=== PATIENT | female | born 1990 ===

== ENCOUNTER 2022-04-30 15:04 | Outpatient (CLI) | payer BC, SELFPAY ==
--- OUTSIDE RECORDS SUMMARY | 2022-05-05 14:48 | XMS_ITS | Clinical Summary ---
:1990 Author Organization [facility] [place] [address] Care Team Providers Name Role Phone Pcp, No Primary Care Provider Unavailable Allergies Active Allergy Reactions Severity Noted Date Comments Etonogestrel Other - Describe In Comment Field Low 019 Mood symptoms Medications Medication Sig Dispensed Refills Start Date End Date Status FLUoxetine Take 3 90 Capsule 5 04/25/2022 Active (PROZAC) 20 mg Capsules (60 capsuleIndications mg) by mouth : Anxiety and every morning. depression FLUoxetine Take 1 Capsule 30 Capsule 2 12/18/2021 04/20/20 Di scontinued (PROZAC) 20 mg (20 mg) by 22 capsuleIndications mouth every : Anxiety and morning. depression fluticasone (50 Inhale 1-2 16 g 0 03/29/2022 04/07/20 Di scontinued mcg per actuation) Sprays to both 22 (*Med nasal solution nostrils two co mplete/Regimen (FLONASE)Indicatio times daily complete/Level ns: Nasal for 14 days. of care change) congestion fluconazole Take one tab 3 Tablet 0 04/07/2022 04/25/20 Disc ontinued (DIFLUCAN) 150 mg every 2-3 days 22 (*Med tabletIndications: as needed for complete/Regimen Yeast vaginitis yeast. Do not complete/Level use in of care ch danette) metroNIDAZOLE Take 1 Tablet 14 Tablet 0 04/07/2022 04/14/20 E xpired (FLAGYL) 500 mg (500 mg) by 22 tabletIndications: mouth two Bacterial times daily vaginosis for 7 days. FLUoxetine TAKE 1 30 Capsule 0 04/20/2022 04/25/20 Discont inued (PROZAC) 20 mg CAPSULE(20 MG) 22 (Reorder capsuleIndications BY MOUTH EVERY (E-cancel not : Anxiety and MORNING sent)) depression Active Problems Problem Noted Date Severe episode of recurrent major depressive disorder, without psychotic 12/05/2021 features ASCUS with positive high risk HPV cervical 08/06/2017 Overview: 08/14/2017 ASCUS/HPV+ 09/2019 NIL 06/2021 ASCUS/HPV+, HPV 16/18 negative 09/2021: colposcopy: CIN1 at 3 and 9 o'cl ock: PAP SMEAR with HPV in 12 months. Anxiety and depression Resolved Problems Problem Noted Date Resolved Date Nexplanon in place 06/09/2018 06/18/2021 Active labor at term 08/26/2014 08/26/2014 Encounters Date Type Specialty Care Team Description 04/25/2022 Office Visit Kalpana Champion MD Medi cation Management (follow up on A nxiety and Depression and medication Fluoxetine. ) 04/25/2022 Travel 04/19/2022 Refill Kalpana Champion MD Refi ll Request (Fluoxetine) 04/07/2022 Office Visit Gino Johnson Thro at Problem; Ear Problem 04/07/2022 Office Visit Throat Problem 04/07/2022 Travel 03/29/2022 Office Visit Gina Guido, KHUSHI Throat P ain/problem (Sore throat, nasal d rainage x 5 days); Ear Pain /problem (Right ear pain - worse when laying down) 03/29/2022 Travel from Last 3 Months Immunizations Name Administration Dates Next Due DTP 12/13/1995, 10/10/1994, 04/03/1993, 1992 DTaP 01/17/1998, 12/13/1995, 10/10/1994, 04/03/1993, 1992 Hepatitis B (Peds) 06/12/2005, 01/14/1996, 12/13/1995 Hepatitis B, Unspecified 06/12/2005, 01/14/1996, 12/13/1995 Hib Conjugate, Unspecified 01/14/1996, 12/13/1995 Inactivated Polio Vaccine 01/17/1998, 12/13/1995, 10/10/1994 , 04/03/1993, 1992 MMR 08/29/2014, 01/17/1998, 03/04/1993 Meningococcal Vaccine 08/29/2014 Meningococcal, Unspecified 08/29/2014 Oral Polio Vaccine 01/17/1998 Polio Virus, Unspecified 12/13/1995, 10/10/1994, 04/03/1993, 1992 Td (Age >=7 Years) 02/18/2012, 01/08/2005 Td, Preservative Free (age >= 7 Years) 01/08/2005 Tdap 03/05/2020, 02/18/2012 Family History Medical History Relation Name Comments No Known Problems Brother No Known Problems Daughter No Known Problems Father No Known Problems Half-Brother No Known Problems Half-Sister No Known Problems Maternal Aunt No Known Problems Maternal Grandfather No Known Problems Maternal Grandmother No Known Problems Maternal Uncle Diabetes Mother No Known Problems Other No Known Problems Paternal Aunt No Known Problems Paternal Grandfather No Known Problems Paternal Grandmother No Known Problems Paternal Uncle Cancer-breast Sister Deep vein thrombosis Sister No Known Problems Son Relation Name Status Comments Brother Daughter Father Alive Half-Brother Half-Sister Maternal Aunt Maternal Grandfather Maternal Grandmother Maternal Uncle Mother Alive Other Paternal Aunt Paternal Grandfather Paternal Grandmother Paternal Uncle Sister Son Social History Tobacco Use Types Packs/Day Years Used Date Current Every Day Smoker Cigarettes 0.25 8 Smokeless Tobacco: Never Used Qu it: 04/03/2014 Tobacco Cessation: Ready to Quit: Yes; C ounsshyla Given: Yes Comments: 2-3 cigerttes a day Alcohol Use Standard Drinks/Week Comments Yes 0 (1 standard drink = 0.6 oz pure occasi onally wine, beer or liquor alcohol) Alcohol Habits Answer Date Recorded How often do you have a drink Not asked containing alcohol? How many drinks containing alcohol do Not asked you have on a typical day when you are drinking? How often do you have six or more Not asked drinks on one occasion? 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 Obstetrics History Para Term AB IAB SAB Ectopic Multiple Living Live Births 1 1 1 0 0 0 0 0 0 1 1 Date Outcome GA Total Labor/2nd/3rd Weight Sex Delivery Anes PTL Julee A 1 A5 Name Clin Labor 08/26 Term 38w 3.88 kg M Spina N Steffi 9 9 AGUILAR Coppe /2014 6d (8 lb l ng ,BB s, 8.9 oz) (CELE paula ) B Delivery Location: [facility] Last Filed Vital Signs Vital Sign Reading Time Taken Comments Blood Pressure 95/60 04/25/2022 10:57 AM BATTERY INSPECTOR Pulse 74 04/25/2022 10:57 AM BATTERY INSPECTOR Temperature 36.6 ??C (97.8 ??F) 04/07/2022 8:05 PM CDT Respiratory Rate 16 04/07/2022 8:05 PM CDT Oxygen Saturation 98% 04/25/2022 10:57 AM BATTERY INSPECTOR Inhaled Oxygen Concentration - - Weight 78 kg (172 lb 1 oz) 04/25/2022 10:57 AM BATTERY INSPECTOR Height 161.3 cm (5' 3.5) 12/18/2021 2:52 PM CDT Body Mass Index 30 12/18/2021 2:52 PM CDT Plan of Treatment Upcoming Encounters Date Type Specialty Care Team Description 05/26/2022 Office Visit Kalpana Champion MD [address] [place], [place] [address] (Wo rk) Health Maintenance Due Date Last Done Comments Pneumococcal series for age 19-64 1998 (1 - PCV) HIV for age 15-65 10/02/2007 Hepatitis C screening for age 0410/01/2010 18-79 COVID-19 vaccine series (2 - 11/13/2020 10/23/2020 Pfizer series) Influenza for age 9-49 02/06/2022 Pap test for age 21-65 09/17/2022 09/17/2021, 06/18/2021, 06/18/2021, Additional history exists BMI (ht and wt on same day) for 12/18/2022 12/18/2021, 11/07, age 18+ 09/17/2021, Additional history exists Depression screening for age 12+ 04/25/2023 04/25/2022, , 12/04/2021, Additional history exists Tetanus booster 03/05/2030 03/05/2020, 02/18/2012, 02/18/2012, Additional history exists Tdap Completed 03/05/2020, 02/18/2012 Procedures Procedure Name Priority Date/Time Associated Comments Diagnosis THROAT RAPID STREP STAT 04/07/2022 8:15 PM Sore throat Res ults for this ONLY CLINIC CDT procedure are i n the results section. URINALYSIS STAT 04/07/2022 8:07 PM Dysuria Results f or this MICROSCOPIC CDT procedure are i n the results section. UA W/ SEDIMENT EXAM STAT 04/07/2022 8:07 PM Dysuria Re sults for this REFLEXED PER CRITERIA CDT proced ure are in the results section. from Last 3 Months Results THROAT RAPID STREP ONLY CLINIC (04/07/2022 8:15 PM CDT) Analysis Performed At [facility] Time Signature THROAT RAPID Negative 04/07/2022 [place] STREP A 8:32 PM CDT [facility] Specimen Anatomical Collection Method Collection Time Receive d Time (Source) Location / / Volume Laterality Throat SPECIMEN FROM Non-Blood / 04/07/2022 8:15 PM 04/07/20 22 8:21 THROAT / Unknown Unknown CDT PM CDT Gino Johnson MD MICROBIOLOGY Performing Organization Address City/State/ZIP Code Phon e Number [facility] [address] [place] [address] (ABNORMAL) URINALYSIS MICROSCOPIC (04/07/2022 8:07 PM CDT) Patholo gist Method Time Signature RBC 0-2 0-2, None 04/07/2022 [place] Seen /HPF 8:34 PM [facility]T [facility] WBC 26-50 (A) 0-2, 3-5, 04/07/2022 [place] None Seen 8:34 PM [facility]T [facility] /HPF LABORATORY BACTERIA Few None 04/07/2022 [place] Seen, 8:34 PM CDT [facility] Rare, Few LABORATORY Bacteria/ HPF EPITHELIAL Many (A) None 04/07/2022 [place] CELLS Seen, Few 8:34 PM [facility] Epi/HPF LABORATORY Mucus Present 04/07/2022 [facility] 8:34 PM [facility] Specimen Anatomical Collection Method Collection Time Receive d Time (Source) Location / / Volume Laterality Urine URINE SPECIMEN / Non-Blood / 04/07/2022 8:07 PM 04/07 8:16 Unknown Unknown [facility] G[facility] MD URINE Performing Organization Address City/State/ZIP Code Phon e Number [facility] [address] [place] [address] (ABNORMAL) UA W/ SEDIMENT EXAM REFLEXED PER CRITERIA (04/07/2022 8:07 PM [facility] Method Time Signature COLOR Yellow Yellow Color 04/07/2022 [place] 8:34 PM [facility] CLARITY Cloudy (A) Clear 04/07/2022 [place] Clarity 8:34 PM [facility] SPECIFIC >=1.030 (A) 1.010, 04/07/2022 [facility] GRAVITY,URINE 1.015, 8:34 PM [facility] MEDICAL 1.020, 1.025 CENTER LABORATORY PH,URINE 6.0 6.0, 7.0, 04/07/2022 [place] 8.0, 5.5, 8:34 PM [facility] 6.5, 7.5, CENTER 8.5 LABORATORY UROBILINOGEN, Normal Normal EU/dl 04/07/2022 [place] QUALITATIVE 8:34 PM [facility] PROTEIN, Trace (A) Negative 04/07/2022 [facility] URINE mg/dL 8:34 PM [facility] GLUCOSE, Negative Negative 04/07/2022 [place] URINE mg/dL 8:34 PM [facility] KETONES,URINE Negative Negative 04/07/2022 [facility] mg/dL 8:34 PM [facility] BILIRUBIN,URI Abnormal (A) Negative 04/07/2022 [facility] [place] 8:34 PM [facility] Comment: A variety of metabolites and/or medications may result in a positive bilirubin result. Clinical correlation i s recommended. OCCULT BLOOD,URINE Negative Negative 04/07/2022 8:34 PM [facility] NITRITE Negative Negative 04/07/2022 8:34 PM [facility] LEUKOCYTE ESTERASE Large (A) Negative 04/07/2022 8:34 PM [facility] Specimen Anatomical Collection Method Collection Time Receive d Time (Source) Location / / Volume Laterality Urine URINE SPECIMEN / Non-Blood / 04/07/2022 8:07 PM 04/07 8:16 Unknown Unknown CDT PM CDT Gino Johnson MD URINE Performing Organization Address City/State/ZIP Code Phon e Number [facility] [address] [place] [address] from Last 3 Months Insurance Payer Benefit Plan / Subscriber ID Effective Dates Phone Addre ss Type Group BLUE [employer]OSS [place] BLUE ADVANTAGE [id number] 2019-Present [address] [address] [place] [address] [place] [address] [facility] Health/Steve Employer 06/08/2000 [place] [employer] [place] (Home) DEPT [id number] [place] [phone] [facility] Pearl TERRY (Work) JOSH ENGLE [id number] Advance Directives Latest Code Status on File Code Status Date Activated Date Inactivated Comments Full Code 08/26/2014 12:09 AM 08/29/2014 4:20 PM Full Code 08/25/2014 11:28 PM 08/26/2014 12:09 AM Full Code 05/05/2014 7:44 AM 05/05/2014 11:15 AM Care Teams [employer] Relationship Specialty Start Date End Date Pcp, No PCP - General 05/05/14 .
--- OUTSIDE RECORDS SUMMARY | 2022-05-05 14:48 | XMS_ITS | Clinical Summary ---
:1990 Author Organization [facility] Address [address] [place] [address] Care Team Providers Name Role Phone Unavailable Primary Care Provider Unavailable Source Comments Patient records contain information from all sites at [facility]. For routine questions regarding patient records, call [phone] during business hours, M-F 8:00 AM - 5:00 PM Central Time. Record requests for emergency care only can be directed to [phone] at any time.[facility] Allergies No known active allergies Medications No known medications Active Problems No known active problems Immunizations Name Administration Dates Next Due DTP 12/13/1995, 10/10/1994, 04/03/1993, 11/07 DTaP (Infanrix, [employer]) 01/17/1998 HepB, Unspecified 06/12/2005, 01/14/1996, 12/13/1995 MMR 01/17/1998, 03/04/1993 OPV 01/17/1998 Tdap 02/18/2012 Family History Medical History Relation Name Comments Diabetes Mother Relation Name Status Comments Mother Social History Tobacco Use Types Packs/Day Years Used Date Smoking Tobacco: Every Day Sex Assigned at Date Recorded Not on file Last Filed Vital Signs Vital Sign Reading Time Taken Comments Blood Pressure 95/62 08/02/2021 10:05 AM LEAVE SPECIALIST Pulse 71 08/02/2021 10:05 AM LEAVE SPECIALIST Temperature - - Respiratory Rate 20 01/03/2014 4:40 PM CDT Oxygen Saturation - - Inhaled Oxygen Concentration - - Weight 72 kg (158 lb 11.7 oz) 08/02/2021 10:05 AM LEAVE SPECIALIST Height 163 cm (5' 4.17) 08/02/2021 10:05 AM LEAVE SPECIALIST Body Mass Index 27.1 08/02/2021 10:05 AM LEAVE SPECIALIST Plan of Treatment Health Maintenance Due Date Last Done Comments Hepatitis C Screening 1990 Tobacco Cessation counseling 1992 Pneumococcal vaccine (0-64 years) 1998 (1 - PCV) COVID-19 Vaccine (2 - Pfizer 11/13/2020 10/23/2020 series) Depression Screening (Annual 06/08/2021 PHQ-2) Influenza Vaccine (#1) 2022 Cervical Cancer Screening 06/18/2024 06/18/2021 DTaP,Tdap,and Td Vaccines (8 - Td 03/05/2030 03/05/2020, , or Tdap) 01/08/2005, Additional history exists Hepatitis B Vaccines Completed 06/12/2005, 06/12/2005, 01/14/1996, Additional history exists HIV Screening Completed 03/14/2014 Insurance Payer Benefit Plan Subscriber ID Effective Phone Address Typ e / Group Dates BLUE CROSS BCBS BLUE [id number] 2019-Prese ATTN: Dilcia myers HMO BLUE SHIELD PLUS HMO nt [employer] [facility] [address] [address] [place] [address]
--- OUTSIDE RECORDS SUMMARY | 2022-05-05 14:49 | XMS_ITS | Encounter Summary ---
:1990 Author Organization [facility] Address [address] [place] [address] Care Team Providers Name Role Phone Unavailable Primary Care Provider Unavailable Encounter Details Date Type Department Care Team Description 08/25/2014 Hospital Encounter [facility]X [facility]BGY[facility]cy Wilson M.D. [address] [place], [place] [phone] (Wo rk) Social History Tobacco Use Types Packs/Day Years Used Date Smoking Tobacco: Never Assessed Sex Assigned at Date Recorded Not on file documented as of this encounter Last Filed Vital Signs Vital Sign Reading Time Taken Comments Blood Pressure 110/68 08/25/2014 2:18 PM CDT Pulse - - Temperature - - Respiratory Rate - - Oxygen Saturation - - Inhaled Oxygen Concentration - - Weight 83.9 kg (184 lb 15.5 oz) 08/25/2014 2:18 PM CDT Height 163 cm (5' 4.17) 08/25/2014 2:18 PM CDT Body Mass Index 31.58 08/25/2014 2:18 PM CDT documented in this encounter Progress Notes Tessy Gannon M.D. - 08/25/2014 2:44 PM CDT CHIEF COMPLAINT: care, third trimester. HISTORY OF PRESENT ILLNESS: This patient presents for a visit in the third trimester. She has no unusual complaints today and is not experiencing severe hyperemesis nor vaginal bleeding. She is tolerating PO well, and is taking vitamins. movement is reported as good. CURRENT MEDICATIONS and ALLERGIES have been reviewed and are current in the EMR as of today's date. Refer to the patient's accompanying ACOG form for established TAMY, documentation of prior obstetric history, laboratory information, and summary of medical record. Physical exam: Vital signs are reviewed, stable, and in the normal range as documented in the EMR as of today's date. General: well nourished, well developed female in no acute distress. Weight gain is documented on the ACOG form. Fundal height is appropriate for gestational age. Heart Tones are in the normal range by doppler interrogation. OB labs reviewed today. Glucose test results and hemoglobin are documented in the EMR. A group B strep test is documented in the EMR. Cervical exam was performed, results are 1-2 cm, membranes were swept IMPRESSION/REPORT/PLAN: Third trimester . Recommendations: Follow up visit is scheduled in one week. kick counts is an important home monitor of well being. Report to labor and delivery (which is staffed 24 hours a day) when regular, frequent, painful contractions are present. Report also if vaginal bleeding nor rupture of membranes occurs (as evidenced bya gush of clear fluid followed by continued leakage). Tessy Morocho CC: Labor and Delivery Electronically Signed By: TESSY GANNON MD On: 08/25/2014 02:44 PM Source: [facility] POWERCHART Document Id: [id number] documented in this encounter Nursing Notes Tessy Gannon M.D. - 08/25/2014 2:43 PM CDT Ambulatory Patient Education The following Patient Education Materials have been given to the patient: Patient Education Materials: Mud Worker Adapting to : Third Trimester Mud Worker Adapting to : Third Trimester Although common during , some discomforts may seem worse in the final weeks. Simple lifestyle changes can help. Take care of yourself. And ask your partner to help out with small tasks. Limiting Leg Problems ?? Wear support hose all day. ?? Avoid snug shoes and clothes that bind, such as tight pants and socks with elastic tops. ?? Sit with your feet and legs raised often. Caring for Your Breasts ?? Wash with plain water. Avoid using harsh soaps or rubbing alcohol. They may cause dryness. ?? Wear a nursing bra for extra support. It can also hide any leaks from your nipples. Controlling Hemorrhoids ?? Eat foods that are high in fiber. Also, exercise and drink enough fluids. This will reduce constipation and hemorrhoids. ?? Sleep and nap on your side. This limits pressure on the veins of the rectum. ?? Try not to stand or sit for long periods. Controlling Back Pain As your body changes during , your back must work in new ways. Back pain is due to many causes. Physical changes in your body can strain your back and its supporting muscles. Also, hormones (chemicals that carry messages throughout the body) increase during . This can affect how the muscles and joints work together. All of these changes can lead to pain. Pain may occur in the upper or lower back. Pain is also common in the pelvis. Some women have sciatica, pain caused by pressure on the sciatic nerve running down the back of the leg. Ask your healthcare provider for specific tips and exercises to help control your back pain. Tips to Help You Rest Good rest and sleep will help you feel better. Here are some ideas: ?? Ask your partner to massage your shoulders, neck, or back. ?? Limit the errands you do each day. ?? Lie down in the afternoon or after work for a few minutes. ?? Take a warm bath before you go to sleep. ?? Drink warm milk or teas without caffeine. ?? Avoid coffee, black tea, and cola. Stopping Heartburn Avoid spicy or acidic foods. Eat small amounts more often. Eat slowly. Wait 2 hours after eating before lying down. Sleep with your upper body raised 6 inches. Managing Mood Swings ?? Know that mood changes are normal. ?? Exercise often, but get plenty of rest. ?? Address any concerns and limit stress. Talking to your partner, other women, or your healthcare provider may help. Dealing with Urinary Frequency ?? Drink plenty of water all day. If you drink a lot in the evening, though, you may have to get up more in the night. ?? Limit coffee, black tea, and cola. ?? [id number] Jocy Moreno, [address] [place] [address], [place] [address]. All rights reserved. This information is not intended as a substitute for professional medical care. Always follow your healthcare professional's instructions. This document has images extracted. Please consider using [employer] for all your patient education needs. Source: [facility] POWERCHART Document Id: [id number] documented in this encounter Miscellaneous Notes Miscellaneous - Alfredo Powell - 08/28/2014 11:13 AM CDT Reminder Msg-reminder call Document Contains Addenda Addendum by ALFREDO POWELL on 20 September 2014 14:44:42 CDT Called patient to remind of 6 week post check on 10-06-14 at 10:[address] Gannon From: ALFREDO POWELL To: ALFREDO POWELL; Sent: 08/28/2014 11:13:54 CDT Show up: 09/18/2014 08:00:00 CDT Subject: Reminder Msg-reminder call Due Date/Time: 09/18/2014 08:00:00 CDT Please Remember to: Call patient to schedule a 6 week post check on 10-02-[address] Gannon PATIENT: ( ) Call Patient ( ) Ask Patient to ( ) ( ) Call Relative ( ) Schedule Patient ( ) ( ) Call for Billing Services Manager ( ) Follow up on Results ( ) Other: PROVIDER: ( ) Call Physician ( ) Call Pharmacist ( ) Call Lab ( ) Other: Special Instructions: Comments: Source: [facility] POWERCHART Document Id: [id number] Miscellaneous - Tessy Gannon M.D. - 08/25/2014 2:43 PM CDT Ambulatory Patient Summary [facility] [address] [place] [id number] Visit Information Name: CELE AGUILAR [facility] Number: [id number] Current Date: 08/25/2014 14:43:51 Physicians Attending Provider: TESSY GANNON MD Primary Care Provider: PCP, UNASSIGNED - CELE SHAY has been given the following list of follow-up instructions, medication list, and patient education materials: Follow-up Instructions Your Medications Here is a list of your medications. It is important to take your medications as directed. Use a pillbox or chart to help remind you to take your medications. Please let your doctor or nurse know if you have problems taking your medications. Medication/Strength How to Take Indications/Special Instructions/Comments/Notes for Patient Medication Changes/Routing clotrimazole topical (Clotrimazole-7 vaginal cream with applicator) 1 shelia, Vaginal, once a day (at bedtime) multivitamin, ( Multivitamins oral tablet) 1 Tablet(s), Oral, once a day Stop Taking the Following Medications: Medication list as of 08-25-14 14:43 Attention: If you have any medications at home that are not on this list, DO NOT take them until youcontact your provider for clarification. Give a copy of your medication list to your primary care provider. Update your medication list any time medications or doses are changed and carry your medication list at all times in case of emergency. Electronically Signed By: TESSY GANNON MD Signed On:25-AUG-2014 14:43:39 Your Allergies & Intolerances Substance Reaction Symptoms Category Comments No Known Allergies Drug Your Problem List Problem Status Onset Comments Active 11/27/2013 Your Upcoming Appointments Date Time Location Provider 09/01/2014 14:45 [facility] CLINICAL ASSESSMENT MANAGER Tessy Gannon MD Attention: Contact your local Clinic if further appointment detail needed. Adapting to : Third Trimester Although common during , some discomforts may seem worse in the final weeks. Simple lifestyle changes can help. Take care of yourself. And ask your partner to help out with small tasks. Limiting Leg Problems ?? Wear support hose all day. ?? Avoid snug shoes and clothes that bind, such as tight pants and socks with elastic tops. ?? Sit with your feet and legs raised often. Caring for Your Breasts ?? Wash with plain water. Avoid using harsh soaps or rubbing alcohol. They may cause dryness. ?? Wear a nursing bra for extra support. It can also hide any leaks from your nipples. Controlling Hemorrhoids ?? Eat foods that are high in fiber. Also, exercise and drink enough fluids. This will reduce constipation and hemorrhoids. ?? Sleep and nap on your side. This limits pressure on the veins of the rectum. ?? Try not to stand or sit for long periods. Controlling Back Pain As your body changes during , your back must work in new ways. Back pain is due to many causes. Physical changes in your body can strain your back and its supporting muscles. Also, hormones (chemicals that carry messages throughout the body) increase during . This can affect how the muscles and joints work together. All of these changes can lead to pain. Pain may occur in the upper or lower back. Pain is also common in the pelvis. Some women have sciatica, pain caused by pressure on the sciatic nerve running down the back of the leg. Ask your healthcare provider for specific tips and exercises to help control your back pain. Tips to Help You Rest Good rest and sleep will help you feel better. Here are some ideas: ?? Ask your partner to massage your shoulders, neck, or back. ?? Limit the errands you do each day. ?? Lie down in the afternoon or after work for a few minutes. ?? Take a warm bath before you go to sleep. ?? Drink warm milk or teas without caffeine. ?? Avoid coffee, black tea, and cola. Stopping Heartburn Avoid spicy or acidic foods. Eat small amounts more often. Eat slowly. Wait 2 hours after eating before lying down. Sleep with your upper body raised 6 inches. Managing Mood Swings ?? Know that mood changes are normal. ?? Exercise often, but get plenty of rest. ?? Address any concerns and limit stress. Talking to your partner, other women, or your healthcare provider may help. Dealing with Urinary Frequency ?? Drink plenty of water all day. If you drink a lot in the evening, though, you may have to get up more in the night. ?? Limit coffee, black tea, and cola. ?? [id number] [facility], [address] [place] [address], [place] [address]. All rights reserved. This information is not intended as a substitute for professional medical care. Always follow your healthcare professional's instructions. Your Goals/Additional instructions: This document has images extracted. Please consider using [employer] for all your patient education needs. Source: [facility] POWERCHART Document Id: [id number] Axel - Tessy Gannon M.D. - 08/25/2014 2:43 PM CDT Ambulatory Discharge Medication List [facility] [address] [place], [place] [address] [place] [id number] Visit Information Name: CELE AGUILAR [facility] Number: [id number] Visit Date: 08/25/2014 14:43:50 Attending Provider: TESSY GANNON MD Primary Care Provider: PCP, UNASSIGNED - CELE SHAY has been given the following list of medications: Your Medications It is important to take your medications as directed. Use a pill box or chart to help remind you to take your medications. Please let your doctor or nurse know if you have problems taking your medications. Medication/Strength How to Take Indications/Special Instructions/Comments/Notes for Patient Medication Changes/Routing clotrimazole topical (Clotrimazole-7 vaginal cream with applicator) 1 shelia, Vaginal, once a day (at bedtime) multivitamin, ( Multivitamins oral tablet) 1 Tablet(s), Oral, once a day Stop Taking the Following Medications: Medication list as of 08-25-14 14:43 Attention: If you have any medications at home that are not on this list, DO NOT take them until youcontact your provider for clarification. Give a copy of your medication list to your primary care provider. Update your medication list any time medications or doses are changed and carry your medication list at all times in case of emergency. Electronically Signed By: TESSY GANNON MD Signed On:25-AUG-2014 14:43:39 Additional Information: Source: [facility] POWER[facility] Document Id: [id number] Axel - Lisa Hernandez, L.P.N. - 08/25/2014 2:18 PM CDT Adult Department Director Intake/History Adult Department Director Intake/History Entered On: 08/25/2014 14:22 CDT Performed On: 08/25/2014 14:18 CDT by LISA HERNANDEZ Intake Chief Complaint : 38 5/7 wk ob check Systolic Blood Pressure : 110 mmHg Diastolic Blood Pressure : 68 mmHg NIBP Mean : 82 mmHg BP Location : Left upper extremity Blood Pressure Cuff Size : Large Height : 163 cm(Converted to: 5 ft 4 inch(es), 64 inch(es)) Actual Weight : 83.9 kg(Converted to: 184 lb 15 oz) Dosing Weight Clinic : 83.9 kg Clinic BSA : 1.95 Body Mass Index : 31.58 kg/m2 LISA HERNANDEZ - 08/25/2014 14:18 CDT General Info Languages : Tamazight, Armenian Is Patient Female and 13-50 no hysterectomy : No LISA HERNANDEZ - 08/25/2014 14:18 CDT Subjective Pain Symptoms : No LISA HERNANDEZ - 08/25/2014 14:18 CDT Dependent Habits Tobacco Use/Currently Using : Yes Exposure to Tobacco Smoke : Patient smokes Smoking Status : Current every day smoker LISA HERNANDEZ - 08/25/2014 14:18 CDT Tobacco Use Grid Type : Cigarettes Cigarette Use Packs/Day : 0.5 LISA HERNANDEZ - 08/25/2014 14:18 CDT ID Screen Travel Within Last 21 Days : No Contact with someone with Ebola : No LISA HERNANDEZ - 08/25/2014 14:18 CDT Source: k[facility]ARIA Document Id: [id number] CDT!29 documented in this encounter Plan of Treatment Not on filedocumented as of this encounter Visit Diagnoses Not on filedocumented in this encounter
--- OUTSIDE RECORDS SUMMARY | 2022-05-05 14:49 | XMS_ITS | Encounter Summary ---
:1990 Author Organization [facility] Address [address] [place] [address] Care Team Providers Name Role Phone Unavailable Primary Care Provider Unavailable Reason for Visit Reason Comments [facility]O REview [facility] Encounter Details Date Type Department Care Team Description 08/05/2021 Office Visit Department of Occupational Yousif Villa, Drug Screen Medicine in Cesar Segura M.D., M.P. H. [address] [phone] (Wo rk) Social History Tobacco Use Types Packs/Day Years Used Date Smoking Tobacco: Every Day Sex Assigned at Date Recorded Not on file documented as of this encounter Progress Notes Edna Brothers L.PLupisN. - 08/05/2021 8:45 AM CST MRO Review for [facility]. CASE ASSEMBLER documented in this encounter Plan of Treatment Not on filedocumented as of this encounter Visit Diagnoses Diagnosis Drug Screen documented in this encounter Additional Health Concerns Assessment Noted Time PHQ-9 Depression Total Score: 6 11/12/2015 4:00 PM CDT documented as of this encounter
--- OUTSIDE RECORDS SUMMARY | 2022-05-05 14:49 | XMS_ITS | Encounter Summary ---
:1990 Author Organization [facility] Address [address] [place] [address] Care Team Providers Name Role Phone Unavailable Primary Care Provider Unavailable Encounter Details Date Type Department Care Team Description 04/20/2014 Hospital Encounter HX [facility] Mercy Desai M.D. [address] [place], [place] [phone] (Wo rk) Social History Tobacco Use Types Packs/Day Years Used Date Smoking Tobacco: Never Assessed Sex Assigned at Date Recorded Not on file documented as of this encounter Last Filed Vital Signs Vital Sign Reading Time Taken Comments Blood Pressure - - Pulse - - Temperature - - Respiratory Rate - - Oxygen Saturation - - Inhaled Oxygen Concentration - - Weight - - Height 163 cm (5' 4.17) 04/20/2014 10:23 AM HORIZONTAL BORING MILL OPERATOR Body Mass Index - - documented in this encounter Plan of Treatment Not on filedocumented as of this encounter Procedures Procedure Name Priority Date/Time Associated Diagnosis Comme nts US OB GREATER THAN Routine 04/20/2014 10:36 AM Re sults for this 14 WEEKS HORIZONTAL BORING MILL OPERATOR procedure are i n the results section. documented in this encounter Results US OB Greater than 14 weeks (04/20/2014 10:36 AM HORIZONTAL BORING MILL OPERATOR) Anatomical Region Laterality Modality Ultrasound Specimen (Source) Anatomical Collection Method Collection Time Re ceived Time Location / / Volume Laterality 04/20/2014 10:36 AM HORIZONTAL BORING MILL OPERATOR Addenda Addendum by Provider, Kay Sims 04/20/2014 10:36 AM HORIZONTAL BORING MILL OPERATOR RAD^^^OW US OB Greater than 14 weeks 04/20/2014 10:36:07 Impressions 04/21/2014 2:57 PM HORIZONTAL BORING MILL OPERATOR 1. Viable with TAMY of August , consistent with prior dates. 2. anatomic survey appears normal, gender is male. In general, it is reasonable to use the sonographically derived TAMY if it differs from that calculated using the last menstrual period (LMP) by more than seven days in the fir st trimester and by more than 10 days in the second trimester. In the third trimester, a three-week discrepancy between LMP dating and ultra sound dating is allowed before changing TAMY. No anomalies were detected by estela france's survey. Results shared with the patient were done with a n understanding of the limitations of ultrasound for detection of aneuploidy, as well as congenital heart defects. [facility] in [place] MANAGER SOURCING Dept. [phone] Narrative 04/21/2014 2:57 PM HORIZONTAL BORING MILL OPERATOR EXAM: US OB Greater than 14 weeks INDICATION: Survey REFERRING PHYSICIAN: Jagdeep MAGNET VALVE ASSEMBLER: Juliana Recio RDMS. : 9 ?? PARA: 5 LMP: November 20, 2013 ? TAMY by LMP: Aug ?EGA by LMP: 21 weeks and 4 days NUMBER: One ??CHORIONICITY: N/A UTERUS: Visually normal. CERVIX: 3.9 cm PLACENTA: Posterior with no evidence of placenta previa nor abruption. ADNEXA: Visually normal, no adnexal mass es detected. AMNIOTIC FLUID INDEX: Appropriate and no rmal for gestational age at 10.7 cm. BIOMETRY GA(BPD): 4.79 cm, 20 weeks and 3 days GA(HC): 18.0 cm, 20 weeks and 2 days GA(AC): 15.1 cm, 20 weeks and 2 days GA(FL): 3.37 cm, 20 weeks and 4 days GA(HL): 3.19 cm, 20 weeks and 4 days Based on the above, the average ultrasou nd age is 20 weeks and 2 days. See 'Impression' below for ultrasound ca lculation of Estimated Date of Delivery (TAMY). The following anatomic features we re well visualized and appear normal today: SPINE (longitudinal and transverse): Nor mal CEREBELLUM: Normal CISTERNA MAGNA: Normal NUCHAL FOLD: Normal LATERAL VENTRICLES: Normal CHOROID PLEXUS: Normal FOUR CHAMBER HEART: Normal HEART RATE: 160 beats per minute CARDIAC AXIS: Normal RIGHT AND LEFT OUTFLOW TRACTS: Normal ANTERIOR ABDOMINAL WALL: Normal DIAPHRAGM: Normal CORD INSERTION: Normal THREE VESSEL CORD: Normal STOMACH: Normal BLADDER: Normal KIDNEYS: Normal EXTREMITIES (arms and legs): Normal HANDS AND FEET: Normal ORBITS: Normal PROFILE: Normal NOSE AND LIPS: Normal CORD INSERTION AT PLACENTA: Normal Procedure Note Shamar Gannon M.D. / Provider, Funmilayo blevins M.D. - 10/18/2016 EXAM: US OB Greater than 14 weeks INDICATION: Survey REFERRING PHYSICIAN: Jagdeep MAGNET VALVE ASSEMBLER: Juliana Recio RDMS. : 9 PARA: 5 LMP: November 20, 2013 TAMY by LMP: August 27, 2014 EGA by LMP: 21 weeks and 4 days NUMBER: One CHORIONICITY: N/A UTERUS: Visually normal. CERVIX: 3.9 cm PLACENTA: Posterior with no evidence of placenta previa nor abruption. ADNEXA: Visually normal, no adnexal mass es detected. AMNIOTIC FLUID INDEX: Appropriate and no rmal for gestational age at 10.7 cm. BIOMETRY GA(BPD): 4.79 cm, 20 weeks and 3 days GA(HC): 18.0 cm, 20 weeks and 2 days GA(AC): 15.1 cm, 20 weeks and 2 days GA(FL): 3.37 cm, 20 weeks and 4 days GA(HL): 3.19 cm, 20 weeks and 4 days Based on the above, the average ultrasou nd age is 20 weeks and 2 days. See 'Impression' below for ultrasound ca lculation of Estimated Date of Delivery (TAMY). The following anatomic features we re well visualized and appear normal today: SPINE (longitudinal and transverse): Nor mal CEREBELLUM: Normal CISTERNA MAGNA: Normal NUCHAL FOLD: Normal LATERAL VENTRICLES: Normal CHOROID PLEXUS: Normal FOUR CHAMBER HEART: Normal HEART RATE: 160 beats per minute CARDIAC AXIS: Normal RIGHT AND LEFT OUTFLOW TRACTS: Normal ANTERIOR ABDOMINAL WALL: Normal DIAPHRAGM: Normal CORD INSERTION: Normal THREE VESSEL CORD: Normal STOMACH: Normal BLADDER: Normal KIDNEYS: Normal EXTREMITIES (arms and legs): Normal HANDS AND FEET: Normal ORBITS: Normal PROFILE: Normal NOSE AND LIPS: Normal CORD INSERTION AT PLACENTA: Normal IMPRESSION: 1. Viable with TAMY of August , consistent with prior dates. 2. anatomic survey appears normal, gender is male. In general, it is reasonable to use the sonographically derived TAMY if it differs from that calculated using the last menstrual period (LMP) by more than seven days in the fir st trimester and by more than 10 days in the second trimester. In the third trimester, a three-week discrepancy between LMP dating and ultra sound dating is allowed before changing TAMY. No anomalies were detected by estela france's survey. Results shared with the patient were done with a n understanding of the limitations of ultrasound for detection of aneuploidy, as well as congenital heart defects. [facility] in [place] MANAGER SOURCING Dept. [phone] Juliana Recio R.V.T., RCandice.MLupisS. IMG OB US PROCEDURE S documented in this encounter Visit Diagnoses Not on filedocumented in this encounter
--- OUTSIDE RECORDS SUMMARY | 2022-05-05 14:49 | XMS_ITS | Encounter Summary ---
:1990 Author Organization [facility] Address [address] [place] [address] Care Team Providers Name Role Phone Unavailable Primary Care Provider Unavailable Encounter Details Date Type Department Care Team Description 01/24/2014 Hospital Encounter [facility] Tessy Gannon M.D. [address] [place], [place] [phone] (Wo rk) Social History [...] - - Height 163 cm (5' 4.17) 01/24/2014 3:49 PM CDT Body Mass Index - - documented in this encounter Miscellaneous Notes Miscellaneous - Tessy Gannon M.D. - 01/25/2014 7:45 AM CDT Results Notification Document Contains Addenda Addendum by KVNG PHILLIPS on 26 January 2014 10:26:35 CDT patient was given results and was transfered to schedule appointment Addendum by KVNG PHILLIPS on 25 January 2014 08:40:17 CDT Left message to call back. From: TESSY GANNON MD Sent: 01/25/2014 07:45:27 CDT ! Show up: 01/25/2014 07:45:27 CDT Subject: Results Notification Actions: Notify patient of results Reminder Comments: She should come in for confirmation of ultrasound with one of our sonographers. Results: Date Result Name Ind Value Ref Range 01/24/2014 15:57 Progesterone Lvl 14.46 ng/mL 01/24/2014 15:57 Beta hCG Qnt (H) 55,048.0 mIU/mL ( - <=25.0) Source: [facility] POWERCHART Document Id: [id number] Electronically signed by Conversion, [facility] Adult Protective Caseworker [id number] at 11/04/2016 8:11 PM CDT documented in this encounter Plan of Treatment Not on filedocumented as of this encounter Procedures Procedure Name Priority Date/Time Associated Diagnosis Comme nts BHCG (BETA-HUMAN Routine 01/24/2014 3:57 PM Resul ts for this CHORIONIC CDT procedure are i n GONADOTROPIN), the results MANUEL, S section. PROGESTERONE, S Routine 01/24/2014 3:57 PM Result s for this CDT procedure are i n the results section. documented in this encounter Results Progesterone Level (01/24/2014 3:57 PM CDT) P athologist Signature Progesterone, S 14.46 NGML POWERCHART Specimen (Source) Anatomical Collection Method Collection Time Re ceived Time Location / / Volume Laterality Blood 01/24/2014 3:57 PM CDT Tessy Gannon M.D. LAB BLOOD ADD-ON Performing Organization Address City/State/ZIP Code Phon e Number POWERCHART (ABNORMAL) bHCG (Beta-Human Chorionic Gonadotropin), Quantitative (01/24/2014 3:57 PM CDT) Analysis Performed At Patho logist Time Signature Beta-HCG, [address].0 <=25.0 POWERCHART Quantitative, (H) MIUML S Specimen (Source) Anatomical Collection Method Collection Time Re ceived Time Location / / Volume Laterality Blood 01/24/2014 3:57 PM CDT Tessy Gannon M.D. LAB BLOOD ADD-ON Performing Organization Address City/State/ZIP Code Phon e Number POWERCHART documented in this encounter Visit Diagnoses Not on filedocumented in this encounter
--- OUTSIDE RECORDS SUMMARY | 2022-05-05 14:49 | XMS_ITS | Encounter Summary ---
:1990 Author Organization [facility] Address [address] [place] [address] Care Team Providers Name Role Phone Unavailable Primary Care Provider Unavailable Encounter Details Date Type Department Care Team Description 08/03/2014 Hospital Encounter [facility]X [facility] OBGYMercy Wilson M.D. [address] [place], [place] [phone] (Wo rk) Social History Tobacco Use Types Packs/Day Years Used Date Smoking Tobacco: Never Assessed Sex Assigned at Date Recorded Not on file documented as of this encounter Last Filed Vital Signs Vital Sign Reading Time Taken Comments Blood Pressure 116/62 08/03/2014 2:04 PM ABRASIVE GRADER Pulse - - Temperature - - Respiratory Rate - - Oxygen Saturation - - Inhaled Oxygen Concentration - - Weight 84.2 kg (185 lb 10 oz) 08/03/2014 2:04 PM ABRASIVE GRADER Height 163 cm (5' 4.17) 08/03/2014 2:04 PM ABRASIVE GRADER Body Mass Index 31.69 08/03/2014 2:04 PM ABRASIVE GRADER documented in this encounter Progress Notes Tessy Gannon M.D. - 08/03/2014 2:15 PM CST CHIEF COMPLAINT: care, third trimester. HISTORY OF PRESENT ILLNESS: This patient presents for a visit in the third trimester. She has no unusual complaints today and is not experiencing severe hyperemesis nor vaginal bleeding. She is tolerating PO well, and is taking vitamins. movement is reported as good. She has been non compliant with her care; this is only the third visit of her entire . She did not report for the glucose test. CURRENT MEDICATIONS and ALLERGIES have been reviewed [...] EMR. A group B strep test is collected and submitted for review. Cervical exam was performed, results are 1cm, mid position, firm IMPRESSION/REPORT/PLAN: Third trimester . Recommendations: It is too late in the gestation to do the glucose test. Follow up visit is scheduled in one week. kick counts is an important home monitor of well being. Regular, frequent, strong and painful contractions may be a sign of labor. Either this or vaginal spotting should be evaluated immediately to allow early intervention and avoidance of delivery. These symptoms are in contrast to related body changes in weight, shape, and hormones thatare associated with musculoskeletal consequences including lordosis and joint laxity. Low back pain is a common complaint in . It is usually caused by mechanical factors. Leg cramps are common in women and can be relived by calf stretching and insuring proper diet to avoid electrolyte imbalances. Tessy Morocho CC: Labor and Delivery Electronically Signed By: TESSY GANNON MD On: 08/03/2014 02:27 PM Source: [facility] POWERCHART Document Id: [id number] SIVE GRADER documented in this encounter Miscellaneous Notes Telephone Encounter - Chica Finley, R.N. - 08/03/2014 3:47 PM ABRASIVE GRADER FW: Prescription routing temporarily unavailable Document Contains Addenda Addendum by KVNG PHILLIPS on 03 August 2014 16:00:48 ABRASIVE GRADER Resent the prescription From: CHICA FINLEY ( Nurse Line) To: LEANA Gannon Nurse; Sent: 08/03/2014 15:47:57 ABRASIVE GRADER Subject: FW: Prescription routing temporarily unavailable The system is currently not able to route this prescription to the pharmacy. Please use another means to communicate this prescription to the intended pharmacy. 1 errors validating against Cable-Sense Xml 10.6mu2.xsd Comments: 1 errors validating against SureGotaCopy Xml 10.6mu2.xsd Source: [facility] [employer] Document Id: [id number] Miscellaneous - Tesys Gannon M.D. - 08/03/2014 2:15 PM CST Ambulatory Patient Summary [facility] [address] [place], [place] [phone] Visit Information Name: CELE AGUILAR [facility] Number: [id number] Current Date: 08/03/2014 14:15:25 Physicians Attending Provider: TESSY GANNON MD Primary [...] Take Indications/Special Instructions/Comments/Notes for Patient Medication Changes/Routing multivitamin, ( Multivitamins oral tablet) 1 Tablet(s), Oral, once a day Stop Taking the Following Medications: Medication list as of 08-03-14 14:15 Attention: If you have any medications at [...] Electronically Signed By: TESSY GANNON MD Signed On:03-AUG-2014 14:15:22 Your Allergies & Intolerances Substance Reaction Symptoms Category Comments No Known Allergies Drug Your Problem List Problem Status Onset Comments Active 11/27/2013 Your Upcoming Appointments Date Time Location Provider No Appointments found Attention: Contact your local Clinic if further appointment detail needed. Your Goals/Additional instructions: Source: [facility] POWERCHART Document Id: [id number] SIVE GRADER Rebekacellbetina - Tessy Gannon M.D. - 08/03/2014 2:15 PM CST Ambulatory Discharge Medication List [facility] [address] [place], [place] [phone] Visit Information Name: CELE AGUILAR [facility] Number: [id number] Visit Date: 08/03/2014 14:15:24 Attending Provider: TESSY GANNON MD Primary Care Provider: PCP, UNASSIGNED - CELE SHAYELE has been given the following list of medications: Your Medications It is important to take your medications as directed. Use a pill box or chart to help remind you to take your medications. Please let your doctor or nurse know if you have problems taking your medications. Medication/Strength How to Take Indications/Special Instructions/Comments/Notes for Patient Medication Changes/Routing multivitamin, ( Multivitamins oral tablet) 1 Tablet(s), Oral, once a day Stop Taking the Following Medications: Medication list as of 08-03-14 14:15 Attention: If you have any medications at [...] Electronically Signed By: TESSY GANNON MD Signed On:03-AUG-2014 14:15:22 Additional Information: Source: [facility] POWERCHART Document Id: [id number] SIVE GRADER Miscellaneous - Lisa Hernandez, L.P.N. - 08/03/2014 2:04 PM CST Adult Account Manager Employee Benefits Intake/History Adult Account Manager Employee Benefits Intake/History Entered On: 08/03/2014 14:09 ABRASIVE GRADER Performed On: 08/03/2014 14:04 ABRASIVE GRADER by LISA HERNANDEZ Intake Chief Complaint : 35 4/7 wk ob check Systolic Blood Pressure : 116 mmHg Diastolic Blood Pressure : 62 mmHg NIBP Mean : 80 mmHg BP Location : Left upper extremity Blood Pressure Cuff Size : Large Height : 163 cm(Converted to: 5 ft 4 inch(es), 64 inch(es)) Actual Weight : 84.2 kg(Converted to: 185 lb 10 oz) Dosing Weight Clinic : 84.2 kg Clinic BSA : 1.95 Body Mass Index : 31.69 kg/m2 LISA HERNANDEZ - 08/03/2014 14:04 ABRASIVE GRADER General Info Languages : Icelandic, Tristanian Is Patient Female and 13-50 no hysterectomy : No LISA HERNANDEZ - 08/03/2014 14:04 ABRASIVE GRADER Subjective Pain Symptoms : LISA Willett - 08/03/2014 14:04 ABRASIVE GRADER Dependent Habits Tobacco Use/Currently Using : No Exposure to Tobacco Smoke : Patient smokes Smoking Status : Former smoker LISA HERNANDEZ - 08/03/2014 14:04 ABRASIVE GRADER Tobacco Use Grid Type : Cigarettes Cigarette Use Packs/Day : 0.5 LISA HERNANDEZ - 08/03/2014 14:04 ABRASIVE GRADER ID Screen Travel Within Last 21 Days : No Contact with someone with Ebola : No LISA HERNANDEZ - 08/03/2014 14:04 ABRASIVE GRADER Source: [facility] POWERCHART Document Id: [id number] ABRASIVE GRADER!29 SIVE GRADER documented in this encounter Plan of Treatment Not on filedocumented as of this encounter Procedures Procedure Name Priority Date/Time Associated Diagnosis Comme nts HXSTREP GROUP B BY Routine 08/03/2014 3:15 PM Res ults for this PCR ABRASIVE GRADER procedure are i n the results section. documented in this encounter Results HXSTREP GROUP B BY PCR (08/03/2014 3:15 PM ABRASIVE GRADER) [facility] Method Time Signature HXStrep Group POWERCHART B by PCR HXFinal Negative for POWERCHART Group B Strep by PCR. Specimen (Source) Anatomical Collection Method Collection Time Re ceived Time Location / / Volume Laterality Vaginal/Rectum 08/03/2014 3:15 PM ABRASIVE GRADER Tessy Gannon M.D. LAB HISTORICAL ORDERS Performing Organization Address City/State/ZIP Code Phon e Number POWERCHART documented in this encounter Visit Diagnoses Not on filedocumented in this encounter
--- OUTSIDE RECORDS SUMMARY | 2022-05-05 14:49 | XMS_ITS | Encounter Summary ---
:1990 Author Organization [facility] Address [address] [place] [address] Care Team Providers Name Role Phone Unavailable Primary Care Provider Unavailable Encounter Details Date Type Department Care Team Description 10/10/2014 Hospital Encounter [facility]X [facility] Evelyn Deshpande, Sushant AYOUB, C.N.P., M.S.N. Social History Tobacco Use Types Packs/Day Years Used Date Smoking Tobacco: Never Assessed Sex Assigned at Date Recorded Not on file documented as of this encounter Last Filed Vital Signs Vital Sign Reading Time Taken Comments Blood Pressure 98/58 10/10/2014 1:41 PM CDT Pulse - - Temperature - - Respiratory Rate - - Oxygen Saturation - - Inhaled Oxygen Concentration - - Weight - - Height 163 cm (5' 4.17) 10/10/2014 1:41 PM CDT Body Mass Index - - documented in this encounter Progress Notes Evelyn Deshpande, M.S.N. - 10/10/2014 1:35 PM CDT [id number] CHIEF COMPLAINT/REASON FOR VISIT Cele presents for Nexplanon device placement. She recently saw Dr. Shamar Gannon for her 6-week visit. She is interested in the Nexplanon device and did start menstruating October 03, 2014. She started Ortho Cyclen control pills yesterday. She is quite certain she wants to use this type of contraceptive. HISTORY OF PRESENT ILLNESS This 24-year-old female has been counseled regarding various contraceptive options and desires a long-term progesterone contraceptive device. She understands the possibility of spotting that may be persistent and her questions were answered. Informed consent has been obtained. MEDICATIONS Reviewed EMR dated 10/10/2014. ALLERGIES No known drug allergies. VITAL SIGNS Blood pressure 98/58. PHYSICAL EXAMINATION Safe site verification was performed. During this procedure the universal protocol was utilized. Thepatient's identity was confirmed by no less than 2 patient identifiers, correct procedure was verified, correct site was verified and marked as applicable, and a final pause was completed. Patient was placed in the supine position with her left arm at a 90-degree angle to her body. The appropriate area on the upper, inner aspect of the arm was marked and the skin was prepped with Betadine solution. The placement site was anesthetized with 2 mL 1% lidocaine with epinephrine. After adequate anesthesiawas obtained the Nexplanon device was sterilely placed. The insertion site was covered with a Band-Aid and a pressure dressing was applied. Both patient and myself were able to palpate the device following placement. IMPRESSION/REPORT/PLAN Nexplanon contraceptive device placed today. Printed information about the Nexplanon was provided tothe patient along with a card indicating date of placement, date for removal, and the company name and phone number. Post insertion instructions were reviewed. Post insertion signs and symptoms to watch for were discussed. Follow up for next scheduled annual exam time, sooner in Gynecology Department with Nexplanon questions or concerns. The patient was instructed to use a backup method of control for the next week. I did mention that she should be using a backup method of control while on the control pills and should not be relying on that for contraception. She can go ahead and stop her control pills and instead rely on the Nexplanon for contraception after 1 week. Patient questions whether taking both would eliminate the issue of having to use a backup method, and I have told her this would not serve as a backup method. Condoms would be her best option or abstinence. Lynne PryorNEfrain/cristi Electronically Signed By: EVELYN DESHPANDE NP On: 10/12/2014 02:34 PM Source: [facility] MHSDOLBEYNONRADSYS Document Id: [id number] documented in this encounter Miscellaneous Notes Miscellaneous - Evelyn Deshpande, M.S.N. - 10/10/2014 4:06 PM CDT Ambulatory Patient Summary [facility] [address] [facility] [place] [id number] Visit Information Name: CELE AGUILAR [facility] Number: [id number] Current Date: 10/10/2014 16:06:35 Physicians Attending Provider: EVELYN DESHPANDE FUR FARMER Primary Care Provider: PCP, UNASSIGNED - OW CELE AGUILAR has been given the following list of [...] Take Indications/Special Instructions/Comments/Notes for Patient Medication Changes/Routing etonogestrel (Nexplanon 68 mg subcutaneous implant) 1 Each, Subcutaneous, once [facility] [id number] New FLUoxetine (PROzac) 1 tablet, Oral, once a day multivitamin, ( Multivitamins oral tablet) 1 Tablet(s), Oral, once a day norgestimate-ethinyl estradiol (Ortho-Cyclen 0.25 mg-35 mcg oral tablet) 1 Tablet(s), Oral, once a day Stop Taking the Following Medications: Medication list as of 10-10-14 16:06 Attention: If you have any medications at home that are not on this list, DO NOT take them until youcontact your provider for clarification. Give a copy of your medication list to your primary care provider. Update your medication list any time medications or doses are changed and carry your medication list at all times in case of emergency. Electronically Signed By: EVELYN DESHPANDE FUR FARMER Signed On:10-OCT-2014 16:06:14 Your Allergies & Intolerances Substance Reaction Symptoms Category Comments No Known Allergies Drug Your Problem List Problem Status Onset Comments Active 11/27/2013 (C) Section Delivery Active 08/26/2014 09/11/14 Arrest of dilation Your Upcoming Appointments Date Time Location Provider No Appointments found Attention: Contact your local Clinic if further appointment detail needed. Your Goals/Additional instructions: Source: [facility] POWERCHART Document Id: [id number] Miscellaneous - Evelyn Deshpande M.S.N. - 10/10/2014 4:06 PM CDT Ambulatory Discharge Medication List [address] [phone] Visit Information Name: CELE AGUILAR [facility] Number: [id number] Visit Date: 10/10/2014 16:06:34 Attending Provider: EVELYN DESHPANDE NP Primary Care Provider: PCP, UNASSIGNED - LEANA CELE AGUILAR has been given the following list of medications: Your Medications It is important to take your medications as directed. Use a pill box or chart to help remind you to take your medications. Please let your doctor or nurse know if you have problems taking your medications. Medication/Strength How to Take Indications/Special Instructions/Comments/Notes for Patient Medication Changes/Routing etonogestrel (Nexplanon 68 mg subcutaneous implant) 1 Each, Subcutaneous, once [facility] [id number] New FLUoxetine (PROzac) 1 tablet, Oral, once a day multivitamin, ( Multivitamins oral tablet) 1 Tablet(s), Oral, once a day norgestimate-ethinyl estradiol (Ortho-Cyclen 0.25 mg-35 mcg oral tablet) 1 Tablet(s), Oral, once a day Stop Taking the Following Medications: Medication list as of 10-10-14 16:06 Attention: If you have any medications at home that are not on this list, DO NOT take them until youcontact your provider for clarification. Give a copy of your medication list to your primary care provider. Update your medication list any time medications or doses are changed and carry your medication list at all times in case of emergency. Electronically Signed By: EVELYN DESHPANDE NP Signed On:10-OCT-2014 16:06:14 Additional Information: Source: [facility] [employer] MediaCHART Document Id: [id number] Miscellaneous - Jailyn Kinsey LLupisP.N. - 10/10/2014 1:41 PM CDT Adult Curing Room Worker Intake/History Adult Curing Room Worker Intake/History Entered On: 10/10/2014 13:43 CDT Performed On: 10/10/2014 13:41 CDT by JAILYN KINSEY Intake Chief Complaint : Nexplanon LMP Date : 10/03/14 Ambulatory Intake Additional Information : Pt states bottle feeding Baby born [birth year] Systolic Blood Pressure : 98 mmHg Diastolic Blood Pressure : 58 mmHg NIBP Mean : 71 mmHg BP Location : Left upper extremity Blood Pressure Cuff Size : Regular Height : 163 cm(Converted to: 5 ft 4 inch(es), 64 inch(es)) JAILYN KINSEY - 10/10/2014 13:41 CDT General Info Languages : Mongolian, Nepalese Is Patient Female and 13-50 no hysterectomy : Yes Status : Patient denies Are you ? : No JAILYN KINSEY - 10/10/2014 13:41 CDT Subjective Pain Symptoms : No JAILYN KINSEY - 10/10/2014 13:41 CDT Dependent Habits Tobacco Use/Currently Using : Yes Exposure to Tobacco Smoke : Patient smokes Smoking Status : Current every day smoker JAILYN KINSEY - 10/10/2014 13:41 CDT Tobacco Use Grid Type : Cigarettes Cigarette Use Packs/Day : 0.5 JAILYN KINSEY - 10/10/2014 13:41 CDT ID Screen Travel Within Last 21 Days : No Contact with someone with Ebola : No JAILYN KINSEY - 10/10/2014 13:41 CDT [facility] POWER[facility] Document Id: [id number] CDT!29 documented in this encounter Plan of Treatment Not on filedocumented as of this encounter Visit Diagnoses Not on filedocumented in this encounter
--- OUTSIDE RECORDS SUMMARY | 2022-05-05 14:49 | XMS_ITS | Encounter Summary ---
:1990 Author Organization [facility] Address [address] [place] [address] Care Team Providers Name Role Phone Unavailable Primary Care Provider Unavailable Encounter Details Date Type Department Care Team Description 01/27/2014 Hospital Encounter HX [facility] Mercy Desai M.D. [address] [place], [place] [phone] (Wo rk) Social History [...] - - Height 163 cm (5' 4.17) 01/27/2014 10:22 AM CDT Body Mass Index - - documented in this encounter Plan of Treatment Not on filedocumented as of this encounter Procedures Procedure Name Priority Date/Time Associated Diagnosis Comme nts US OB TRANSVAGINAL Routine 01/27/2014 10:34 AM Re sults for this CDT procedure are i n the results section. documented in this encounter Results US OB Transvaginal (01/27/2014 10:34 AM CDT) Anatomical Region Laterality Modality Ultrasound Specimen (Source) Anatomical Collection Method Collection Time Re ceived Time Location / / Volume Laterality 01/27/2014 10:34 AM CDT Addenda Addendum by Provider, Kay Sims 01/27/2014 10:34 AM CDT RAD^^^OW US OB Transvaginal 01/27/2014 10:34:46 Impressions 01/27/2014 6:00 PM CDT 1. Single Viable Intrauterine with TAMY of ??September 03, 2014, inconsistent with menstrual dates. In general, it is reasonable to use the sonographically derived TAMY if it differs from that calculated using the last menstrual period (LMP) by more than seven days in the fir st trimester. [facility] [place] ASSOCIATE OF SCIENCE IN NURSING Dept. [phone] Narrative 01/27/2014 6:00 PM CDT EXAM: US OB Transvaginal INDICATION: Dates REFERRING PHYSICIAN: Jagdeep COMPARISON: None LMP: November 20, 2013 TAMY by LMP: August 27, 2014 : 9 PARA: 5 NUMBER: One CHORIONICITY: N/A CARDIAC ACTIVITY: Yes HEART RATE: 170 beats per minute. GESTATIONAL SAC = N/A ??cm = N/A weeks a nd N/A days. Gestational sac is measured only if marshall n rump length (CRL) is not able to be determined. Multiple measurements of the CRL reveal an average ultrasound age of 8 weeks and 5 days. ??See 'IMPRESSION' b elow for ultrasound calculation of Estimated Date of Deliver y (TAMY). RIGHT OVARY: ??Appears normal. LEFT OVARY: ??Appears normal. UTERUS: Appears within normal limits. UTERINE POSITION: Anteverted. CUL DE SAC: Normal. ADNEXA: Visually normal, no adnexal mass es detected. ADVISOR TO COMMAND IN COMBAT: Karon Kenyon RDMS. Procedure Note Shamar Gannon M.D. / Provider, Funmilayo blevins M.D. - 10/18/2016 EXAM: US OB Transvaginal INDICATION: Dates REFERRING PHYSICIAN: Jagdeep COMPARISON: None LMP: November 20, 2013 TAMY by LMP: August 27, 2014 : 9 PARA: 5 NUMBER: One CHORIONICITY: N/A CARDIAC ACTIVITY: Yes HEART RATE: 170 beats per minute. GESTATIONAL SAC = N/A cm = N/A weeks and N/A days. Gestational sac is measured only if marshall n rump length (CRL) is not able to be determined. Multiple measurements of the CRL reveal an average ultrasound age of 8 weeks and 5 days. See 'IMPRESSION' bel ow for ultrasound calculation of Estimated Date of Deliver y (TAMY). RIGHT OVARY: Appears normal. LEFT OVARY: Appears normal. UTERUS: Appears within normal limits. UTERINE POSITION: Anteverted. CUL DE SAC: Normal. ADNEXA: Visually normal, no adnexal mass es detected. ADVISOR TO COMMAND IN COMBAT: Karon Kenyon RDMS. IMPRESSION: 1. Single Viable Intrauterine with TAMY of September 03, 2014, inconsistent with menstrual dates. In general, it is reasonable to use the sonographically derived TAMY if it differs from that calculated using the last menstrual period (LMP) by more than seven days in the fir st trimester. [facility] [place] ASSOCIATE OF SCIENCE IN NURSING Dept. [phone] Historical Provider IMG OB US PROCEDURES documented in this encounter Visit Diagnoses Not on filedocumented in this encounter
--- OUTSIDE RECORDS SUMMARY | 2022-05-05 14:49 | XMS_ITS | Encounter Summary ---
:1990 Author Organization [facility] Address [address] [place] [address] Care Team Providers Name Role Phone Unavailable Primary Care Provider Unavailable Encounter Details Date Type Department Care Team Description 08/31/2014 Hospital Encounter HX NO MAPPING Dylan Jorgensen M.D. [address] [place], [place] [phone] (Wo rk) Social History [...] - - Height 163 cm (5' 4.17) 08/31/2014 6:53 PM CDT Body Mass Index - - documented in this encounter Plan of Treatment Not on filedocumented as of this encounter Visit Diagnoses Not on filedocumented in this encounter
--- OUTSIDE RECORDS SUMMARY | 2022-05-05 14:49 | XMS_ITS | Encounter Summary ---
:1990 Author Organization [facility] Address [address] [place] [address] Care Team Providers Name Role Phone Unavailable Primary Care Provider Unavailable Encounter Details Date Type Department Care Team Description 01/24/2013 Hospital Encounter HX [facility] Vicky Hopkins, P.A.-CLupis [address] [place], [place] [address] (Wo rk) Social History Tobacco Use Types Packs/Day Years Used Date Smoking Tobacco: Never Assessed Sex Assigned at Date Recorded Not on file documented as of this encounter Last Filed Vital Signs Vital Sign Reading Time Taken Comments Blood Pressure 102/76 01/24/2013 12:03 PM CDT Pulse 104 01/24/2013 12:03 PM CDT Temperature - - Respiratory Rate - - Oxygen Saturation - - Inhaled Oxygen Concentration - - Weight 67 kg (147 lb 11.3 oz) 01/24/2013 12:03 PM CDT Height - - Body Mass Index 25.22 02/12/2012 9:30 PM CDT documented in this encounter Progress Notes Quiana Hopkins PLupisA.-C. - 01/24/2013 11:25 AM CDT [id number] CHIEF COMPLAINT/REASON FOR VISIT 1. Constipation. 2. Urinary frequency. HISTORY OF PRESENT ILLNESS Patient states that she has been constipated since . She states that she does have an ongoing problem with constipation and uses fiber therapy approximately once every 2 months for this. On Thursday she did the fiber therapy. She also tried a laxative and did a suppository this morning but was unable to retain it for more than 4 minutes. She states that she has not had any results and she continues to be constipated. She drinks probably 2 to 3 bottles of water a day. She states that she has not had any vomiting but she has had nausea. Her fiance who accompanies her said that on occasion shehas felt warm like she has a fever but she has never taken her temperature. She has also had some upper respiratory symptoms. She is not short of breath. She has some chest pain that comes and goes. Has been evaluated previously and has not changed. She has also had increased frequency of urination without burning with urination. She has had a history of at least 1 urinary tract infection. CURRENT MEDICATIONS Reviewed. ALLERGIES Reviewed. VITAL SIGNS Reviewed, please see chart. Smoking use - yes. PHYSICAL EXAMINATION GENERAL: On physical exam is an alert, oriented 22-year-old in no acute distress. HEAD: Is normocephalic, atraumatic. ENT: Examined negative. NECK: Supple without lymphadenopathy. HEART: S1, S2. No S3. LUNGS: Clear to auscultation. ABDOMEN: Soft, some tenderness to palpation epigastric and left-sided abdomen. Bowel sounds are active. No guarding or rebound. No organomegaly is noted. IMPRESSION/REPORT/PLAN 1. Patient's urine was tested and is negative for urinary tract infection. 2. Constipation. I spent probably 10 to 15 minutes discussing the issue of constipation, the fact that she has had itbefore. Her diet does not contain a lot of fruits, vegetables or fluids. She was counseled extensively regarding this. For treatment she will continue to use the suppository or mag citrate. She will follow up if symptoms would not resolve and we did talk again that she is going to have to change her diet. Pedro Dyer/marely Electronically Signed By: QUIANA HOPKINS PA-C On: 02/12/2013 09:39 AM Source: [facility] MHSDOLBEYNONRADSYS Document Id: [id number] documented in this encounter Miscellaneous Notes Miscellaneous - Asmita Waller - 03/31/2014 3:00 PM CDT Health Maintenance Reminder [address] [address] CELE AGUILAR [address] [place] [address] Date of : 1990 03/31/2014 Dear CELE AGUILAR , Guerrero theodore a re a b o u t you r h e a l t h a n d that s why we want to remind you about the following preventive services that are due, according to our records: Immunization : Flu , Yearly (Vaccine to prevent Influenza ) Please contact your local clinic or via Patient Online Services to schedule an appointment. If you have already received these services, or believe this information is not correct, please let us know.Before your appointment you may want to check with y o ur insurance carrier to determine your coverage of these services. Patient Online Services and our Patient shelia enables you to: -View portions of your medical record (such as immunizations and lab reports) -Request an appointment or medication refill -R eview your appointment schedule -Message your Provider Go to [email or web address] to create a Patient Online Services account. Thank you for trusting your care to [facility]. Sincerely, Your Health[facility] are Team Source: [facility] POWERCHART Document Id: [id number] Electronically signed by Conversion, [facility] Used Car Manager [id number] at 11/05/2016 4:01 AM CDT Miscellaneous - Quiana Hopkins P.A.-C. - 01/24/2013 12:34 PM CDT Ambulatory Depart Summary [facility] - [address] [address] Visit Information Name: CELE AGUILAR [facility] Number: [id number] Visit Date: 01/24/2013 12:34:56 Attending Provider: UNKNOWN1, PROVIDER Primary Care Provider: CELE AGUILAR has been given the following list of medications: Your Medications It is important to take your medications as directed. Use a pill box or chart to help remind you to take your medications. Please let your doctor or nurse know if you have problems taking your medications. Medication/Strength Dose Route Frequency Indications/Special Instructions/Comments/Notes *ibuprofen (Motrin 600 mg oral tablet) 600 mg Oral three times a day Take with food *medroxyPROGESTERone (Depo-Provera Contraceptive) 150 mg Intramuscular once *calcium-vitamin D (calcium (as carbonate)-vitamin D 500 mg-400 intl units oral tablet, chewable) 1 tab(s) Chewed two times a day * You have let us know that you are not taking this medication as listed. Please talk with your primary care provider or the health care provider who prescribed the medication as soon as possible. Attention: If you have any medications at home that are not on this list, DO NOT take them until youcontact your provider for clarification. Additional Information: Source: [facility] POWERCHART Document Id: [id number] Miscellaneous - Quiana Hopkins P.A.-C. - 01/24/2013 12:34 PM CDT [place]ulatory [place] [address] Visit Information Name: CELE AGUILAR [facility] Number: [id number] Current Date: 01/24/2013 12:34:56 Physicians Attending Provider: UNKNOWN1, PROVIDER Primary Care Provider: Your Medications Here is a list of your medications. It is important to take your medications as directed. Use a pillbox or chart to help remind you to take your medications. Please let your doctor or nurse know if you have problems taking your medications. Medication/Strength Dose Route Frequency Indications/Special Instructions/Comments/Notes *ibuprofen (Motrin 600 mg oral tablet) 600 mg Oral three times a day Take with food *medroxyPROGESTERone (Depo-Provera Contraceptive) 150 mg Intramuscular once *calcium-vitamin D (calcium (as carbonate)-vitamin D 500 mg-400 intl units oral tablet, chewable) 1 tab(s) Chewed two times a day * You have let us know that you are not taking this medication as listed. Please talk with your primary care provider or the health care provider who prescribed the medication as soon as possible. Attention: If you have any medications at home that are not on this list, DO NOT take them until youcontact your provider for clarification. 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 kidney infection and has constipation Temperature Core : 37.1 DegC(Converted to: 98.8 DegF) Peripheral Pulse Rate : 104 /min (HI) Systolic Blood Pressure : 102 mmHg Diastolic Blood Pressure : 76 mmHg NIBP Mean : 85 mmHg BP Location : Right upper extremity Blood Pressure Cuff Size : Regular Actual Weight : 67 kg(Converted to: 147 lb 11 oz) Dosing Weight Clinic : 67 kg ANN SWEENEY - 01/24/2013 12:03 CDT General Info Information Given By : Patient Languages : Nepalese, Namibian ANN SWEENEY - 01/24/2013 12:03 CDT Subjective Pain Symptoms : No ANN SWEENEY - 01/24/2013 12:03 CDT Dependent Habits Tobacco Use/Currently Using : Yes Exposure to Tobacco Smoke : Patient smokes Smoking Status : Current every day smoker ANN SWEENEY - 01/24/2013 12:03 CDT Tobacco Use Grid Type : Cigarettes Cigarette Use Packs/Day : 0.5 ANN SWEENEY 01/24/2013 12:03 CDT [facility] Document Id: [id number] CDT!25 documented in this encounter Plan of Treatment Not on filedocumented as of this encounter Procedures Procedure Name Priority Date/Time Associated Diagnosis Comme nts URINALYSIS, ROUTINE Routine 01/24/2013 11:50 AM R esults for this CDT procedure are i n the results section. documented in this encounter Results Urinalysis, Routine (01/24/2013 11:50 AM CDT) [facility] gist Method Time Signature Source Clean Void POWERCHART Urine HXUr Color Light-Yello POWERCHART w Appearance Clear POWERCHART Specific 1.006 1.003 - POWERCHART [place]akeslee, POCT, U 1.035 pH, POCT, Urine 6.0 5.0 - 9.0 POWERCHART Protein, Ur, Dip Negative Negative POWERCHART Glucose Negative Negative POWERCHART Ketones, QL(U) Negative Negative POWERCHART HXBILIRUBIN Negative Negative POWERCHART HXBLOOD Negative Negative POWERCHART Leukocyte Negative Negative POWERCHART Esterase HXNITRITE Negative Negative POWERCHART Urobilinogen Normal 1.0 MGDL POWERCHART Specimen (Source) Anatomical Collection Method Collection Time Re ceived Time Location / / Volume Laterality Urine 01/24/2013 11:50 AM CDT Quiana Hopkins P.A.-C. LAB URINE ORDERABLES Performing Organization Address City/State/ZIP Code Phon e Number POWERCHART documented in this encounter Visit Diagnoses Not on filedocumented in this encounter
--- OUTSIDE RECORDS SUMMARY | 2022-05-05 14:49 | XMS_ITS | Encounter Summary ---
:1990 Author Organization [facility] Address [address] [place] [address] Care Team Providers Name Role Phone Unavailable Primary Care Provider Unavailable Encounter Details Date Type Department Care Team Description 08/17/2014 Hospital Encounter HX [facility] Wilson M.D. [address] [place], [place] [phone] (Wo rk) Social History Tobacco Use Types Packs/Day Years Used Date Smoking Tobacco: Never Assessed Sex Assigned at Date Recorded Not on file documented as of this encounter Last Filed Vital Signs Vital Sign Reading Time Taken Comments Blood Pressure 120/68 08/17/2014 3:19 PM CDT Pulse - - Temperature - - Respiratory Rate - - Oxygen Saturation - - Inhaled Oxygen Concentration - - Weight 86 kg (189 lb 9.5 oz) 08/17/2014 3:19 PM CDT Height 163 cm (5' 4.17) 08/17/2014 3:19 PM CDT Body Mass Index 32.37 08/17/2014 3:19 PM CDT documented in this encounter Progress Notes Tessy Gannon M.D. - 08/17/2014 3:18 PM CDT CHIEF COMPLAINT: care, third trimester. [...] Cervical exam was performed, results are 1-2 cm dilation, 50% effaced IMPRESSION/REPORT/PLAN: Third trimester . Recommendations: Follow up visit is scheduled in one week. kick counts is an important home monitor of well being. Report to labor and delivery (which is staffed 24 hours a day) when regular, frequent, painful contractions are presen. Report also if vaginal bleeding nor rupture of membranes occurs (as evidenced by a gush of clear fluid followed by continued leakage). Tessy Morocho CC: Labor and Delivery Electronically Signed By: TESSY GANNON MD On: 08/17/2014 03:27 PM Source: [facility] POWERCHART Document Id: [id number] documented in this encounter Nursing Notes Tessy Gannon M.D. - 08/17/2014 3:18 PM CDT Ambulatory Patient Education The following Patient Education Materials have been given to the patient: Patient Education Materials: Channel Man Anesthesia Options for Labor Channel Man Anesthesia Options for Labor Anesthesia is a type of medication to prevent pain. It is often used in labor. It may numb only one region of your body. This is called regional anesthesia. Or it may let you sleep during surgery. Thisis called general anesthesia. This type of medication is given by a trained specialist. When possible, regional anesthesia will be used. This is so you can be awake during your babys . The type ofanesthetic you have may depend on the hospital guidelines. Regional Anesthesia Regional anesthesia may be used to numb your lower body for a vaginal or . It does notgo into your bloodstream. This means that little or none of it will reach your baby. There are two kinds: ?? Epidural. This is most often given while you sit up or lie on your side. A needle with a flexibletube (catheter) is put in your lower back. The needle is then removed. The anesthetic is sent through the catheter. A pump may be attached. This gives you a constant level of anesthetic. An epidural often only partly affects muscle control. This means you should still be able to push for a vaginal . ?? Spinal. This is most often given in one dose right before delivery. It acts fast. You may sit up or lie down when it is injected. It may affect muscle control in your lower body. This includes the ability to push. General Anesthesia General anesthesia lets you sleep and keeps you free of pain during surgery. It may be used for a . It may be given as an injection. It may be given as an inhaled gas. Or it may be given as both. Delivery often occurs before the medication has reached the baby. ?? [id number] [place] [address]. All rights reserved. This information is not intended as a substitute for professional medical care. Always follow your healthcare professional's instructions. This document has images extracted. Please consider using [employer]IMPA[employer] for all your patient education needs. Source: [facility] POWERCHART Document Id: [id number] documented in this encounter Miscellaneous Notes Miscellaneous - Lisa Hernandez, L.P.N. 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 Intake/History Entered On: 08/17/2014 15:21 CDT Performed On: 08/17/2014 15:19 CDT by LISA HERNANDEZ Intake Chief Complaint : ob check Systolic Blood Pressure : 120 mmHg Diastolic Blood Pressure : 68 mmHg NIBP Mean : 85 mmHg BP Location : Left upper extremity Blood Pressure Cuff Size : Large Height : 163 cm(Converted to: 5 ft 4 inch(es), 64 inch(es)) Actual Weight : 86 kg(Converted to: 189 lb 10 oz) Dosing Weight Clinic : 86 kg Clinic BSA : 1.97 Body Mass Index : 32.37 kg/m2 LISA HERNANDEZ D - 08/17/2014 15:19 CDT General Info Languages : Turkish, Turkish Is Patient Female and 13-50 no hysterectomy : No LISA HERNANDEZ - 08/17/2014 15:19 CDT Subjective Pain Symptoms : No LISA HERNANDEZ - 08/17/2014 15:19 CDT Dependent Habits Tobacco Use/Currently Using : Yes Exposure to Tobacco Smoke : Patient smokes Smoking Status : Current every day smoker LISA HERNANDEZ - 08/17/2014 15:19 CDT Tobacco Use Grid Type : Cigarettes Cigarette Use Packs/Day : 0.5 LISA HERNANDEZ - 08/17/2014 15:19 CDT ID Screen Travel Within Last 21 Days : No Contact with someone with Ebola : No LISA HERNANDEZ - 08/17/2014 15:19 CDT Source: [facility] Document Id: [id number] CDT!29 Miscellaneous - Tessy Gannon M.D. - 08/17/2014 3:18 PM CDT Ambulatory Patient Summary [address] [id number] Visit Information Name: CELE AGUILAR [facility] Number: [id number] Current Date: 08/17/2014 15:18:28 Physicians Attending Provider: TESSY GANNON MD Primary Care Provider: PCP, UNASSIGNED - OW [...] tablet) 1 Tablet(s), Oral, once a day terconazole topical (Terazol 7 vaginal cream) 1 shelia, Vaginal, once a day (at bedtime) x 7 day(s) Stop Taking the Following Medications: Medication list as of 08-17-14 15:18 Attention: If you have any medications at [...] Electronically Signed By: TESSY GANNON MD Signed On:17-AUG-2014 15:18:14 Your Allergies & Intolerances Substance Reaction Symptoms Category Comments No Known Allergies Drug Your Problem List Problem Status Onset Comments Active 11/27/2013 Your Upcoming Appointments Date Time Location Provider 08/25/2014 14:15 [facility]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 Anesthesia Options for Labor Anesthesia is a type of medication to prevent pain. It is often used in labor. It may numb only one region of your body. This is called regional anesthesia. Or it may let you sleep during surgery. Thisis called general anesthesia. This type of medication is given by a trained specialist. When possible, regional anesthesia will be used. This is so you can be awake during your babys . The type ofanesthetic you have may depend on the hospital guidelines. Regional Anesthesia Regional anesthesia may be used to numb your lower body for a vaginal or . It does notgo into your bloodstream. This means that little or none of it will reach your baby. There are two kinds: ?? Epidural. This is most often given while you sit up or lie on your side. A needle with a flexibletube (catheter) is put in your lower back. The needle is then removed. The anesthetic is sent through the catheter. A pump may be attached. This gives you a constant level of anesthetic. An epidural often only partly affects muscle control. This means you should still be able to push for a vaginal . ?? Spinal. This is most often given in one dose right before delivery. It acts fast. You may sit up or lie down when it is injected. It may affect muscle control in your lower body. This includes the ability to push. General Anesthesia General anesthesia lets you sleep and keeps you free of pain during surgery. It may be used for a . It may be given as an injection. It may be given as an inhaled gas. Or it may be given as both. Delivery often occurs before the medication has reached the baby. ?? [id number] [facility], [address] [place] [address]. All rights reserved. This information is not intended as a substitute for professional medical care. Always follow your healthcare professional's instructions. Your Goals/Additional instructions: This document has images extracted. Please consider using X2IMPACT for all your patient education needs. Source: [facility] POWERCHART Document Id: [id number] Miscellaneous - Tessy Gannon M.D. - 08/17/2014 3:18 PM CDT Ambulatory Discharge Medication List [address] [id number] Visit Information Name: CELE AGUILAR [facility] Number: [id number] Visit Date: 08/17/2014 15:18:27 Attending Provider: TESSY GANNON MD Primary Care [...] tablet) 1 Tablet(s), Oral, once a day terconazole topical (Terazol 7 vaginal cream) 1 shelia, Vaginal, once a day (at bedtime) x 7 day(s) Stop Taking the Following Medications: Medication list as of 08-17-14 15:18 Attention: If you have any medications at [...] Electronically Signed By: TESSY GANNON MD Signed On:17-AUG-2014 15:18:14 Additional Information: Source: [facility] POWERCHART Document Id: [id number] documented in this encounter Plan of Treatment Not on filedocumented as of this encounter Visit Diagnoses Not on filedocumented in this encounter
--- OUTSIDE RECORDS SUMMARY | 2022-05-05 14:49 | XMS_ITS | Encounter Summary ---
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 [address] [facility] [phone] [place], [place] (Work) [phone] Social History Tobacco Use Types Packs/Day Years Used Date Smoking Tobacco: Every Day Sex Assigned at Date Recorded Not on file documented as of this encounter Plan of Treatment Scheduled Orders Name Type Priority Associated Diagnoses Order S chedule OCC Drug screening Procedures Routine Drug Screen Ordered: 08/02/2021 documented as of this encounter Visit Diagnoses Diagnosis Drug Screen - Primary documented in this encounter Additional Health Concerns Assessment Noted Time PHQ-9 Depression Total Score: 6 11/12/2015 4:00 PM CDT documented as of this encounter
--- OUTSIDE RECORDS SUMMARY | 2022-05-05 14:49 | XMS_ITS | Encounter Summary ---
:1990 [address] Organization [facility] Address [address] [place] [address] Care Team Providers Name Role Phone Unavailable Primary Care Provider Unavailable Encounter Details Date Type Department Care Team Description 09/11/2014 Hospital Encounter HX [facility] Evelyn Deshpande, Sushant AYOUB, C.N.P., M.S.N. Social History Tobacco Use Types Packs/Day Years Used Date Smoking Tobacco: Never Assessed Sex Assigned at Date Recorded Not on file documented as of this encounter Last Filed Vital Signs Vital Sign Reading Time Taken Comments Blood Pressure 108/76 09/11/2014 4:04 PM CDT Pulse 68 09/11/2014 4:04 PM CDT Temperature - - Respiratory Rate - - Oxygen Saturation - - Inhaled Oxygen Concentration - - Weight - - Height 163 cm (5' 4.17) 09/11/2014 4:04 PM CDT Body Mass Index - - documented in this encounter Progress Notes Evelyn Deshpande, M.S.N. - 09/11/2014 3:56 PM CDT [id number] CHIEF COMPLAINT/REASON FOR VISIT Cele is seen for a 2-week postoperative visit. She underwent a delivery for arrest of dilation. SURGEON Murary Law MD HISTORY OF PRESENT ILLNESS She is bottle feeding. Bowel function is normal. Bladder/voiding is normal. Vaginal flow is expectedat this time post . Pain is mild. Using ibuprofen for pain as needed. MEDICATIONS Reviewed EMR dated 09/11/2014. ALLERGIES No known drug allergies. Tdap is up to date. Family members encouraged to be vaccinated if needed. VITAL SIGNS Temp 37 celsius, heart rate 68, blood pressure 108/76 left arm, regular cuff. PHYSICAL EXAMINATION A 23-year-old female in no acute distress. Incision is healing well with no signs of infection or separation. She does have a staple that is protruding from the left side of her incision. This was easily removed. The incision is otherwise, again, healing very well. Involution of uterus is appropriate. IMPRESSION/REPORT/PLAN Reviewed lifting restrictions of 20 pounds or less and vaginal rest until seen back at 6-week visit.Gradually increase activity as tolerated. Follow up prior to 6-week appointment with Dr. Gannon for any questions or concerns, continuing vitamins until that time. Contraception: Does have someinterest in the Mirena intrauterine device. She is given printed information regarding the various types of control and a printed brochure on Mirena as well. We will have her discuss this furtherat her 6-week visit with Dr. Gannon. Stefan Pryor/cristi Electronically Signed By: EVELYN DESHPANDE NP On: 09/13/2014 11:44 AM Source: [facility] MHSDOLBEYNONRADSYS Document Id: [id number] documented in this encounter Miscellaneous Notes Miscellaneous - Evelyn Deshpande, M.S.N. - 09/11/2014 5:06 PM CDT Ambulatory Discharge Medication List [address] [id number] Visit Information Name: CELE AGUILARELE [facility] Number: [id number] Visit Date: 09/11/2014 17:06:53 Attending Provider: EVELYN DESHPANDE NP Primary Care Provider: PCP, UNASSIGNED - CELE [...] Take Indications/Special Instructions/Comments/Notes for Patient Medication Changes/Routing FLUoxetine (PROzac) 1 tablet, Oral, once a day ibuprofen (ibuprofen 600 mg oral tablet) 1 Tablet(s), Oral, every 6 hours as needed for Pain multivitamin, ( Multivitamins oral tablet) 1 Tablet(s), Oral, once a day Stop Taking the Following Medications: Medication list as of 09-11-14 17:06 Attention: If you have any medications at [...] Electronically Signed By: EVELYN DESHPANDE NP Signed On:11-SEP-2014 17:06:37 Additional Information: Source: [facility] POWERCHART Document Id: [id number] Miscellaneous - Evelyn Deshpande, M.S.N. - 09/11/2014 5:06 PM CDT Ambulatory Patient Summary [address] [id number] Visit Information Name: AGUILAR, CELE OSVALDO [facility] Number: [id number] Current Date: 09/11/2014 17:06:53 Physicians Attending Provider: EVELYN DESHPANDE NP Primary Care Provider: PCP, UNASSIGNED - [facility] CELE AGUILARELE has been given the following list of [...] Take Indications/Special Instructions/Comments/Notes for Patient Medication Changes/Routing FLUoxetine (PROzac) 1 tablet, Oral, once a day ibuprofen (ibuprofen 600 mg oral tablet) 1 Tablet(s), Oral, every 6 hours as needed for Pain multivitamin, ( Multivitamins oral tablet) 1 Tablet(s), Oral, once a day Stop Taking the Following Medications: Medication list as of 09-11-14 17:06 Attention: If you have any medications at [...] Electronically Signed By: EVELYN DESHPANDE NP Signed On:11-SEP-2014 17:06:37 Your Allergies & Intolerances Substance Reaction Symptoms Category Comments No Known Allergies Drug Your Problem List Problem Status Onset Comments Active 11/27/2013 (C) Section Delivery Active 08/26/2014 09/11/14 Arrest of dilation Your Upcoming Appointments Date Time Location Provider 09/13[facility]2014 13[facility] 10/06/2014 10:45 [facility] Jagdeep LOYA, Shamar Canchola Attention: Contact your local Clinic if further appointment detail needed. Your Goals/Additional instructions: Source: [facility] POWERCHART Document Id: [id number] Miscellaneous - Luisito Kinsey LLupisPLupisN. 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 Intake/History Entered On: 09/11/2014 16:07 CDT Performed On: 09/11/2014 16:04 CDT by LUISITO KINSEY Intake Chief Complaint : 2 week post op Ambulatory Intake Additional Information : Pt states bottle feeding; bleeding still Temperature Oral : 37.0 DegC(Converted to: 98.6 DegF) Peripheral Pulse Rate : 68 /min Heart Rhythm : Regular Systolic Blood Pressure : 108 mmHg Diastolic Blood Pressure : 76 mmHg NIBP Mean : 87 mmHg BP Location : Left upper extremity Blood Pressure Cuff Size : Regular Height : 163 cm(Converted to: 5 ft 4 inch(es), 64 inch(es)) LUISITO KINSEY - 09/11/2014 16:04 CDT General Info Languages : Azeri, Irish Is Patient Female and 13-50 no hysterectomy : Yes Status : Patient denies Are you ? : No TIOLUISITO MYLES - 09/11/2014 16:04 CDT Subjective Pain Symptoms : Yes TIOLUISITO MYLES - 09/11/2014 16:04 CDT Pain Scale Pain Scale Verbal 0-10 : Open LUISITO KINSEY - 09/11/2014 16:04 CDT Pain Pain Assessment Grid Pain 1 Location : Abdomen (Comment: Sensitive [LUISITO KINSEY - 09/11/2014 16:04 CDT] ) Intensity : 1 LUISITO KINSEY - 09/11/2014 16:04 CDT Dependent Habits Tobacco Use/Currently Using : Yes Exposure to Tobacco Smoke : Patient smokes Smoking Status : Current every day smoker LUISITO KINSEY - 09/11/2014 16:04 CDT Tobacco Use Grid Type : Cigarettes Cigarette Use Packs/Day : 0.5 LUISITO KINSEY - 09/11/2014 16:04 CDT ID Screen Travel Within Last 21 Days : No Contact with someone with Ebola : No LUISITO KINSEY - 09/11/2014 16:04 CDT Source: [place] Document Id: [id number]!38 documented in this encounter Plan of Treatment Not on filedocumented as of this encounter Visit Diagnoses Not on filedocumented in this encounter
--- OUTSIDE RECORDS SUMMARY | 2022-05-05 14:49 | XMS_ITS | Encounter Summary ---
:1990 Author Organization [facility] Address [address] [place] [address] Care Team Providers Name Role Phone Unavailable Primary Care Provider Unavailable Encounter Details Date Type Department Care Team Description 08/31/2014 Hospital Encounter HX NO MAPPING Dylan Jorgensen M.D. [address] [place], [place] [phone] (Wo rk) Social History Tobacco Use Types Packs/Day Years Used Date Smoking Tobacco: Never Assessed Sex Assigned at Date Recorded Not on file documented as of this encounter Plan of Treatment Not on filedocumented as of this encounter Visit Diagnoses Not on filedocumented in this encounter
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
--- OUTSIDE RECORDS SUMMARY | 2022-05-05 14:49 | XMS_ITS | Encounter Summary ---
:1990 Author Organization [facility] Address [address] [place] [address] Care Team Providers Name Role Phone Unavailable Primary Care Provider Unavailable Encounter Details Date Type Department Care Team Description 03/14/2014 Hospital Encounter HX [facility] Shamar Gannon M.D. [address] [place] [phone] (Wo rk) Social History Tobacco Use Types Packs/Day Years Used Date Smoking Tobacco: Never Assessed Sex Assigned at Date Recorded Not on file documented as of this encounter Plan of Treatment Not on filedocumented as of this encounter Visit Diagnoses Not on filedocumented in this encounter
--- OUTSIDE RECORDS SUMMARY | 2022-05-05 14:49 | XMS_ITS | Encounter Summary ---
:1990 Author Organization [facility] Address [address] [place] [address] Care Team Providers Name Role Phone Unavailable Primary Care Provider Unavailable Encounter Details Date Type Department Care Team Description 02/19/2012 Hospital Encounter HX [facility] Branden Whitney, C.N.P., R.N. Social History Tobacco Use Types Packs/Day Years Used Date Smoking Tobacco: Never Assessed Sex Assigned at Date Recorded Not on file documented as of this encounter Miscellaneous Notes Miscellaneous - Angle Whitney, C.N.P. - 02/24/2012 12:00 AM CDT [id number] CELE AGUILAR [birth year] [facility] [address] [id number] Dear Cele: I have been informed that your ultrasound of the breast mass returned with benign findings. It was thought, in all probability, that it was a fibroadenoma. This is a benign finding as we had previouslydiscussed. However, I would like you to continue to do monthly self-breast exams. Being aware of thesize of the area now and should it increase, we could certainly reevaluate. You also will be reevaluated at the time of your annual exam which could be scheduled at any time. Cele, if you have any questions regarding your visit, the ultrasound, or the plan please feel free to call me. Sincerely, Angle Whitney, Eda, C.N.P. Department of Obstetrics & Gynecology at Electronically Signed By: ANGLE WHITNEY RN, CNP On: 02/25/2012 04:12 PM Modified by and Electronically Signed by: ANGLE WHITNEY RN, CNP On: 02/25/2012 04:12 PM Source: [facility] [email or web address] Document Id: [id number] Miscellaneous - Angle Whitney C.NTeto. - 02/19/2012 2:54 PM CDT Results Notification From: ANGLE WHITNEY RN BOOM MAN To: STEVIE Whitney Nurse Sent: 02/19/2012 14:54:33 CDT ! Show up: 02/19/2012 19:54:33 [facility] Subject: Results Notification Actions: Note to Nurse Source: [facility] POWERCHART Document Id: [id number] Electronically signed by Conversion, [facility] Clinical Laboratory Medical Director [id number] at 11/08/2016 5:27 PM CDT documented in this encounter Plan of Treatment Not on filedocumented as of this encounter Procedures Procedure Name Priority Date/Time Associated Comments Diagnosis BI ULTRASOUND BREAST Routine 02/19/2012 7:17 AM R esults for this FOCUSED LEFT CDT procedure are i n the results section. documented in this encounter Results BI Ultrasound Breast Focused Left (02/19/2012 7:17 AM CDT) Anatomical Region Laterality Modality Breast Left Ultrasound Specimen (Source) Anatomical Collection Method Collection Time Re ceived Time Location / / Volume Laterality 02/19/2012 7:17 AM CDT Addenda Addendum by Provider, Kay Sims 02/19/2012 7:17 AM CDT RAD^^^AL US Breast Left 02/19/2012 07:17:00 Impressions 02/19/2012 7:44 AM CDT 1. ??Category 2 Narrative 02/19/2012 7:44 AM CDT EXAM: US Breast Left INDICATION: breast lump COMPARISON: None. FINDINGS: At about 2:00 there is an is 5 x 8 mm hy poechoic mass. There is neither through transmission enhancement nor shadowing. There is some vasculature ages of this. This is most l ikely a fibroadenoma. This was discussed with patient and further s urgical consultation was offered. She declined this. Procedure Note Leilani Muse M.D. / Provider, Funmilayo blevins M.D. - 10/29/2016 EXAM: US Breast Left INDICATION: breast lump COMPARISON: None. FINDINGS: At about 2:00 there is an is 5 x 8 mm hy poechoic mass. There is neither through transmission enhancement nor shadowing. There is some vasculature ages of this. This is most l ikely a fibroadenoma. This was discussed with patient and further s urgical consultation was offered. She declined this. IMPRESSION: 1. Category 2 Dipti Givens R.V.T., RChanaMLupisS. IMG BI PROCEDURES documented in this encounter Visit Diagnoses Not on filedocumented in this encounter
--- OUTSIDE RECORDS SUMMARY | 2022-05-05 14:49 | XMS_ITS | Encounter Summary ---
:1990 Author Organization [facility] Address [address] [place] [address] Care Team Providers Name Role Phone Unavailable Primary Care Provider Unavailable Encounter Details Date Type Department Care Team Description 09/04/2015 [facility] Social History Tobacco Use Types Packs/Day Years [...] - - Height 163 cm (5' 4.17) 09/04/2015 11:32 AM CDT Body Mass Index - - documented in this encounter Plan of Treatment Not on filedocumented as of this encounter Visit Diagnoses Not on filedocumented in this encounter
--- OUTSIDE RECORDS SUMMARY | 2022-05-05 14:49 | XMS_ITS | Encounter Summary ---
:1990 Author Organization [facility] Address [address] [place] [address] Care Team Providers Name Role Phone Unavailable Primary Care Provider Unavailable Encounter Details Date Type Department Care Team Description 03/30/2014 Hospital Encounter HX [facility] Mercy Gannon M.D. [address] [place], [place] [phone] (Wo rk) Social History Tobacco Use Types Packs/Day Years Used Date Smoking Tobacco: Never Assessed Sex Assigned at Date Recorded Not on file documented as of this encounter Last Filed Vital Signs Vital Sign Reading Time Taken Comments Blood Pressure 100/60 03/30/2014 2:44 PM CDT Pulse - - Temperature - - Respiratory Rate - - Oxygen Saturation - - Inhaled Oxygen Concentration - - Weight 69.9 kg (154 lb 1.6 oz) 03/30/2014 2:44 PM CDT Height 163 cm (5' 4.17) 03/30/2014 2:44 PM CDT Body Mass Index 26.31 03/30/2014 2:44 PM CDT documented in this encounter Progress Notes Tessy Gannon M.D. - 03/30/2014 3:25 PM CDT Chief complaint is initiate OB care. HISTORY OF PRESENT ILLNESS The patient presents with a positive test to establish OB care. She is experiencing some of the usual signs of like breast tenderness, nausea, and fatigue. No signs of bleeding nor cramping. No prior obstetrical history. CURRENT MEDICATIONS and ALLERGIES have been reviewed and are current as of this date. SYSTEMS REVIEW She is experiencing normal bowel and bladder habits. She is not currently experiencing symptoms of pelvic pain nor unusual vaginal bleeding. No fevers nor chills. PAST MEDICAL/SURGICAL HISTORY: non contributory SOCIAL HISTORY: Smoking no Alcohol no Drugs no Family History Non contributory Vital signs, were reviewed and are current in the EMR as of today's date. Weight is documented on the ACOG form. PHYSICAL EXAMINATION GENERAL: She is alert and oriented x3. Appears in no acute distress. ABDOMEN: non tender, no masses palpated. Fundal height, size=dates. PELVIC: Lymph nodes are negative bilaterally. Normal external genitalia. Bartholin, urethral, and Skenes glands are normal. Cervix is long, thick, and closed. No cervical pathology is noted. A GC/Chlamydia swab was sent to the lab for review. HEART RATE: normal range Separately dictated is a transvaginal ultrasound which documents a single viable intrautierine with an EDC of 09-03-2014. Initial OB labs are pending at time of this dictation. Impression/Report/Plan: New OB Visit, with confirmed EDC of good accuracy. Recommendation is to take a multivitamin supplement containing 0.4mg of folate daily. Screening for genetic disorders may be undertaken if concern exists based on familial or age-related risk factors. Some of the dietary and environmental exposure guidelines reviewed include: Fish/sushi: good to eat in moderation but not shark, swordfish, alabcore tuna, tilefish, filipe macleral, or whale. Supplements: Nothing besides a vitamin unless the patient has special needs. There is no good evidence that taking extra Vitamin D or omega-3 fatty acids is beneficial. Cheese/meats: Although Listeriosis is rare, the common recommendation is to avoid unpasturized cheese or milk, refrigerated pates, meat spreads, or smoked seafood. Caffeine: okay in moderation. Alcohol: there is no acceptable safe level in . Smoking: avoid smoking and/or stop if you are . Hot tubs: avoid in the first trimester. Exercise: 30 minutes per day is beneficial. Hair dye: is okay in . We plan monthly follow up visits until 28 weeks gestation, and then twice monthly until 36 weeks. A anatomy survery will be scheduled at 20 weeks gestation. A one-hour glucose test will be performed between 24 and 28 weeks. CC: Labor and Delivery Electronically Signed By: TESSY GANNON MD On: 03/30/2014 03:25 PM Source: [facility] POWERCHART Document Id: [id number] documented in this encounter Nursing Notes Tessy Gannon M.D. - 03/30/2014 3:24 PM CDT Ambulatory Patient Education The following Patient Education Materials have been given to the patient: Patient Education Materials: Certified Performance Technologist Adapting to : Second Trimester Certified Performance Technologist Adapting to : Second Trimester Keep up the healthy habits you started in your first trimester. You might be a little more tired than normal. So plan your day wisely. Look at the tips below and choose the ones that suit your lifestyle. If you have any questions, check with your health care provider. If You Work If you can, adjust your work with your employer to fit your needs. Try these tips: ?? If you stand for long periods, find ways to do some tasks while sitting. Also, try to stand with one foot resting on a low stool or ledge. Shift your weight from foot to foot often. Wear low-heeled shoes. ?? If you sit, keep your knees level with your hips. Rest your feet on a firm surface. Sit tall withsupport for your low back. ?? If you work long hours, ask about adjusting your schedule. Try taking shorter breaks more often. When You Travel The second trimester may be the best time for any travel. Talk to your health care provider about any special plans you may need to make. Always: ?? Wear a seat belt. Fasten the lap part under your belly. Wear the shoulder part also. ?? Take frequent breaks during long trips by car or plane. Move around to stretch your legs. ?? Drink plenty of fluids on flights. The air in plane cabins is very dry. ?? Avoid hot climates or high altitudes if you are not used to them. ?? Avoid places where the food and water might make you sick. Taking Time to Relax Find time to rest and relax at work or at home: ?? Take short time-outs daily. Do relaxation exercises. ?? Breathe deeply during stressful times. ?? Try not to take on too much. Plan tasks for times when you have the most energy. ?? Take naps when you can. Or just sit and relax. ?? After week 16, avoid lying on your back for more than a few minutes. Instead, lie on your side. Switch sides often. Continuing as Lovers Unless your health care provider tells you otherwise, there is no reason to stop having sex now. Blood supply increases to the pelvic area in the second trimester. Because of this, sex might be more enjoyable. Try different positions and see whats best. Also, talk to your partner about any changes in desire. Spotting may occur after sex. Be sure to let your health care provider know if there is heavybleeding. Keeping Your Environment Safe You can still clean house and use scented products. Just take some simple precautions: ?? Wear gloves when using cleaning fluids. ?? Open windows to let in fresh air. Use a fan if you paint. ?? Avoid secondhand smoke. ?? Dont breathe fumes from nail cymro, hair spray, cleansers, or other chemicals. ?? [id number] [place] [address]. All rights reserved. This information is not intended as a substitute for professional medical care. Always follow your healthcare professional's instructions. This document has images extracted. Please consider using [employer] for all your patient education needs. Source: [facility] POWERCHART Document Id: [id number] documented in this encounter Miscellaneous Notes Miscellaneous - Tessy Gannon M.D. - 03/30/2014 3:24 PM CDT Ambulatory Patient Summary [facility] [address] [place] [id number] Visit Information Name: CELE AGUILAR [facility] Number: [id number] Current Date: 03/30/2014 15:24:27 Physicians Attending Provider: TESSY GANNON MD Primary [...] the Following Medications: Medication list as of 03-30-14 15:24 Attention: If you have any medications at [...] Electronically Signed By: TESSY GANNON MD Signed On:30-MAR-2014 15:24:13 Your Allergies & Intolerances Substance Reaction Symptoms Category Comments No Known Allergies Drug Your Problem List Problem Status Onset Comments Active 11/27/2013 Your Upcoming Appointments Date Time Location Provider 04/20/2014 10:30 [facility] Certified Performance Technologist Ultrasound Room 3 04/20/2014 11:30 [facility] Tessy Gannon MD Attention: Contact your local Clinic if further appointment detail needed. Adapting to : Second Trimester Keep up the healthy habits you started in your first trimester. You might be a little more tired than normal. So plan your day wisely. Look at the tips below and choose the ones that suit your lifestyle. If you have any questions, check with your health care provider. If You Work If you can, adjust your work with your employer to fit your needs. Try these tips: ?? If you stand for long periods, find ways to do some tasks while sitting. Also, try to stand with one foot resting on a low stool or ledge. Shift your weight from foot to foot often. Wear low-heeled shoes. ?? If you sit, keep your knees level with your hips. Rest your feet on a firm surface. Sit tall withsupport for your low back. ?? If you work long hours, ask about adjusting your schedule. Try taking shorter breaks more often. When You Travel The second trimester may be the best time for any travel. Talk to your health care provider about any special plans you may need to make. Always: ?? Wear a seat belt. Fasten the lap part under your belly. Wear the shoulder part also. ?? Take frequent breaks during long trips by car or plane. Move around to stretch your legs. ?? Drink plenty of fluids on flights. The air in plane cabins is very dry. ?? Avoid hot climates or high altitudes if you are not used to them. ?? Avoid places where the food and water might make you sick. Taking Time to Relax Find time to rest and relax at work or at home: ?? Take short time-outs daily. Do relaxation exercises. ?? Breathe deeply during stressful times. ?? Try not to take on too much. Plan tasks for times when you have the most energy. ?? Take naps when you can. Or just sit and relax. ?? After week 16, avoid lying on your back for more than a few minutes. Instead, lie on your side. Switch sides often. Continuing as Lovers Unless your health care provider tells you otherwise, there is no reason to stop having sex now. Blood supply increases to the pelvic area in the second trimester. Because of this, sex might be more enjoyable. Try different positions and see whats best. Also, talk to your partner about any changes in desire. Spotting may occur after sex. Be sure to let your health care provider know if there is heavybleeding. Keeping Your Environment Safe You can still clean house and use scented products. Just take some simple precautions: ?? Wear gloves when using cleaning fluids. ?? Open windows to let in fresh air. Use a fan if you paint. ?? Avoid secondhand smoke. ?? Dont breathe fumes from nail cymro, hair spray, cleansers, or other chemicals. ?? [id number] [facility], [address] [place] [address], [place] [address]. All rights reserved. This information is not intended as a substitute for professional medical care. Always follow your healthcare professional's instructions. Your Goals/Additional instructions: This document has images extracted. Please consider using [employer] for all your patient education needs. Source: [facility] POWERCHART Document Id: [id number] Miscellaneous - Tessy Gannon M.D. - 03/30/2014 3:24 PM CDT Ambulatory Discharge Medication List [facility] [address] [place] [id number] Visit Information Name: CELE AGUILAR [facility] Number: [id number] Visit Date: 03/30/2014 15:24:26 Attending Provider: TESSY GANNON MD Primary Care [...] the Following Medications: Medication list as of 03-30-14 15:24 Attention: If you have any medications at [...] Electronically Signed By: TESSY GANNON MD Signed On:30-MAR-2014 15:24:13 Additional Information: Source: [facility] POWERCHART Document Id: [id number] Miscellaneous - Mannie Hernandez, L.P.N. - 03/30/2014 2:44 PM CDT Adult Crosstie Inspector Intake/History Adult Crosstie Inspector Intake/History Entered On: 03/30/2014 14:49 CDT Performed On: 03/30/2014 14:44 CDT by MANNIE HERNANDEZ Intake Chief Complaint : NOB LMP 11-27-13 LMP Date : 11-27-13 Systolic Blood Pressure : 100 mmHg Diastolic Blood Pressure : 60 mmHg NIBP Mean : 73 mmHg BP Location : Left upper extremity Blood Pressure Cuff Size : Large Height : 163 cm(Converted to: 5 ft 4 inch(es), 64 inch(es)) Actual Weight : 69.9 kg(Converted to: 154 lb 2 oz) Dosing Weight Clinic : 69.9 kg Clinic BSA : 1.78 Body Mass Index : 26.31 kg/m2 MANNIE HERNANDEZ - 03/30/2014 14:44 CDT General Info Languages : Welsh, Belarusian Is Patient Female and 13-50 no hysterectomy : No MANNIE HERNANDEZ - 03/30/2014 14:44 CDT Subjective Pain Symptoms : No MANNIE HERNANDEZ - 03/30/2014 14:44 CDT Dependent Habits Tobacco Use/Currently Using : No Exposure to Tobacco Smoke : Patient smokes Smoking Status : Former smoker MANNIE HERNANDEZ - 03/30/2014 14:44 CDT Tobacco Use Grid Type : Cigarettes Cigarette Use Packs/Day : 0.5 MANNIE HERNANDEZ - 03/30/2014 14:44 CDT Source: [employer] Document Id: [id number] CDT!27 documented in this encounter Plan of Treatment Not on filedocumented as of this encounter Procedures Procedure Name Priority Date/Time Associated Diagnosis Comme nts N GONOR AMP SRC Routine 03/30/2014 3:42 PM Result s for this CDT procedure are i n the results section. N GONOR AMP DNA Routine 03/30/2014 3:42 PM Result s for this CDT procedure are i n the results section. C TRACH AMP SRC Routine 03/30/2014 3:42 PM Result s for this CDT procedure are i n the results section. C TRACH AMP RNA Routine 03/30/2014 3:42 PM Result s for this CDT procedure are i n the results section. documented in this encounter Results HX-N gonor Amp DNA (03/30/2014 3:42 PM CDT) P athologist Signature HXN gonor Amp Negative POWERCHART DNA-[place] Specimen (Source) Anatomical Collection Method Collection Time Re ceived Time Location / / Volume Laterality 03/30/2014 3:42 PM CDT Narrative POWERCHART - 03/31/2014 1:49 PM CDT Test Performed by: [facility] - [address] [address] Issuing Operator: Dilcia Davison Tessy Gannon M.D. LAB HISTORICAL ORDERS Performing Organization Address City/State/ZIP Code Phon e Number POWERCHART HX-N gonor Amp Src (03/30/2014 3:42 PM CDT) P athologist Signature HXN gonor Amp [place] [facility] Anatomical Collection Method Collection Time Re ceived Time Location / / Volume Laterality 03/30/2014 3:42 PM CDT Tessy Gannon M.D. LAB HISTORICAL ORDERS Performing Organization Address City/State/ZIP Code Phon e Number POWERCHART HX-C trach Amp RNA (03/30/2014 3:42 PM CDT) [facility] Method Time Signature Chlamydia Negative POWERCHART trachomatis amplified RNA Specimen (Source) Anatomical Collection Method Collection Time Re ceived Time Location / / Volume Laterality 03/30/2014 3:42 PM CDT Tessy Gannon M.D. LAB HISTORICAL ORDERS Performing Organization Address City/State/ZIP Code Phon e Number POWERCHART HX-C trach Amp Src (03/30/2014 3:42 PM CDT) P athologist Signature HXC trach Amp [place] POWERCHART [facility] Specimen (Source) Anatomical Collection Method Collection Time Re ceived Time Location / / Volume Laterality 03/30/2014 3:42 PM CDT Tessy Gannon M.D. LAB HISTORICAL ORDERS Performing Organization Address City/State/ZIP Code Phon e Number POWERCHART documented in this encounter Visit Diagnoses Not on filedocumented in this encounter
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
--- OUTSIDE RECORDS SUMMARY | 2022-05-05 14:49 | XMS_ITS | Encounter Summary ---
:1990 Author Organization [facility] Address [address] [place] [address] Care Team Providers Name Role Phone Unavailable Primary Care Provider Unavailable Encounter Details Date Type Department Care Team Description 08/26/2014 Hospital Encounter HX NO MAPPING Murray Law M.D. Social History Tobacco Use Types Packs/Day Years Used Date Smoking Tobacco: Never Assessed Sex Assigned at Date Recorded Not on file documented as of this encounter Plan of Treatment Not on filedocumented as of this encounter Visit Diagnoses Not on filedocumented in this encounter
--- OUTSIDE RECORDS SUMMARY | 2022-05-05 14:49 | XMS_ITS | Encounter Summary ---
:1990 Author Organization [facility] Address [address] [place] [address] Care Team Providers Name Role Phone Unavailable Primary Care Provider Unavailable Encounter Details Date Type Department Care Team Description 04/20/2014 Hospital Encounter HX [facility] OBGYMercy Wilson M.D. [address] [place], [place] [phone] (Wo rk) Social History Tobacco Use Types Packs/Day Years Used Date Smoking Tobacco: Never Assessed Sex Assigned at Date Recorded Not on file documented as of this encounter Last Filed Vital Signs Vital Sign Reading Time Taken Comments Blood Pressure 110/62 04/20/2014 11:08 AM INSULATION BLOWER Pulse - - Temperature - - Respiratory Rate - - Oxygen Saturation - - Inhaled Oxygen Concentration - - Weight 71.6 kg (157 lb 13.6 oz) 04/20/2014 11:08 AM INSULATION BLOWER Height 163 cm (5' 4.17) 04/20/2014 11:08 AM INSULATION BLOWER Body Mass Index 26.95 04/20/2014 11:08 AM INSULATION BLOWER documented in this encounter Progress Notes Tessy Gannon M.D. - 04/20/2014 11:49 AM CST CHIEF COMPLAINT: care HISTORY OF PRESENT ILLNESS: This patient presents for a routine visit in the second trimester. She has no specific complaints today and is feeling movement. She is not experiencing contractions, pelvic pain, nor vaginal bleeding. CURRENT MEDICATIONS and ALLERGIES have been reviewed [...] by doppler interrogation. OB labs reviewed today. survey was normal, gender is male. IMPRESSION/REPORT/PLAN: Second trimester . Recommendations: Follow up visits are scheduled once monthly until 28 weeks, then bi-weekly after that. A one-hour glucose test will be scheduled between 24 and 28 weeks. Warning signs of contractions and/or labor (such as bleeding and cramping) or infection (abnormal vaginal discharge) have been discussed. Tessy Morocho CC: Labor and Delivery Electronically Signed By: TESSY GANNON MD On: 04/20/2014 11:50 AM Source: [facility] POWERCHART Document Id: [id number] LATION BLOWER documented in this encounter Nursing Notes Tessy Gannon M.D. - 04/20/2014 11:48 AM CST Ambulatory Patient Education The following Patient Education Materials have been given to the patient: Patient Education Materials: Card Cutter Helper Adapting to : Second Trimester Card Cutter Helper Adapting to : Second Trimester Keep up [...] smoke. ?? Dont breathe fumes from nail uruguayan, hair spray, cleansers, or other chemicals. ?? [id number] [facility], [address] [place] [address], [place] [address]. All rights reserved. This information is not intended as a substitute for professional medical care. Always follow your healthcare professional's instructions. This document has images extracted. Please consider using [employer] for all your patient education needs. Source: [facility] POWERCHART Document Id: [id number] LATION BLOWER documented in this encounter Miscellaneous Notes Miscellaneous - Tessy Gannon M.D. - 04/20/2014 11:48 AM CST Ambulatory Patient Summary [facility] [address] [facility] [place] [id number] Visit Information Name: CELE AGUILAR [facility] Number: [id number] Current Date: 04/20/2014 11:48:29 Physicians Attending Provider: TESSY GANNON MD Primary Care Provider: PCP, UNASSIGNED - OW BOYDCELE OSVALDO has been given the following list of [...] the Following Medications: Medication list as of 04-20-14 11:48 Attention: If you have any medications at [...] Electronically Signed By: TESSY GANNON MD Signed On:20-APR-2014 11:48:17 Your Allergies & Intolerances Substance Reaction Symptoms [...] smoke. ?? Dont breathe fumes from nail uruguayan, hair spray, cleansers, or other chemicals. ?? [id number] [facility], [address] [place] [address], [place] [address]. All rights reserved. This information is not intended as a substitute for professional medical care. Always follow your healthcare professional's instructions. Your Goals/Additional instructions: This document has images extracted. Please consider using [employer] for all your patient education needs. Source: [facility] Awesome.me Document Id: [id number] LATION BLOWER Miscellaneous - Tessy Gannon M.D. - 04/20/2014 11:48 AM CST Ambulatory Discharge Medication List [facility] [address] [place] [id number] Visit Information Name: CELE AGUILAR [facility] Number: [id number] Visit Date: 04/20/2014 11:48:29 Attending Provider: TESSY GANNON MD Primary Care Provider: PCP, UNASSIGNED - CELE AGUILAR has been given the following [...] the Following Medications: Medication list as of 04-20-14 11:48 Attention: If you have any medications at [...] Electronically Signed By: TESSY GANNON MD Signed On:20-APR-2014 11:48:17 Additional Information: Source: [facility] Awesome.me Document Id: [id number] LATION BLOWER Miscellaneous - Kvng Chua L.PLupisN. 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 Intake/History Entered On: 04/20/2014 11:11 INSULATION BLOWER Performed On: 04/20/2014 11:08 INSULATION BLOWER by KVNG CHUA Intake Chief Complaint : ob check see acog LMP Date : 11-27-2013 Systolic Blood Pressure : 110 mmHg Diastolic Blood Pressure : 62 mmHg NIBP Mean : 78 mmHg Height : 163 cm(Converted to: 5 ft 4 inch(es), 64 inch(es)) Actual Weight : 71.6 kg(Converted to: 157 lb 14 oz) Dosing Weight Clinic : 71.6 kg Clinic BSA : 1.8 Body Mass Index : 26.95 kg/m2 KVNG CHUA - 04/20/2014 11:08 INSULATION BLOWER General Info Information Given By : Patient Languages : Polish, Malay Is Patient Female and 13-50 no hysterectomy : Yes Status : Confirmed positive Are you ? : No KVNG CHUA - 04/20/2014 11:08 INSULATION BLOWER Subjective Pain Symptoms : Yes KVNG CHUA - 04/20/2014 11:08 INSULATION BLOWER Pain Pain Assessment Grid Pain 1 Location : Other: sharp pain on left side. KVNG CHUA - 04/20/2014 11:08 INSULATION BLOWER Dependent Habits Tobacco Use/Currently Using : No Exposure to Tobacco Smoke : Patient smokes Smoking Status : Former smoker KVNG CHUA - 04/20/2014 11:08 INSULATION BLOWER Tobacco Use Grid Type : Cigarettes Cigarette Use Packs/Day : 0.5 KVNG CHUA - 04/20/2014 11:08 INSULATION BLOWER ID Screen Travel Within Last 21 Days : No KVNG CHUA - 04/20/2014 11:08 INSULATION BLOWER Source: [facility] POWERCHART Document Id: [id number] INSULATION BLOWER!34 LATION BLOWER documented in this encounter Plan of Treatment Not on filedocumented as of this encounter Visit Diagnoses Not on filedocumented in this encounter
--- OUTSIDE RECORDS SUMMARY | 2022-05-05 14:49 | XMS_ITS | Encounter Summary ---
:1990 [address] Organization [facility] Address [address] [place] [address] Care Team Providers Name Role Phone Unavailable Primary Care Provider Unavailable Reason for Visit Reason Onset Date Comments Outpatient COVID-19 Testing 02/25/2020 Encounter Details Date Type Department Care Team Description 02/25/2020 External Outreach Department of Lakhwinder Higuera Infect ion Upper Internal Medicine in J, D.O. Respiratory (Primary [place], [place] [address] Dx) [address] [place] [phone] Social History Tobacco Use Types Packs/Day Years Used Date Smoking Tobacco: Every Day Sex Assigned at Date Recorded Not on file documented as of this encounter Progress Notes Anny Sumner, R.N. - 02/25/2020 1:10 PM CDT Encounter created for the drive-through COVID-19 testing. documented in this encounter Plan of Treatment Not on filedocumented as of this encounter Procedures Procedure Name Priority Date/Time Associated Diagnosis Comme nts SARS CORONAVIRUS-2 Routine 02/25/2020 2:24 PM Infection Upper Results for this RNA, V CDT Respiratory procedure are i n the results section. documented in this encounter Results SARS Coronavirus-2 RNA, V Symptomatic (02/25/2020 2:24 PM CDT) [facility] Method Time Signature SARS-CoV-2 Swab, 02/26/2020 MKTO Specimen Nasopharynx 12:53 PM Source CDT SARS CoV-2 Undetected Undetected 02/26/2020 LILIA RNA, TMA 12:53 PM CDT Comment: SARS-CoV-2 RNA absent. This result does not rule out COVID-19 in the patient, as the sensitivity of the test depends o n the timing of the specimen collection and the quality of the specim en. Result should be correlated with patient's history and clinical presentat ion. ----ADDITIONAL INFORMATION---- This test is performed using the Aptima SARS-CoV-2 assay ([employer] which has received Emergency Use Authori zation (EUA) by the U.S. Food and Drug Administration. Fact sheets for this Emergency Use Autho rization (EUA) assay can be found at the following links: For Healthcare Providers: https://www.Zoop[employer] a.gov/media/591794/download For Patients: https://www.fda.gov/media/ 666969/download Specimen Anatomical Collection Method Collection Time Receive d Time (Source) Location / / Volume Laterality Varies 02/25/2020 2:24 PM 0 5:02 (Nasopharynx) CDT PM CDT Lakhwinder Higuera D.O. LAB MICROBIOLOGY - GENERAL O RDERABLES Performing Organization Address City/State/ZIP Code Phon e Number [facility]- [address] [place] [phone] [place] [address] [place] [address] System [address] documented in this encounter Visit Diagnoses Diagnosis Infection Upper Respiratory - Primary documented in this encounter Additional Health Concerns Infection Onset Date Last Indicated Resolved Time COVID19 Pending 02/25/2020 02/25/2020 02/26/2020 12:54 PM CDT Assessment Noted Time PHQ-9 Depression Total Score: 6 11/12/2015 4:00 PM CDT documented as of this encounter
--- OUTSIDE RECORDS SUMMARY | 2022-05-05 14:49 | XMS_ITS | Encounter Summary ---
:1990 Author Organization [facility] Address [address] [place] [id number] Care Team Providers Name Role Phone Unavailable Primary Care Provider Unavailable Encounter Details Date Type Department Care Team Description 10/03/2020 Orders Only [facility] Sa nicolás Spicer M.D. [address] [place] [phone] (Wo rk) Social History Tobacco Use Types [...]
--- OUTSIDE RECORDS SUMMARY | 2022-05-05 14:49 | XMS_ITS | Encounter Summary ---
:1990 Author Organization [facility] Address [address] [place] [address] Care Team Providers Name Role Phone Unavailable Primary Care Provider Unavailable Encounter Details Date Type Department Care Team Description 01/03/2014 Hospital Encounter [facility] Muna Linton M.D. Social History Tobacco Use Types Packs/Day Years Used Date Smoking Tobacco: Never Assessed Sex Assigned at Date Recorded Not on file documented as of this encounter Last Filed Vital Signs Vital Sign Reading Time Taken Comments Blood Pressure 112/60 01/03/2014 4:40 PM CDT Pulse 88 01/03/2014 4:40 PM CDT Temperature - - Respiratory Rate 20 01/03/2014 4:40 PM CDT Oxygen Saturation - - Inhaled Oxygen Concentration - - Weight 60.8 kg (134 lb 0.6 oz) 01/03/2014 4:40 PM CDT Height 163 cm (5' 4.17) 01/03/2014 4:28 PM CDT Body Mass Index 22.88 01/03/2014 4:28 PM CDT documented in this encounter Progress Notes Lauri Linton M.D. - 01/03/2014 4:27 PM CDT [id number] CHIEF COMPLAINT/REASON FOR VISIT Confirmed . HISTORY OF PRESENT ILLNESS This 23-year-old female, identifying a LMP of 11/20/2013 plus/minus 1 day, presents interested in confirmation having had 2 home test return positive. This would represent an unplanned 1st she states would be the result of a broken condom. Symptoms of pregnancyinclude an element of tiredness, breast tenderness and a bit of nausea. She has every intention of continuing the and keeping the baby. The patient is accompanied by a friend who is supportive. SYSTEMS REVIEW No other current acute cardiorespiratory, gastrointestinal, or genitourinary positive. MEDICATIONS None. VITAL SIGNS As charted. PHYSICAL EXAMINATION GENERAL: Healthy-appearing female. CARDIOVASCULAR: Regular. LUNGS: Clear. ABDOMEN: Soft, nontender. IMPRESSION/REPORT/PLAN confirmed, currently at 6-2/7 weeks by dates yielding an expected date of confinement of 08/27/2014. DIAGNOSTIC: test is positive. THERAPEUTIC: Reviewed the above results. Have advised instituting the vitamin daily and scheduling new OB review with the Health Education Department, followed by provider visit and the patient is leaning toward the [facility] OF MATHEMATICS department for same. PATIENT EDUCATION: Reviewed the above. Best wishes are offered. Lauri Linton M.D./cristi Electronically Signed By: LAURI LINTON MD On: 01/05/2014 07:21 AM Source: [facility] MHSDOLBEYNONRADSYS Document Id: [id number] documented in this encounter Miscellaneous Notes Miscellaneous - Lauri Linton M.D. - 01/03/2014 5:41 PM CDT Ambulatory Discharge Medication List [address] [id number] Visit Information Name: CELE AGUILAR [facility] Number: [id number] Visit Date: 01/03/2014 17:41:09 Attending Provider: LAURI LINTON MD Primary Care Provider: PCP, UNASSIGNED - [...] Take Indications/Special Instructions/Comments/Notes for Patient Medication Changes/Routing Stop Taking the Following Medications: calcium-vitamin D (calcium (as carbonate)-vitamin D 500 mg-400 intl units oral tablet, chewable) medroxyPROGESTERone (Depo-Provera Contraceptive) Medication list as of 01-03-14 17:41 Attention: If you have any medications at home that are not on this list, DO NOT take them until youcontact your provider for clarification. Give a copy of your medication list to your primary care provider. Update your medication list any time medications or doses are changed and carry your medication list at all times in case of emergency. Electronically Signed By: LAURI LINTON MD Signed On:03-JAN-2014 17:41:08 Additional Information: Source: [facility] POWERCHART Document Id: [id number] Miscellaneous - Lauri Linton M.D. - 01/03/2014 5:41 PM CDT Ambulatory Patient Summary [address] [id number] Visit Information Name: CELE AGUILAR [facility] Number: [id number] Current Date: 01/03/2014 17:41:10 Physicians Attending Provider: LAURI LINTON MD Primary Care Provider: PCP, UNASSIGNED - [...] Take Indications/Special Instructions/Comments/Notes for Patient Medication Changes/Routing Stop Taking the Following Medications: calcium-vitamin D (calcium (as carbonate)-vitamin D 500 mg-400 intl units oral tablet, chewable) medroxyPROGESTERone (Depo-Provera Contraceptive) Medication list as of 01-03-14 17:41 Attention: If you have any medications at home that are not on this list, DO NOT take them until youcontact your provider for clarification. Give a copy of your medication list to your primary care provider. Update your medication list any time medications or doses are changed and carry your medication list at all times in case of emergency. Electronically Signed By: LAURI LINTON MD Signed On:03-JAN-2014 17:41:08 Your Allergies & Intolerances Substance Reaction Symptoms Category Comments No Known Allergies Drug Your Problem List Problem Status Onset Comments No Problems found Your Upcoming Appointments Date Time Location Reason Provider No Appointments found Attention: Contact your local Clinic if further appointment detail needed. Your Goals/Additional instructions: Source: [facility] Document Id: [id number] Miscellaneous - Yancy Miner L.P.N. 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 Entered On: 01/03/2014 16:42 CDT Performed On: 01/03/2014 16:40 CDT by YANCY MINER Intake Chief Complaint : LMP 11/20/2013 two positive test Temperature Oral : 37.4 DegC(Converted to: 99.3 DegF) (HI) Peripheral Pulse Rate : 88 /min Respiratory Rate : 20 /min Systolic Blood Pressure : 112 mmHg Diastolic Blood Pressure : 60 mmHg NIBP Mean : 77 mmHg BP Location : Right upper extremity Blood Pressure Cuff Size : Regular Oxygen Therapy : Room air Actual Weight : 60.8 kg(Converted to: 134 lb 1 oz) Weight Source : Standing scale Dosing Weight Clinic : 60.8 kg YANCY MINER - 01/03/2014 16:40 CDT General Info Information Given By : Patient Languages : Azeri, Indian YANCY MINER - 01/03/2014 16:40 CDT Subjective Pain Symptoms : No YANCY MINER 01/03/2014 16:40 CDT Dependent Habits Tobacco Use/Currently Using : Yes Exposure to Tobacco Smoke : Patient smokes Smoking Status : Current every day smoker YANCY MINER - 01/03/2014 16:40 CDT Tobacco Use Grid Type : Cigarettes Cigarette Use Packs/Day : 0.5 YANCY MINER 01/03/2014 16:40 CDT Source: [facility] Document Id: [id number] CDT!28 documented in this encounter Plan of Treatment Not on filedocumented as of this encounter Procedures Procedure Name Priority Date/Time Associated Diagnosis Comme nts TEST, U Routine 01/03/2014 5:20 PM Resu lts for this CDT procedure are i n the results section. documented in this encounter Results Test, Qualitative, Urine (01/03/2014 5:20 PM CDT) [facility] gist Method Time Signature HXBeta-hCG Positive POWERCHART Qualitative Urine Specimen (Source) Anatomical Collection Method Collection Time Re ceived Time Location / / Volume Laterality Urine 01/03/2014 5:20 PM CDT Lauri Linton M.D. LAB URINE ORDERABLES Performing Organization Address City/State/ZIP Code Phon e Number POWERCHART documented in this encounter Visit Diagnoses Not on filedocumented in this encounter
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
--- OUTSIDE RECORDS SUMMARY | 2022-05-05 14:49 | XMS_ITS | Encounter Summary ---
:1990 Author Organization [facility] Address [address] [place] [address] Care Team Providers Name Role Phone Unavailable Primary Care Provider Unavailable Reason for Visit Reason Comments COVID Nurse Line Encounter Details Date Type Department Care Team Description 02/25/2020 Clinical Communication Division of Janee Burciaga Nurse Rosalina [facility] Dilcia, R.NLupis [facility], [facility] [place], [place] [address] [place] [address] Social History Tobacco Use Types Packs/Day Years Used Date Smoking Tobacco: Every Day Sex Assigned at Date Recorded Not on file documented as of this encounter Miscellaneous Notes Telephone Encounter - Janee Burciaga RLupisNLupis - 02/25/2020 1:03 PM CDT COVID-19 Nurse Line Screening ASSESSMENT COVID 19 Screening Have you had close contact with a person who has a LABORATORY CONFIRMED case of COVID-19?: No - Continue screening. In the last 48 hours have you had any of the following symptoms?: New sore throat Do you have any urgent symptoms?: None (Continue Screening) Has the patient had COVID19 diagnosed with a PCR test in the last 90 days? : No (End Screening- Patient Meets Criteria for Testing PLAN Endpoint recommendation: Screening positive, testing indicated, advised to be swabbed for COVID-19, sent to [place] located [address] to back of the clinic; cannot access from main parking lot. Testing hours are M-F 10 am to 5 pm and Sat-Sun 9 am to 2 pm. When you arrive stay in your car and someone will direct you. , If it is currently after hours, please report to the testing site when it is next open. and Please avoid using public transportation per CDC recommendation.If you do not have personal transportation please self-quarantine until a personal transportation option is available. Care Points provided: STANDARD PRECAUTIONS FOR ALL PATIENTS: Wash hands often with soap and water for at least 20 seconds, especially after blowing your nose, coughing, sneezing, or having been in a public place. If soap and water aren't available, use a hand executive relations specialist that contains at least 60% alcohol. Avoid close contact with anyone who may be exhibiting respiratory symptoms such as coughing and sneezing. Avoid touching your eyes, nose and mouth. Clean and disinfect frequently touched surfaces daily. Cover your mouth and nose with a cloth face cover when around others or in public. The cloth face cover is not a substitute for social distancing. Continue to keep about 6 feet between yourself andothers. Monitor for symptoms. Do not take your temperature within 30 minutes of exercise. If your test or screen is negative and new symptoms develop please contact your provider if it has been greaterthan 72 hours since you were tested. Educational Resource: https://www.cdc.gov/coronavirus/2019-ncov/ dtquyjd-tthmjiw-zlbx/index.html RECOMMENDATIONS TESTING CRITERIA IS MET: Stay home except to get medical care. Quarantine for 14 days if exposed to someone with a laboratory confirmed case of COVID-19 exposure regardless of your test results. Avoid public areas and public transportation. Separate yourself from other people and stay in a specific sick room if possible. Wear a cloth face covering, over your nose and mouth if youmust be around other people even at home). Cover your nose and mouth when coughing or sneezing. Contact employer/occupational health department to notify them that they are being tested. Seek emergent care if any of the following occur: 1) Trouble breathing, 2) Bluish lips or face, 3) Persistent pain or pressure in the chest, 4) Newly confused or unable to stay alert and awake. Notify appropriate care provider if any new or worsening symptoms. You may need re-testing if it has been greater than 72 hours after a negative COVID- 19 test result. Education Resources: https://www.cdc.gov/coronavirus/2019- ncov/yt-pqz-dip-sick/astnu-xlfs-giar.html SELF CARE FOR ALL PATIENTS: Take breaks from watching, reading, or listening to news stories. Make time to unwind. Try to do some other activities you enjoy. Connect with others. Be creative in keepingconnected with loved ones, especially those at high risk. Try healthy coping strategies such as meditation, relaxation, exercise, healthy eating habits, and avoid alcohol and drugs. Education: patient/caregiver Patient/caregiver able to teach back Patient agreeable to plan of care: Yes The following references were used: [facility] IPA novel coronavirus (COVID- 19) resources documented in this encounter Plan of Treatment Not on filedocumented as of this encounter Visit Diagnoses Not on filedocumented in this encounter Additional Health Concerns Assessment Noted Time PHQ-9 Depression Total Score: 6 11/12/2015 4:00 PM CDT documented as of this encounter
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
--- OUTSIDE RECORDS SUMMARY | 2022-05-05 14:49 | XMS_ITS | Encounter Summary ---
:1990 Author Organization [facility] Address [address] [place] [address] Care Team Providers Name Role Phone Unavailable Primary Care Provider Unavailable Encounter Details Date Type Department Care Team Description 02/18/2012 Hospital Encounter HX [facility] Angle Whitney, Peña.N.P., R.N. Social History Tobacco Use Types Packs/Day Years Used Date Smoking Tobacco: Never Assessed Sex Assigned at Date Recorded Not on file documented as of this encounter Last Filed Vital Signs Vital Sign Reading Time Taken Comments Blood Pressure 100/70 02/18/2012 9:29 AM CDT Pulse - - Temperature - - Respiratory Rate - - Oxygen Saturation - - Inhaled Oxygen Concentration - - Weight 62.6 kg (138 lb 0.1 oz) 02/18/2012 9:29 AM CDT Height - - Body Mass Index 23.56 02/12/2012 9:30 PM CDT documented in this encounter Progress Notes Angle Whitney C.N.P. - 02/24/2012 12:00 AM CDT [id number] Patient was advised following her ultrasound evaluation of breast mass as to category 2 findings with the likelihood of fibroadenoma. She appeared reassured in this regard and she was offered surgical consultation and this was declined. Angle Whitney R.N., C.N.P./bridgett Electronically Signed By: ANGLE WHITNEY RN, CNP On: 02/26/2012 03:22 PM Source: [facility] MHSDOLBEYNONRADSYS Document Id: [id number] Angle Whitney, C.N.P. - 02/18/2012 9:15 AM CDT [id number] CHIEF COMPLAINT/REASON FOR VISIT Breast lump. HISTORY OF PRESENT ILLNESS Patient is a 21-year-old female who comes in today with complaints of having noticed left chest discomfort in the area of the left breast. She states it began approximately one week ago, and the discomfort could occur approximately three times a day and last 5 to 10 minutes. Sometimes it feels as though it might radiate outside of the breast itself and is achy. FAMILY HISTORY Her mother has had cystic breasts with benign findings. PAST MEDICAL/SURGICAL HISTORY She is 2. She has been on Depo-Provera for control through [facility] in [place]. She considers herself basically healthy without any other complaints. She was seen in the emergency room for evaluation of her discomfort and was diagnosed with costochondritis and breast mass.She has responded fairly well to Motrin. PHYSICAL EXAM BREASTS: Examination of breasts in a seated and supine position reveals symmetrical-appearing breasts. The right breast shows no mass, no nipple discharge. Axilla clear. The left breast: Area of discomfort is at approximately 2 o'clock and is fibrocystic in nature. The entire area appears to be approxi mately 2 to 3 cm. There is no nipple discharge. Axilla clear. IMPRESSION/REPORT/PLAN In consultation with Dr. Cantrell, the patient is advised we will do a screening breast ultrasound today and follow as determined per findings. She is aware that she could have discomfort related to somehormonal changes and increased caffeine will also give her this. She will be advised as to the results of the ultrasound. It is noted the patient is not current with her tetanus booster, and we will today give her Tdap. Angle Whitney R.N., C.N.P./brennen Electronically Signed By: ANGLE WHITNEY RN, CNP On: 02/25/2012 04:18 PM Source: [facility] MHSDOLBEYNONKOFI Document Id: [id number] documented in this encounter Miscellaneous Notes Miscellaneous - Alan Reynolds L.PLupisN. 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 Systolic Blood Pressure : 100mmHg Diastolic Blood Pressure : 70mmHg NIBP Mean : 80mmHg BP Location : Right upper extremity Blood Pressure Cuff Size : Regular Actual Weight : 62.6kg(Converted to: 138lb 0oz) Weight Source : Standing scale Dosing Weight Clinic : 62.60kg Estimated Height/Length : 163cm(Converted to: 5ft 4inch(es), 64.2inch(es)) ALAN REYNOLDS - 02/18/2012 9:29 CDT Subjective Pain Symptoms : Yes ALAN REYNOLDS - 02/18/2012 9:29 CDT Pain Pain Assessment Grid Pain 1 Location : Breast Laterality : Left Intensity : 6 ALAN REYNOLDS - 02/18/2012 9:29 CDT Dependent Habits Tobacco Use/Currently Using : Yes Tobacco Use/Advised to Quit : Yes Exposure to Tobacco Smoke : Patient smokes Smoking Status : Current every day smoker ALAN REYNOLDS - 02/18/2012 9:29 CDT Tobacco Use Grid Type : Cigarettes Cigarette Use Packs/Day : 0.5 ALAN REYNOLDS - 02/18/2012 9:29 CDT Alcohol Use : No ALAN REYNOLDS - 02/18/2012 9:29 CDT Allergy Latex Reaction : No Latex Hives/Itch : No Latex Congestion/Eye Irr/Breathing : No Latex Symptom Progression : No Latex Previous Test : No ALAN REYNOLDS - 02/18/2012 9:29 CDT Allergies (Active) NKA Estimated Onset Date: Unspecified ; Created By: Contributor_system, AL_HX_SYS; Reaction Status: Active ; Category: Drug ; Substance: NKA ; Type: Unknown ; Updated By: SYSTEM, SYSTEM; Reviewed Date:02/18/2012 9:28 CDT [facility] Document Id: [id number] documented in this encounter Plan of Treatment Not on filedocumented as of this encounter Visit Diagnoses Not on filedocumented in this encounter
--- OUTSIDE RECORDS SUMMARY | 2022-05-05 14:49 | XMS_ITS | Encounter Summary ---
:1990 Author Organization [facility] Address [address] [place] [address] Care Team Providers Name Role Phone Unavailable Primary Care Provider Unavailable Encounter Details Date Type Department Care Team Description 06/17/2015 Hospital Encounter HX NO MAPPING Elsy Metcalf M.D. [address] [place], [place] [phone] (Wo rk) Social History [...] - - Height 163 cm (5' 4.17) 06/17/2015 4:10 PM DIRECTOR GENERAL Body Mass Index - - documented in this encounter Plan of Treatment Not on filedocumented as of this encounter Visit Diagnoses Not on filedocumented in this encounter
--- OUTSIDE RECORDS SUMMARY | 2022-05-05 14:49 | XMS_ITS | Encounter Summary ---
:[address] [facility] Address [address] [place] [address] Care Team Providers Name Role Phone Unavailable Primary Care Provider Unavailable Encounter Details Date Type Department Care Team Description 08/10/2014 Hospital Encounter [facility]X [facility] OBGYMercy Wilson M.D. [address] [place], [place] [phone] (Wo rk) Social History Tobacco Use Types Packs/Day Years Used Date Smoking Tobacco: Never Assessed Sex Assigned at Date Recorded Not on file documented as of this encounter Last Filed Vital Signs Vital Sign Reading Time Taken Comments Blood Pressure 120/60 08/10/2014 9:46 AM WEIGHT TRAINER Pulse - - Temperature - - Respiratory Rate - - Oxygen Saturation - - Inhaled Oxygen Concentration - - Weight 85.4 kg (188 lb 4.4 oz) 08/10/2014 9:46 AM WEIGHT TRAINER Height 163 cm (5' 4.17) 08/10/2014 9:46 AM WEIGHT TRAINER Body Mass Index 32.14 08/10/2014 9:46 AM WEIGHT TRAINER documented in this encounter Progress Notes Tessy Gannon M.D. - 08/10/2014 9:57 AM CST CHIEF COMPLAINT: care, third trimester. HISTORY [...] B strep test is documented in the EMR as negative. Cervical exam was performed, results are 1cm IMPRESSION/REPORT/PLAN: Third trimester . Recommendations: Follow up [...] Electronically Signed By: TESSY GANNON MD On: 08/10/2014 09:57 AM Source: [facility] POWERCHART Document Id: [id number] HT TRAINER documented in this encounter Miscellaneous Notes Miscellaneous - Tessy Gannon M.D. - 08/10/2014 9:56 AM CST Ambulatory Patient Summary [address] [id number] Visit Information Name: CELE AUGILAR [facility] Number: [id number] Current Date: 08/10/2014 09:56:46 Physicians Attending Provider: TESSY GANNON MD Primary [...] the Following Medications: Medication list as of 08-10-14 09:56 Attention: If you have any medications at [...] Electronically Signed By: TESSY GANNON MD Signed On:10-AUG-2014 09:56:41 Your Allergies & Intolerances Substance Reaction Symptoms Category Comments No Known Allergies Drug Your Problem List Problem Status Onset Comments Active 11/27/2013 Your Upcoming Appointments Date Time Location Provider 08/17/2014 15:15 [facility] IV TECHNICIAN Tessy Gannon MD 08/25/2014 14:15 [facility] IV TECHNICIAN Tessy Gannon MD 09/01/2014 14:45 [facility] IV TECHNICIAN Tessy Gannon MD Attention: Contact your local Clinic if further appointment detail needed. Your Goals/Additional instructions: Source: [facility] POWERCHART Document Id: [id number] HT TRAINER Miscellaneous - Tessy Gannon M.D. - 08/10/2014 9:56 AM CST Ambulatory Discharge Medication List [facility] [address] [place] [id number] Visit Information Name: CELE AGUILAR [facility] Number: [id number] Visit Date: 08/10/2014 09:56:45 Attending Provider: TESSY GANNON MD Primary Care [...] the Following Medications: Medication list as of 08-10-14 09:56 Attention: If you have any medications at [...] Electronically Signed By: TESSY GANNON MD Signed On:10-AUG-2014 09:56:41 Additional Information: Source: [facility] POWERCHART Document Id: [id number] HT TRAINER Miscellaneous - Lisa Hernandez, L.P.N. 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 Paralegal Intake/History Adult Contracts Paralegal Intake/History Entered On: 08/10/2014 9:48 WEIGHT TRAINER Performed On: 08/10/2014 9:46 WEIGHT TRAINER by LISA HERNANDEZ Intake Chief Complaint : ob check Systolic Blood Pressure : 120 mmHg Diastolic Blood Pressure : 60 mmHg NIBP Mean : 80 mmHg BP Location : Left upper extremity Blood Pressure Cuff Size : Large Height : 163 cm(Converted to: 5 ft 4 inch(es), 64 inch(es)) Actual Weight : 85.4 kg(Converted to: 188 lb 4 oz) Dosing Weight Clinic : 85.4 kg Clinic BSA : 1.97 Body Mass Index : 32.14 kg/m2 LISA HERNANDEZ - 08/10/2014 9:46 WEIGHT TRAINER General Info Languages : Swedish, Korean Is Patient Female and 13-50 no hysterectomy : No LISA HERNANDEZ - 08/10/2014 9:46 WEIGHT TRAINER Subjective Pain Symptoms : No LISA HERNANDEZ - 08/10/2014 9:46 WEIGHT TRAINER Dependent Habits Tobacco Use/Currently Using : No Exposure to Tobacco Smoke : Patient smokes Smoking Status : Former smoker LISA HERNANDEZ - 08/10/2014 9:46 WEIGHT TRAINER Tobacco Use Grid Type : Cigarettes Cigarette Use Packs/Day : 0.5 LISA HERNANDEZ - 08/10/2014 9:46 WEIGHT TRAINER ID Screen Travel Within Last 21 Days : No Contact with someone with Ebola : No LISA HERNANDEZ - 08/10/2014 9:46 WEIGHT TRAINER [facility] Document Id: [id number] WEIGHT TRAINER!29 HT TRAINER documented in this encounter Plan of Treatment Not on filedocumented as of this encounter Visit Diagnoses Not on filedocumented in this encounter
--- OUTSIDE RECORDS SUMMARY | 2022-05-05 14:49 | XMS_ITS | Encounter Summary ---
:1990 Author Organization [facility] Address [address] [place] [address] Care Team Providers Name Role Phone Unavailable Primary Care Provider Unavailable Encounter Details Date Type Department Care Team Description 03/16/2015 Hospital Encounter [facility] Rik Mahajan M.D. [address] [place] [phone] (Wo rk) Social History Tobacco Use Types Packs/Day Years Used Date Smoking Tobacco: Never Assessed Sex Assigned at Date Recorded Not on file documented as of this encounter Plan of Treatment Not on filedocumented as of this encounter Visit Diagnoses Not on filedocumented in this encounter
--- OUTSIDE RECORDS SUMMARY | 2022-05-05 14:49 | XMS_ITS | Encounter Summary ---
:1990 Author Organization [facility] Address [address] [place] [address] Care Team Providers Name Role Phone Unavailable Primary Care Provider Unavailable Encounter Details Date Type Department Care Team Description 08/03/2014 Hospital Encounter HX NO MAPPING Shamar Gannon M.D. [address] [place], [place] [phone] (Wo rk) Social History Tobacco Use Types Packs/Day Years Used Date Smoking Tobacco: Never Assessed Sex Assigned at Date Recorded Not on file documented as of this encounter Miscellaneous Notes Miscellaneous - Levi Mcarthur Provider Ser - 08/03/2014 11:59 PM MANAGER MACHINE Coding Summary-Paper Based CODING DATE: 08/10/2014 FINAL [facility] STATUS: * Discharged to Home or Self Care PAYOR: Medicaid ADMIT DX: REASON FOR VISIT DX: FINAL DX: PRINCIPAL: V22.0 care, normal, first SECONDARY: PROCEDURES DOCTOR NAME DATE NOTE: The code number assigned matches the documented diagnosis and / or procedure in the patient's chart. However, the narrative phrase printed from the coding software may appear abbreviated, or result in slightly different terminology. Coded By: NICK PARKS Date Saved: 08/10/2014 10:30 pm Source: [facility] POWERCHART Document Id: [id number] documented in this encounter Plan of Treatment Not on filedocumented as of this encounter Visit Diagnoses Not on filedocumented in this encounter
--- OUTSIDE RECORDS SUMMARY | 2022-05-05 14:50 | XMS_ITS | Encounter Summary ---
:1990 Author Organization [facility] Address [address] [place] [address] Care Team Providers Name Role Phone Needs Pcp, Assignment Primary Care Provider Reason for Visit Reason Comments Depression Registry Call 1 Encounter Details Date Type Department Care Team Description 08/03/2017 Telephone [facility] Pcp, Depress ion Registry Medicine Assignment Call [address] [place] [address] [phone] Social History Tobacco Use Types Packs/Day Years Used Date Smoking Tobacco: Every Day Cigarettes 0.3 Sex Assigned at Date Recorded Not on file documented as of this encounter Nursing Notes Nilsa Ayala CMA - 08/03/2017 1:35 PM CST Talked with patient and she states that she is not coming to [facility] anymore as she has moved away. L TUNER documented in this encounter Plan of Treatment Not on filedocumented as of this encounter Visit Diagnoses Not on filedocumented in this encounter Care Teams Maintenance And Utilities Supervisor Relationship Specialty Start Date End Date Needs Pcp, Assignment PCP - General 11/12/16 [place] [address] documented as of this encounter
--- OUTSIDE RECORDS SUMMARY | 2022-05-05 14:50 | XMS_ITS | Encounter Summary ---
:1990 Author Organization [facility] Address [address] [place] [address] Care Team Providers Name Role Phone Unavailable Primary Care Provider Unavailable Encounter Details Date Type Department Care Team Description 11/22/2010 PN Conversion Only [employer] [address] [place] [address] Social History Tobacco Use Types Packs/Day Years Used Date Smoking Tobacco: Never Assessed Sex Assigned at Date Recorded Not on file documented as of this encounter Plan of Treatment Not on filedocumented as of this encounter Visit Diagnoses Not on filedocumented in this encounter
--- OUTSIDE RECORDS SUMMARY | 2022-05-05 14:50 | XMS_ITS | Encounter Summary ---
:1990 Author Organization [facility] Address [address] [place] [address] Care Team Providers Name Role Phone Unavailable Primary Care Provider Unavailable Encounter Details Date Type Department Care Team Description 07/16/2010 Procedure Visit [facility] Hardeep Granados [address] [facility] [place] [address] [address] [facility] [phone] [place] [address] (Wo rk) Social History Tobacco Use Types Packs/Day Years Used Date Smoking Tobacco: Never Assessed Sex Assigned at Date Recorded Not on file documented as of this encounter Plan of Treatment Not on filedocumented as of this encounter Visit Diagnoses Not on filedocumented in this encounter
--- OUTSIDE RECORDS SUMMARY | 2022-05-05 14:50 | XMS_ITS | Encounter Summary ---
:1990 Author Organization [facility] Address [address] [place] [address] Care Team Providers Name Role Phone Unavailable Primary Care Provider Unavailable Encounter Details Date Type Department Care Team Description 09/07/2008 Hospital Encounter HX [facility] Ginny Han M.D. [address] [place], [place] [address] Social History Tobacco Use Types Packs/Day Years Used Date Smoking Tobacco: Never Assessed Sex Assigned at Date Recorded Not on file documented as of this encounter Plan of Treatment Not on filedocumented as of this encounter Visit Diagnoses Not on filedocumented in this encounter
--- OUTSIDE RECORDS SUMMARY | 2022-05-05 14:50 | XMS_ITS | Encounter Summary ---
:1990 Author Organization [facility] Address [address] [place] [address] Care Team Providers Name Role Phone Unavailable Primary Care Provider Unavailable Encounter Details Date Type Department Care Team Description 06/25/2010 Office Visit [facility] Elvin Christian [address] [place] [address] Social History Tobacco Use Types Packs/Day Years Used Date Smoking Tobacco: Never Assessed Sex Assigned at Date Recorded Not on file documented as of this encounter Plan of Treatment Not on filedocumented as of this encounter Visit Diagnoses Not on filedocumented in this encounter
--- OUTSIDE RECORDS SUMMARY | 2022-05-05 14:50 | XMS_ITS | Encounter Summary ---
:1990 Author Organization [facility] Address [address] [place] [address] Care Team Providers Name Role Phone Unavailable Primary Care Provider Unavailable Encounter Details Date Type Department Care Team Description 01/12/2012 Hospital Encounter HX [facility] Magy Figueroa M.D. [address] [place], [place] [address] (Wo rk) Social History Tobacco Use Types Packs/Day Years Used Date Smoking Tobacco: Never Assessed Sex Assigned at Date Recorded Not on file documented as of this encounter Last Filed Vital Signs Vital Sign Reading Time Taken Comments Blood Pressure 116/66 01/12/2012 11:53 AM CDT Pulse 76 01/12/2012 11:53 AM CDT Temperature - - Respiratory Rate 16 01/12/2012 11:53 AM CDT Oxygen Saturation - - Inhaled Oxygen Concentration - - Weight 59.9 kg (132 lb 0.9 oz) 01/12/2012 11:53 AM CDT Height - - Body Mass Index - - documented in this encounter Progress Notes Amparo Figueroa M.D. - 01/12/2012 12:00 AM CDT [id number] CHIEF COMPLAINT/REASON FOR VISIT Acute urinary frequency HISTORY OF PRESENT ILLNESS Ms. Aguilar is a 21-year-old white female who, for the past 2 to 3 days has been having frequency, some dysuria, mostly low pelvic cramping after she urinates. She has had such intense frequency that she will be double-voiding. Often in small amounts. She is not having any fever, she is not having upper back pain, she is having some lower back pain. She had noticed a little bit of vaginal redness. Please see urinalysis. We discussed that if treating her UTI does not also take care of this issue that she would be seeing her doctor. As well warned her if her urine culture is negative despite her symptoms and the UA results that she needs to see her doctor to be examined and consider STD testing. CURRENT MEDICATIONS Please see today's EMR ALLERGIES Please see today's EMR VITAL SIGNS Please see today's EMR PHYSICAL EXAM BACK: No CVA tenderness. LABORATORY: Urinalysis is very positive, greater than 50 WBCs, a few RBCs and large amount of bacteria. This urinalysis matches her symptoms. She denies having a period currently; she is on Depo-Provera with no possibility of being . IMPRESSION/REPORT/PLAN Acute cystitis. PLAN: Macrobid 100 mg twice daily for 7 days. Pyridium for pain. Teaching given. Push fluids. Full counseling given that if patient's urine culture does return negative, she is to see her doctor. All questions answered. Amparo Figueroa M.D. klj Electronically Signed By: AMPARO FIGUEROA MD On: 01/15/2012 08:26 PM Source: [facility] [id number] Document Id: [id number] documented in this encounter Miscellaneous Notes Miscellaneous - Amparo Figueroa M.D. - 01/14/2012 10:23 AM CDT Results Notification From: AMPARO FIGUEROA MD To: [facility] Providers Sent: 01/14/2012 10:23:15 CDT ! Show up: 01/14/2012 15:23:15 [facility] Subject: Results Notification Actions: Notify patient of results Source: [facility] POWERCHART Document Id: [id number] Electronically signed by [facility] Dictaphone Technician [id number] at 11/08/2016 4:34 PM CDT Amparo Castle M.D. - 01/12/2012 12:52 PM CDT Ambulatory Patient Summary [address] [address] Visit Information Name: PAYAL AGUILARJUAN RILEY Current Date: 01/12/2012 12:52:28 Physicians Attending Provider: AMPARO FIGUEROA MD Primary Care Provider: PCP, UNASSIGNED Your Medications Here is a list of your medications. It is important to take your medications as directed. Use a pillbox or chart to help remind you to take your medications. Please let your doctor or nurse know if you have problems taking your medications. Medication/Strength Dose Route Frequency Indications/Special Instructions/Comments phenazopyridine (Pyridium 200 mg oral tablet) 200 mg Oral three times a day for 3 Days nitrofurantoin (Macrobid 100 mg oral capsule) 100 mg Oral two times a day for 7 Days medroxyPROGESTERone (Depo-Provera Contraceptive) 150 mg Intramuscular once calcium-vitamin D (calcium (as carbonate)-vitamin D 500 mg-400 intl units oral tablet, chewable) 1 tab(s) Chewed two times a day Attention: If you have any medications at home that are not on this list, DO NOT take them until youcontact your provider for clarification. Your Allergies & Intolerances Substance Reaction Symptoms Category Comments No Known Allergies Drug Your Problem List Problem Status Onset Comments No Problems found Your Upcoming Appointments Date Time Location Reason Provider No Appointments found Your Goals/Additional instructions: Source: [facility] POWERCHART Document Id: [id number] Axel - Amparo Figueroa M.D. - 01/12/2012 12:52 PM CDT Ambulatory Depart Summary [address] [address] Visit Information Name: CELE AGUILAR Visit Date: 01/12/2012 12:52:27 Attending Provider: AMPARO FIGUEROA MD Primary Care Provider: PCP, UNASSIGNED CELE AGUILAR has been given the following list of medications: Your Medications It is important to take your medications as directed. Use a pill box or chart to help remind you to take your medications. Please let your doctor or nurse know if you have problems taking your medications. Medication/Strength Dose Route Frequency Indications/Special Instructions/Comments phenazopyridine (Pyridium 200 mg oral tablet) 200 mg Oral three times a day for 3 Days nitrofurantoin (Macrobid 100 mg oral capsule) 100 mg Oral two times a day for 7 Days medroxyPROGESTERone (Depo-Provera Contraceptive) 150 mg Intramuscular once calcium-vitamin D (calcium (as carbonate)-vitamin D 500 mg-400 intl units oral tablet, chewable) 1 tab(s) Chewed two times a day Attention: If you have any medications at home that are not on this list, DO NOT take them until youcontact your provider for clarification. Additional Information: Source: [facility] POWERCHART Document Id: [id number] Miscellaneous - Rashawn Sanches L.P.N. - 01/12/2012 11:53 AM CDT Adult Director Of Digital Marketing Intake/History Adult Director Of Digital Marketing Intake/History Entered On: 01/12/2012 11:57 CDT Performed On: 01/12/2012 11:53 CDT by RASHAWN SANCHES Intake Chief Complaint : Pt is having frequency and pain with urination. Pt also states that she has some irritation in Vaginal area. Onset of Symptoms : x 2-3 days Temperature Oral : 36.8C(Converted to: 98.2DegF) Peripheral Pulse Rate : 76/min Respiratory Rate : 16/min Systolic Blood Pressure : 116mmHg Diastolic Blood Pressure : 66mmHg NIBP Mean : 83mmHg BP Location : Right upper extremity Blood Pressure Cuff Size : Regular Actual Weight : 59.9kg(Converted to: 132lb 1oz) Dosing Weight Clinic : 59.90kg RASHAWN SANCHES - 01/12/2012 11:53 CDT General Info Information Given By : Patient Preferred Communication Mode : Verbal Languages : Maltese, Portuguese RASHAWN SANCHES - 01/12/2012 11:53 CDT Subjective Pain Symptoms : Yes RASHAWN SANCHES - 01/12/2012 11:53 CDT Pain Pain Assessment Grid Pain 1 Location : Bladder VERÓNICAMICHELLERASHAWN - 01/12/2012 11:53 CDT Dependent Habits Tobacco Use/Currently Using : Yes Exposure to Tobacco Smoke : Patient smokes Smoking Status : Current every day smoker VERÓNICA RASHAWN - 01/12/2012 11:53 CDT Allergy Allergies (Active) NKA Estimated Onset Date: Unspecified ; Created By: RASHAWN SANCHES; Reaction Status: Active ; Category: Drug ; Substance: NKA ; Type: Allergy ; Updated By: RASHAWN SANCHES; Reviewed Date: 01/12/2012 11:51 CDT Source: [facility] Smart AdventureCHART Document Id: [id number] documented in this encounter Plan of Treatment Not on filedocumented as of this encounter Procedures Procedure Name Priority Date/Time Associated Comments Diagnosis URINALYSIS WITH Routine 01/12/2012 12:16 Results for this MICROSCOPIC PM CDT procedure are i n the results section. BACTERIAL CULTURE, Routine 01/12/2012 12:16 Resul ts for this AEROBIC, URINE PM CDT procedure are in the results section. documented in this encounter Results (ABNORMAL) Urinalysis, Complete, Includes Microscopic (01/12/2012 12:16 PM CDT) [facility] Method Time Signature Source Clean Void POWERCHART Urine HXUr Color STRAW POWERCHART Glucose Negative Negative POWERCHART HXBILIRUBIN Negative Negative POWERCHART Ketones, QL(U) Negative Negative POWERCHART Specific 1.020 >=1.030 POWERCHART [place], POCT, U pH, POCT, Urine 6.0 8.5 POWERCHART Protein, Ur, Dip Negative Negative POWERCHART Urobilinogen 0.2 1.0 POWERCHART HXNITRITE Positive (A) Negative POWERCHART HXBLOOD Trace (A) Negative POWERCHART Leukocyte Large (A) Negative POWERCHART Esterase HXUr WBC >50 (A) 0 - 5 POWERCHART Red Blood Cell 11-20 0 - 3 POWERCHART Clump, Urine HXUr Bacteria Many (A) Negative POWERCHART HXUr Epithelial Moderate Negative POWERCHART HX MUCOUS Negative Negative POWERCHART THREADS HX Ur Casts None Seen None Seen POWERCHART Crystals None Seen None Seen POWERCHART Specimen (Source) Anatomical Collection Method Collection Time Re ceived Time Location / / Volume Laterality Urine 01/12/2012 12:16 PM CDT Amparo Figueroa M.D. LAB URINE ORDERABLES Performing Organization Address City/State/ZIP Code Phon e Number POWERCHART (ABNORMAL) Bacterial Culture, Aerobic, Urine (01/12/2012 12:16 PM CDT) Analysis Performed At Patho logist Time Signature Bacterial EC 4 POWERCHART Culture, (POSITIVE) Aerobic, Urine Comment: Streptococcus agalactiae (Group B Strep) isolates that are Sensitive to Erythromycin should be treated as Resist ant, and Erythromycin should NOT be used as a drug of choice for treatment per [employer] Technical Bulletin. HXPre GNR POWERCHART Comment: >100,000 cfu/mL Gram Negative Rods Identification and susceptibility to fol low. HXFinal EC POWERCHART Comment: >100,000 cfu/mL Escherichia col i Specimen Anatomical Collection Method Collection Time Receive d Time (Source) Location / / Volume Laterality Urine 01/12/2012 12:16 01/12/2012 PM CDT 12:16 PM CDT Organism Antibiotic Method Susceptibility Escherichia coli Amoxicillin + Clavulanate SUSCEPTIBILITY, NIKITA 4 : Susceptible (MCG/ML) Escherichia coli Ampicillin SUSCEPTIBILITY, NIKITA 8: Resistan t (MCG/ML) Escherichia coli Aztreonam SUSCEPTIBILITY, NIKITA <=1: Suscep tible (MCG/ML) Escherichia coli Cefazolin SUSCEPTIBILITY, NIKITA <=4: Suscep tible (MCG/ML) Escherichia coli Cefepime SUSCEPTIBILITY, NIKITA <=1: Suscep tible (MCG/ML) Escherichia coli Cefoxitin SUSCEPTIBILITY, NIKITA <=4: Suscep tible (MCG/ML) Escherichia coli Ceftazidime SUSCEPTIBILITY, NIKITA <=1: Suscep tible (MCG/ML) Escherichia coli Ceftriaxone SUSCEPTIBILITY, NIKITA <=1: Suscep tible (MCG/ML) Escherichia coli Cefuroxime/Axetil SUSCEPTIBILITY, NIKITA 4: Suscep tible (MCG/ML) Escherichia coli Cefuroxime SUSCEPTIBILITY, NIKITA 4: Suscepti ble (MCG/ML) Escherichia coli Cephalothin SUSCEPTIBILITY, NIKITA >=64: Resis tant (MCG/ML) Escherichia coli Ciprofloxacin SUSCEPTIBILITY, NIKITA <=0.25: Linda ceptible (MCG/ML) Escherichia coli Gentamicin SUSCEPTIBILITY, NIKITA <=1: Suscep tible (MCG/ML) Escherichia coli Levofloxacin SUSCEPTIBILITY, NIKITA <=0.12: Linda ceptible (MCG/ML) Escherichia coli Nitrofurantoin SUSCEPTIBILITY, NIKITA 32: Suscept ible (MCG/ML) Escherichia coli Norfloxacin SUSCEPTIBILITY, NIKITA <=0.5: Susc eptible (MCG/ML) Escherichia coli Trimethoprim + SUSCEPTIBILITY, NIKITA <=20: Susce ptible Sulfamethoxazole (MCG/ML) Escherichia coli Tetracycline SUSCEPTIBILITY, NIKITA <=1: Suscep tible (MCG/ML) Escherichia coli Tobramycin SUSCEPTIBILITY, NIKITA <=1: Suscep tible (MCG/ML) Amparo Figueroa M.D. LAB MICROBIOLOGY - GENERAL O RDERABLES Performing Organization Address City/State/ZIP Code Phon e Number POWERCHART documented in this encounter Visit Diagnoses Not on filedocumented in this encounter
--- OUTSIDE RECORDS SUMMARY | 2022-05-05 14:50 | XMS_ITS | Encounter Summary ---
:1990 Author Organization [facility] Address [address] [place] [address] Care Team Providers Name Role Phone Unavailable Primary Care Provider Unavailable Encounter Details Date Type Department Care Team Description 07/15/2007 Hospital Encounter [facility]X [facility] Alice Hairston, P.ALupis [address] [place] [address] (Wo rk) Social History Tobacco Use Types Packs/Day Years Used Date Smoking Tobacco: Never Assessed Sex Assigned at Date Recorded Not on file documented as of this encounter Plan of Treatment Not on filedocumented as of this encounter Visit Diagnoses Not on filedocumented in this encounter
--- OUTSIDE RECORDS SUMMARY | 2022-05-05 14:50 | XMS_ITS | Encounter Summary ---
:1990 Author Organization [facility] Address [address] [place] [address] Care Team Providers Name Role Phone Unavailable Primary Care Provider Unavailable Encounter Details Date Type Department Care Team Description 11/25/2010 Office Visit [facility] [address] Kirk Gonzalez MD Ophthalmology [address] [place] [address] [place] [address] [phone] Social History Tobacco Use Types Packs/Day Years Used Date Smoking Tobacco: Never Assessed Sex Assigned at Date Recorded Not on file documented as of this encounter Plan of Treatment Not on filedocumented as of this encounter Visit Diagnoses Not on filedocumented in this encounter
--- OUTSIDE RECORDS SUMMARY | 2022-05-05 14:50 | XMS_ITS | Encounter Summary ---
:1990 Author Organization [facility] Address [address] [place] [address] Care Team Providers Name Role Phone Unavailable Primary Care Provider Unavailable Encounter Details Date Type Department Care Team Description 09/04/2009 Hospital Encounter HX [facility] [place] [id number] Social History Tobacco Use Types Packs/Day Years Used Date Smoking Tobacco: Never Assessed Sex Assigned at Date Recorded Not on file documented as of this encounter H&P Notes Hesham Duenas M.D. - 09/04/2009 8:28 PM CDT Report Patient: CELE AGUILAR Clinical Report - Physicians/Mid Levels [facility] VisitID: [id number] [address] [place] [id number] 18y, F Registration Date/Time: 09/04/2009 20:36 Time Seen: 830 PM. Arrived- By private vehicle. Historian- patient. HISTORY OF PRESENT ILLNESS Chief Complaint: frequency of urination. This started 2 weeks ago and still present. The symptoms are described as mild. The patient has had mild burning pain with urination (for 2 weeks - still present). It has occurred during urination and has been associated with urgency and frequency. No abdominal pain, pelvic pain, vaginal pain, low back pain or flank pain. No missed period (s), irregular periods, abnormal bleeding, vaginal discharge or vaginal itching. No genital lesions. Last normal menstrual period- Jul 252009. 0. Para 0. Abortions 0. Sexual history - sexually active. Sexually active. Does not use control measures. Denies current . Not receiving care. The patient has had similar symptoms previously. Not recently seen/assessed (denies). REVIEW OF SYSTEMS No nausea, vomiting, diarrhea, black stools or headache. No fever, chills, anorexia, eye discomfort or sore throat. No cough, difficulty breathing, chest pain, skin rash or enlarged lymph nodes. No joint pain. All systems otherwise negative, except as recorded above. PAST HISTORY Negative. Medications: The patient's medications have been reviewed (patient on amoxicillin for eye infection). Allergies: No known drug allergies. SOCIAL HISTORY Smoker (2cigarettes par day). ADDITIONAL NOTES The nursing notes have been reviewed. PHYSICAL EXAM Appearance: Alert. No acute distress. HEENT: Normal external inspection. ENT: Pharynx normal. CVS: Heart sounds normal. Respiratory: No respiratory distress. No respiratory distress. Breath sounds normal. Chest nontender. Abdomen: Soft and nontender. Bowel sounds normal. No organomegaly. No mass. No abdominal tenderness, rebound tenderness, distention, mass present or organomegaly. The bowel sounds are not abnormal. Back: Normal external inspection. No CVA tenderness. Neuro: Oriented X 3. No alteration in mental status. Mood/affect normal. No motor deficit. No sensory deficit. LABS, X-RAYS, AND EKG Laboratory Tests: Laboratory tests have been ordered, with results reviewed and considered in the medical decision making process (reviewed the ua and pregnancytests both normal). WARNING Laboratory results appearing in this window have not been validated. Do not use in your clinical evaluation. Results appearing here have not yet passed review and should not be incorporated into the clinical record. WARNING Laboratory results appearing in this window have not been validated. Do not use in your clinical evaluation. Results appearing here have not yet passed review and should not be incorporated into the clinical record. WARNING Laboratory results appearing in this window have not been validated. Do not use in your clinical evaluation. Results appearing here have not yet passed review and should not be incorporated into the clinical record. WARNING Laboratory results appearing in this window have not been validated. Do not use in your clinical evaluation. Results appearing here have not yet passed review and should not be incorporated into the clinical record. WARNING Laboratory results appearing in this window have not been validated. Do not use in your clinical evaluation. Results appearing here have not yet passed review and should not be incorporated into the clinical record. . PROGRESS AND PROCEDURES Patient/family counseled. Disposition: Condition: good and stable. Discharged in stable condition (20:50). CLINICAL IMPRESSION Cystitis. Dysuria. INSTRUCTIONS Drink plenty of fluids. (stop smoking.ask your doctor to check your urine culture results or call back in 72 hours to see if further treatment is needed.). Warnings: GENERAL WARNINGS: Return or contact your physician immediately if your condition worsens or changes unexpectedly, if not improving as expected, or if other problems arise. Specifically return if pain, vomiting or fever persists or fails to resolve. OTC Medications: Take ibuprofen (Advil, Nuprin, etc.) according to label instructions. Available over the counter. Follow-up: Go to your doctor in 2 days for results of cultures. Follow-up after tests with your doctor. If unable to obtain follow-up, call the emergency department. Return to the emergency department if not better. Follow up with your doctor in two days. Understanding of the discharge instructions verbalized by patient. (Electronically signed by Hesham Diaz MD 09/04/2009 20:55) Source: [facility] BOWLESCHXTRANSXSYS Document Id: [id number] documented in this encounter Plan of Treatment Not on filedocumented as of this encounter Visit Diagnoses Not on filedocumented in this encounter
--- OUTSIDE RECORDS SUMMARY | 2022-05-05 14:50 | XMS_ITS | Encounter Summary ---
:1990 Author Organization [facility] Address [address] [place] [address] Care Team Providers Name Role Phone Unavailable Primary Care Provider Unavailable Reason for Visit Reason Comments Other Encounter Details Date Type Department Care Team Description 07/26/2010 Telephone [facility] [address] p[address]mology [place], Message Other [address] [place] [address] [place], [place] [id number] Social History Tobacco Use Types Packs/Day Years Used Date Smoking Tobacco: Never Assessed Sex Assigned at Date Recorded Not on file documented as of this encounter [facility], Message - 07/26/2010 4:34 PM CST pts right eyelid cyst has gotten harder and heavier - is draining - pt very irritated [phone] Created on 26Jul2010 4:34pm by FREDDY VAIL On 26Jul2010 4:41pm SUZY SWENSON wrote: wants chalazion excision before aug 05. has gotten harder and heavier. please call mom. Dot Ware. [phone] On 29Jul2010 9:26am OSVALDO ROMANO wrote: [facility] Acknowledged by OSVALDO ROMANO on 9:26am ATTENDANT documented in this encounter Plan of Treatment Not on filedocumented as of this encounter Visit Diagnoses Not on filedocumented in this encounter
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
--- OUTSIDE RECORDS SUMMARY | 2022-05-05 14:50 | XMS_ITS | Encounter Summary ---
:1990 [facility] Address [address] [place] [address] Care Team Providers Name Role Phone Unavailable Primary Care Provider Unavailable Reason for Visit Reason Comments DEPRESSION Encounter Details Date Type Department Care Team Description 07/10/2016 Office Visit James Dominguez Family Kaye Eaton Anxi ety (Primary Dx); Medicine Depression, major, single episode, moder ate ([facility]) [address] [facility] [address], [place] [address] [phone] Social History Tobacco Use Types Packs/Day Years Used Date Smoking Tobacco: Every Day Cigarettes 0.3 Sex Assigned at Date Recorded Not on file documented as of this encounter Last Filed Vital Signs Vital Sign Reading Time Taken Comments Blood Pressure 124/64 07/10/2016 2:32 PM NAIL MAKER Pulse 68 07/10/2016 2:32 PM NAIL MAKER Temperature - - Respiratory Rate - - Oxygen Saturation - - Inhaled Oxygen Concentration - - Weight 65.8 kg (145 lb) 07/10/2016 2:32 PM NAIL MAKER Height - - Body Mass Index - - documented in this encounter Patient Instructions Patient InstructionsKaye Eaton MD - 07/10/2016 2:55 PM CST Take 1 tab of the 37.5 mg tabs daily for 8 days. Take with food. Then take 2 tabs of the 37.5 mg tabs (75 mg) until you run out. Then start taking 1 tab of the 75 mg tabs. Follow up in 1 month. Sooner if needed. MAKER documented in this encounter Progress Notes Will, Kaye Toro MD - 07/10/2016 2:36 PM CST CHIEF COMPLAINT: Chief Complaint Patient presents with ??? DEPRESSION SUBJECTIVE : Cele Aguilar is a 25 y.o. female patient who presents for evaluation of a mood disorder. Mood disorder: She is concerned about her mood, as is her mother who encouraged her to make this visit. She notes that she will feel happy, and then all of a sudden she will be pissed off. She notes that she is easily agitated, and will snap at her son or react in a way towards something that he or other do that is not the way that she wants to react. She feels bad about it afterwards. She is concerned about possible bipolar disorder. There is no family history of bipolar disorder. She does report that she sometimes feels like she doesn't need a lot of sleep, but denies other symptoms of walker. Of note, she has been seen for her mood in the past, and took Zoloft 100 mg for about 8 months, stopping 1 month ago. She felt like it was helpful for her depression symptoms, and she was sleeping muchbetter, not having difficulties falling asleep, and getting closer to 8 hours per night. She denies manic symptoms while on it. However, she doesn't feel like it was particularly helpful for her anxiety. As we were talking about options for medication treatments, she did also mention that she had been on Prozac, but had too many side effects from it. Patient denies current suicidal and homicidal ideation. PHQ9 Scores: PHQ-9 07/10/2016 PHQ-9 Score Total 17 Q1: Loss of Int/Pleas ++ Q2: Depressed mood ++ Q3: Sleep problems +++ Q4: Tired/Low Energy +++ Q5: Appetite change +++ Q6: Feelings of failure + Q7: Concentration Prob + Q8: Slow or Restless ++ Q9: Thought Self Harm - TRACY 7 Scores: TRACY-7 07/10/2016 Feeling nervous 3 Can't stop worrying 3 Worrying too much 2 Trouble relaxing 3 Restlessness 3 Easily annoyed 3 Feeling afraid 1 Total score 18 Medications: Reviewed in Epic. No current medications. Adverse Drug Allergies: No Known Allergies Social History: Social History Substance Use Topics ??? Smoking status: Current Every Day Smoker -- 0.25 packs/day Types: Cigarettes ??? Smokeless tobacco: None ??? Alcohol Use: None Social History Social History Narrative OBJECTIVE: BP 124/64 mmHg Pulse 68 Wt 145 lb (65.772 kg) General Appearance: Alert, cooperative, no distress, appropriate for age. Dressed appropriately. Well groomed. Neurologic: Gait normal Psychiatric: Alert and oriented, appropriate affect., Behavior: normal, Speech: appropriate quality,quantity and organization of sentences, Thought content: normal and Affect: flat ASSESSMENT/PLAN: Depression/anxiety: It is possible that her symptoms are due to bipolar disorder, but she does not endorse many symptoms of walker. What caused her to worry about bipolar is that she easily snaps and gets easily agitated, which I think is more likely related to her depression. -- Offered a referral to psychiatry for more formal evaluation for bipolar disorder, but she declined at this time. -- Offered referral to psychology for behavioral treatment, but she declined at this time. -- Will start Effexor 37.5 mg daily x 8 days, then increase to 75 mg daily. Advised to watch for symptoms of walker, and f/u if this occurs, as if she does have bipolar disorder, an antidepressant couldworsen those symptoms. -- Follow up in 1 month for recheck. Sooner if needed. Kaye Eaton MD MAKER documented in this encounter Plan of Treatment Not on filedocumented as of this encounter Visit Diagnoses Diagnosis Anxiety ([facility]) - Primary Anxiety state, unspecified Depression, major, single episode, moder ate ([facility]) Major depressive disorder, single episod e, moderate documented in this encounter
--- OUTSIDE RECORDS SUMMARY | 2022-05-05 14:50 | XMS_ITS | Encounter Summary ---
:1990 Author Organization [facility] Address [address] [place] [address] Care Team Providers Name Role Phone Unavailable Primary Care Provider Unavailable Encounter Details Date Type Department Care Team Description 10/10/2010 PN Conversion Only CONVERSION CONVERSION Social History Tobacco Use Types Packs/Day Years Used Date Smoking Tobacco: Never Assessed Sex Assigned at Date Recorded Not on file documented as of this encounter Plan of Treatment Not on filedocumented as of this encounter Visit Diagnoses Not on filedocumented in this encounter
--- OUTSIDE RECORDS SUMMARY | 2022-05-05 14:50 | XMS_ITS | Encounter Summary ---
:1990 Author Organization [facility] Address [address] [place] [address] Care Team Providers Name Role Phone Needs Pcp, Assignment Primary Care Provider Reason for Visit Reason Comments Clinician Finder Team Encounter Details Date Type Department Care Team Description 11/18/2017 Telephone CODING DEPT ONLY 5050 Needs Pcp, Clinic hailee Finder Team FAMILY [facility]ICINE Assignment [place], [place] [id number] Social History Tobacco Use Types Packs/Day Years Used Date Smoking Tobacco: Every Day Cigarettes 0.3 Sex Assigned at Date Recorded Not on file documented as of this encounter Plan of Treatment Not on filedocumented as of this encounter Visit Diagnoses Not on filedocumented in this encounter Care Teams Commercial Center Manager Relationship Specialty Start Date End Date Needs Pcp, Assignment PCP - General 11/12/16 [place] [address] documented as of this encounter
--- OUTSIDE RECORDS SUMMARY | 2022-05-05 14:50 | XMS_ITS | Encounter Summary ---
:1990 Author Organization [facility] Address [address] [place] [address] Care Team Providers Name Role Phone Unavailable Primary Care Provider Unavailable Encounter Details Date Type Department Care Team Description 07/27/2002 Hospital Encounter HX [facility] Jasbir Chambers M.D. [address] [place] [phone] (Wo rk) Social History Tobacco Use Types Packs/Day Years Used Date Smoking Tobacco: Never Assessed Sex Assigned at Date Recorded Not on file documented as of this encounter Plan of Treatment Not on filedocumented as of this encounter Visit Diagnoses Not on filedocumented in this encounter
--- OUTSIDE RECORDS SUMMARY | 2022-05-05 14:50 | XMS_ITS | Clinical Summary ---
:1990 Author Organization [facility] Address [address] [place] [address] Care Team Providers Name Role Phone Needs Pcp, Assignment Primary Care Provider Source Comments You are receiving this document as you are listed as the primary care provider,follow-up provider, or the patient has been referred to you for consultation.This is in compliance with the Medicare and Medicaid EHR Incentive Program,which states Providers who transition their patient to another setting of careor provider of care or refers their patient to another provider of care shouldprovide summarycare record for each transition of care or referral. [employer] Allergies No known active allergies Medications Medication Sig Dispensed Refills Start Date End Date Status Multiple Vitamins-Iron 0 Active (MULTIVITAMIN/IRON OR) venlafaxine (EFFEXORXR) Take 1 Cap by 30 Cap 0 07/10/2016 Active 75 MG 24 hour release mouth daily. capsule Active Problems No known active problems Immunizations Name Administration Dates Next Due DTaP 01/17/1998, 12/13/1995, 10/10/1994, 04/03/1993, 1992 HepB Ped/Adol (0-18 yrs) 06/12/2005, 01/14/1996, 12/13/1995 Hib, Unspecified Formulation 01/14/1996, 12/13/1995 IPV (Polio) 01/17/1998, 12/13/1995, 10/10/1994, 04/03/1993, 1992 MMR 01/17/1998, 03/04/1993 Meningococcal MCV4, Unspecified 08/29/2014 Formulation Td 01/08/2005 Td (7+ yrs) 02/18/2012 Social History Tobacco Use Types Packs/Day Years Used Date Smoking Tobacco: Every Day Cigarettes 0.3 Sex Assigned at Date Recorded Not on file Last Filed Vital Signs Vital Sign Reading Time Taken Comments Blood Pressure 124/64 07/10/2016 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 Pulse 68 07/10/2016 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 Temperature 36.8 ??C (98.2 ??F) 06/13/2010 3:04 PM 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 C: 36 .8 C Respiratory Rate 16 06/13/2010 3:04 PM 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 Oxygen Saturation - - Inhaled Oxygen Concentration - - Weight 65.8 kg (145 lb) 07/10/2016 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 Height - - Body Mass Index - - Plan of Treatment Health Maintenance Due Date Last Done Comments Cervical Cancer Screening 1990 Due Hep C Screening (Preventive 1992 Services) COVID-19 Vaccine (#1) 04/02/1993 HIV Screening (Preventive 2008 Services) Adult Preventive Visit 2010 DTaP/Tdap/Td (6 - Tdap) 02/19/2012 02/18/2012, 01/08/2005, 01/17/1998, Additional history exists Influenza (#1) 2022 Zoster/Shingles (1 of 2) 2042 Hib Completed 01/14/1996, 12/13/1995 IPV (Polio) Completed 01/17/1998, 12/13/1995, 10/10/1994, Additional history exists HepB Completed 06/12/2005, 01/14/1996, 12/13/1995 MCV4 Aged Out 08/29/2014 No longer eligib le based on patient 's age to complete this topic HPV Vaccine Aged Out No longer eligib le based on patient 's age to complete this topic HepA Aged Out No longer eligib le based on patient 's age to complete this topic Pneumococcal Aged Out No longer eligib le based on patient 's age to complete this topic 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
--- OUTSIDE RECORDS SUMMARY | 2022-05-05 14:50 | XMS_ITS | Encounter Summary ---
:1990 Author Organization [facility] Address [address] [place] [address] Care Team Providers Name Role Phone Unavailable Primary Care Provider Unavailable Encounter Details Date Type Department Care Team Description 08/02/2010 Procedure Visit [facility] Jose Elias Robles MD [address] [facility] [address] [place] [address] [address] [phone] [place], [place] [phone] (Wo rk) Social History Tobacco Use Types Packs/Day Years Used Date Smoking Tobacco: Never Assessed Sex Assigned at Date Recorded Not on file documented as of this encounter Plan of Treatment Not on filedocumented as of this encounter Visit Diagnoses Not on filedocumented in this encounter
--- OUTSIDE RECORDS SUMMARY | 2022-05-05 14:50 | XMS_ITS | Encounter Summary ---
:1990 Author Organization [facility] Address [address] [place] [address] Care Team Providers Name Role Phone Unavailable Primary Care Provider Unavailable Encounter Details Date Type Department Care Team Description 02/12/2012 Hospital Encounter HX [facility] Ni Barrientos, Sushant AYOUB, C.N.P., SENIOR DATASTAGE DEVELOPER-C [address] [place] [address] [place], [place] [phone] (Wo rk) Social History Tobacco Use Types Packs/Day Years Used Date Smoking Tobacco: Never Assessed Sex Assigned at Date Recorded Not on file documented as of this encounter Last Filed Vital Signs Vital Sign Reading Time Taken Comments Blood Pressure 119/86 02/12/2012 9:30 PM CDT Pulse - - Temperature - - Respiratory Rate 20 02/12/2012 9:30 PM CDT Oxygen Saturation - - Inhaled Oxygen Concentration - - Weight - - Height 163 cm (5' 4.17) 02/12/2012 9:30 PM CDT Body Mass Index - - documented in this encounter Discharge Summaries Navin Chapman, RLupisNLupis - 02/12/2012 11:54 PM CDT ED Discharge Instructions [address] [address] or [phone] Name: CELE AGUILAR Date of : 1990 12:00 AM Visit Date: 02/12/2012 9:23 PM [facility] [address] [facility] [address] Primary Care Provider: PCP, UNASSIGNED IMPORTANT: [facility] in [place] would like to thank you for allowing us to assistyou with your healthcare needs. The following includes patient education materials and information regarding your injury/illness. Chief Complaint: Chest pain; CHEST PAIN ON & OFF Follow-Up Instructions: With: Address: When: UNASSIGNED PCP Within As Needed Comments: Patient Education Materials: [id number] CHEST WALL PAIN:COSTOCHONDRITIS The chest pain that you have had today is caused by Costochondritis. This condition is due to an inflammation of the cartilage joining the ribs to the breastbone. It is not caused by heart or lung problems. Although the exact cause for costochondritis is not known, it often occurs during times of emotional stress. It can be painful, but it is not dangerous. It usually disappears within one to two weeks, but may recur. Rarely, a more serious condition may cause symptoms similar to costochondritis; therefore, watch for the warning signs listed below. HOME CARE: 1. If you feel that emotional stress is a cause of your condition, try to identify sources of that stress. It may not be obvious! Learn ways to deal with the stress in your life such as regular exercise, muscle relaxation, meditation, or simply taking time out for yourself. For more information about this, consult your doctor or go to a local bookstore and review books and tapes available on the subject of stress reduction. 2. You may use acetaminophen (Tylenol) or ibuprofen (Motrin, Advil) to control pain, unless another pain medicine was prescribed. [ NOTE: If you have liver disease or ever had a stomach ulcer, talk with your doctor before using these medicines.] 3. The use of heat (hot wet compress or heating pad) with or without local analgesic creams (Deep Heat Rub, Clinton Riggins) will be helpful to reduce pain. FOLLOW UP with your doctor as directed or sooner if you do not start to improve within the next two days. [NOTE: If an X-ray or EKG (cardiogram) was made, another specialist will review it. You will be notified of any new findings that may affect your care.] GET PROMPT MEDICAL ATTENTION if any of the following occur: ?? A change in the type of pain: if it feels different, becomes more severe, lasts longer, or spreads into your shoulder, arm, neck, jaw or back ?? Shortness of breath or increased pain with breathing ?? Weakness, dizziness, or fainting ?? Cough with dark colored sputum (phlegm) or blood ?? Abdominal pain ?? Dark red or black stools Fever over 100.0?? F (37.8?? C) ?? [id number] [employer], [address] [place] [address]. All rights reserved. This information is not intended as a substitute for professional medical care. Always follow your healthcare professional's instructions. [id number] BREAST LUMP A lump was found in your breast today. Most breast lumps are not cancer. They represent normal changes in the breast tissue due to hormone variations. Some women may form lumps that are painful and tender; other lumps are painless. A common cause for a benign breast lump is Fibrocystic Breast Disease.In this condition, small cysts form and increase then decrease in size with your menstrual cycle. It is not possible to be certain of the cause of your lump without further evaluation. This could include another exam by your doctor or a federal judicial law clerk, a mammogram, an ultrasound or possibly a biopsy. HOME CARE: 1. If you are having breast pain, wear a well-fitted bra or sports bra for extra support. If you have breast pain at night, try wearing the bra during sleep. 2. Applying a warm compress (towel soaked in warm water) may give temporary pain relief. 3. Keep a log of whether the lump seems to be changing in size or tenderness with your period. This can help your doctor make the correct diagnosis. 4. If your doctor suspects you have fibrocystic breast disease, try the following for the next threemonths: o Reduce caffeine intake. Many women find that this helps. Caffeine is found in coffee, sodas, teas and chocolates. o Take Vitamin E capsules (not more than 600mg per day). FOLLOW UP with your doctor or as advised by our staff. Try to schedule the appointment for another breast exam 7-10 days after the start of your next period. GET PROMPT MEDICAL ATTENTION if any of the following occur: ?? Discharge from your nipple ?? Redness or swelling of the breast Visible changes in the skin of the nipple or breast ?? [id number] The [employer], [address] [place] [address]. All rights reserved. This information is not intended as a substitute for professional medical care. Always follow your healthcare professional's instructions. ED Tests and Procedures: Order Status Automated Diff-5 Part Completed Comprehensive Metabolic Panel Completed CBC (includes Auto Differential) Completed Magnesium Level Completed PT/INR Completed PTT Completed Troponin T Completed Lipase Level Completed XR Chest 2 Views Ordered EKG-Lab. InProcess Discharge Prescriptions & Home Medications: Medication/Strength Dose Route Frequency Indications/Special Instructions/Comments ibuprofen (Motrin 600 mg oral tablet) 600 mg Oral three times a day Take with food medroxyPROGESTERone (Depo-Provera Contraceptive) 150 mg Intramuscular once calcium-vitamin D (calcium (as carbonate)-vitamin D 500 mg-400 intl units oral tablet, chewable) 1 tab(s) Chewed two times a day ibuprofen (IBUPROFEN) Comment: FOLLOW LABEL DIRECTIONS Comment: Attention: If you have any medications at home that are not on this list, DO NOT take them until youcontact your provider for clarification. Medication Reconciliation: Reconciliation is a process of identifying the most accurate list of all medications a patient is taking - including name, dosage, frequency, and route - and using this list to provide to the patient information about how to take those medications. CELE AGUILAR or rakan has reviewed the home medications you have listed with us. Review the following instructions: You have NOT received any prescriptions and you have told us you are not currently taking any home medications You have NOT received any prescriptions. You have been provided a discharge medications list and you may CONTINUE taking your medications as previously prescribed by your regular providers. You have received the listed prescriptions and BEGIN all listed prescriptions as directed. Since you have listed no home medications, please check with your family doctor if you are taking any other medications. You have received the listed prescriptions and BEGIN all listed prescriptions as directed. Youhave been provided a discharge medications list and you may CONTINUE all home medications as previously prescribed by your regular providers. You have received the listed prescriptions and BEGIN all listed prescriptions as directed. Youhave been provided a discharge medications list. The following CHANGES have been made to your medication list; Otherwise, CONTINUE all home medications as previously prescribed by your regular provider IMPORTANT: We examined and treated you today on an emergency basis only. This was not a substitute for, or an effort to provide, complete medical care. In most cases, you must let your doctor check youagain. Tell your doctor about any new or lasting problems. We cannot recognize and treat all injuries or illnesses in one Emergency Department visit. If you had special tests, such as EKG's or X- rays, we will review them again within 24 hours. We will call you if there are any new suggestions. Please follow the instructions above carefully. If you are being transferred to another facility your followup plan of care will be determined by the receiving facility. If you are a patient that is being discharged from the Emergency Department after receiving narcotics or other medications that may impair your judgment you may be a risk to yourself or others if you operate a motor vehicle. We recommend that you arrange a ride home with a responsible republican. IBOYD BRIA MICHELE , or responsible republican have received this information and my questions have been answered. I have discussed any challenges I see with this plan with the nurse or physician. Patient Signature or Responsible Democrat/Relationship Date/Time Provider Signature Date/Time Medication Reconciliation: Reconciliation is a process of identifying the most accurate list of all medications a patient is taking - including name, dosage, frequency, and route - and using this list to provide to the patient information about how to take those medications. CELE AGUILAR or designee has reviewed the home medications you have listed with us. Review the following instructions: You have NOT received any prescriptions and you have told us you are not currently taking any home medications You have NOT received any prescriptions. You have been provided a discharge medications list and you may CONTINUE taking your medications as previously prescribed by your regular providers. You have received the listed prescriptions and BEGIN all listed prescriptions as directed. Since you have listed no home medications, please check with your family doctor if you are taking any other medications. You have received the listed prescriptions and BEGIN all listed prescriptions as directed. Youhave been provided a discharge medications list and you may CONTINUE all home medications as previously prescribed by your regular providers. You have received the listed prescriptions and BEGIN all listed prescriptions as directed. Youhave been provided a discharge medications list. The following CHANGES have been made to your medication list; Otherwise, CONTINUE all home medications as previously prescribed by your regular provider. IMPORTANT: We examined and treated you today on an emergency basis only. This was not a substitute for, or an effort to provide, complete medical care. In most cases, you must let your doctor check youagain. Tell your doctor about any new or lasting problems. We cannot recognize and treat all injuries or illnesses in one Emergency Department visit. If you had special tests, such as EKG's or X- rays, we will review them again within 24 hours. We will call you if there are any new suggestions. Please follow the instructions above carefully. If you are being transferred to another facility your followup plan of care will be determined by the receiving facility. If you are a patient that is being discharged from the Emergency Department after receiving narcotics or other medications that may impair your judgment you may be a risk to yourself or others if you operate a motor vehicle. We recommend that you arrange a ride home with a responsible republican. BOYD Pruett BRIA MICHELE , or responsible republican have received this information and my questions have been answered. I have discussed any challenges I see with this plan with the nurse or physician. Patient Signature or Responsible Democrat/Relationship Date/Time Provider Signature Date/Time This document has images extracted. Please consider using [employer] for all your patient education needs. Source: [employer] Document Id: [id number] Navin Chapman R.N. - 02/12/2012 11:54 PM CDT ED Depart Summary [facility] Emergency Department Clinical Discharge Summary PERSON INFORMATION Name CELE AGUILAR Age 21 Years 1990 12:00 AM Sex Female Language Citizen Of [place] PCP PCP, UNASSIGNED Marital Status Single Visit Id Visit Reason Chest pain; CHEST PAIN ON & OFF Specialty Enc Type Emergency Med Service Emergency Medicine Referred by Track Group [facility] ED/UC Discharge 02/12/2012 11:45 PM Tracking Id [id number] Checkout 02/12/2012 11:45 PM Checkin 02/12/2012 9:23 PM Acuity 3 -Urgent Dispo Type * Discharged to Home or Self Care Arrival 02/12/2012 9:23 PM Reg Status LOS 000 02:22 Address: [address] [place] [address] Comment: PROVIDER INFORMATION Provider Role Provider Contact Time NAVIN CHAPMAN HIM TECH Nurse 02/12/12 21:34 NI BARRIENTOS SENIOR DATASTAGE DEVELOPER ED Provider 02/12/12 22:08 DIAGNOSIS Costochondritis 733.6; Breast mass Comment: PATIENT EDUCATION INFORMATION Instructions: CHEST WALL PAIN, Costochondritis; BREAST MASS, Uncertain Cause Follow up: With: Address: When: UNASSIGNED PCP Within As Needed Comments: Source: [employer] Document Id: [id number] documented in this encounter Nursing Notes Navin Chapman R.N. - 02/12/2012 11:45 PM CDT ED Pain Assessment ED Pain Assessment Entered On: 02/12/2012 23:51 CDT Performed On: 02/12/2012 23:45 CDT by NAVIN CHAPMAN RN Pain Assessment Pain Symptoms : Yes NAVIN CHAPMAN RN - 02/12/2012 23:50 CDT Pain Pain Assessment Grid Pain 1 Location : Chest Intensity : 3 NAVIN CHAPMAN RN - 02/12/2012 23:50 CDT Source: [facility] [employer] Document Id: [id number] Navin Chapman R.N. - 02/12/2012 9:30 PM CDT ED Primary Assessment ED Primary Assessment Entered On: 02/12/2012 21:52 CDT Performed On: 02/12/2012 21:30 CDT by NAVIN CHAPMAN RN Reason For Visit Diagnoses(Active) Chest pain Date: 02/12/2012 ; Diagnosis Type: Reason For Visit ; Confirmation: Complaint of ; Clinical Dx: Chest pain ; Classification: Medical ; Clinical Service: Emergency medicine ; Code: PNED ; Probability: 0 ; Diagnosis Code: [id number] Triage Chief Complaint Description : Presents to ER with c/o chest pain starting on left side and across toright. Statesthat started a week ago and comes and goes. also stated that she found a ball on her breast. Information Given By : Patient Accompanied By : Alone Mode of Arrival ED : Private vehicle Track : Medical Languages : Citizen [place], Niuean Vital Signs Assessed : Yes NAVIN CHAPMAN RN - 02/12/2012 21:46 CDT Vital Signs Apical Heart Rate : 92/min Respiratory Rate : 20/min Systolic Blood Pressure : 119mmHg Diastolic Blood Pressure : 86mmHg NIBP Mean : 97mmHg BP Location : Right upper extremity SpO2 : 98% Oxygen Therapy : Room air Height : 163cm(Converted to: 5ft 4inch(es)) Weight Source : Bed scale Dosing Weight : 61kg Dosing Weight Conversion to Pounds : 134.200lb Estimated Weight : 61kg Estimated Weight Conversion to Pounds : 134.20lb NAVIN CHAPMAN RN - 02/12/2012 21:46 CDT Pain Assessment Pain Symptoms : Yes NAVIN CHAPMANBalbina PAT - 02/12/2012 21:46 CDT Pain Pain Assessment Grid Pain 1 Location : Chest Laterality : Bilateral Intensity : 5 NAVIN CHAPMANBalbina PAT - 02/12/2012 21:46 CDT REE REE Level 1 : No REE Level 2 : No REE Level 3 : Many Vital Signs REE : No NAVIN CHAPMANN RN - 02/12/2012 21:46 CDT DCP GENERIC CODE Tracking Acuity : 3 -Urgent Tracking Group : [facility] ED/UC NAVIN CHAPMANBalbina PAT - 02/12/2012 21:46 CDT Allergy Allergies (Active) NKA Estimated Onset Date: Unspecified ; Created By: Contributor_system, AL_HX_SYS; Reaction Status: Active ; Category: Drug ; Substance: NKA ; Type: Unknown ; Updated By: SYSTEM, SYSTEM; Reviewed Date:01/13/2012 19:06 CDT Respiratory Airway : Patent Respirations : Unlabored Respiratory Pattern : Regular ADELARICHARD BARAJASFlynn LUCAS RN - 02/12/2012 21:46 CDT Cardiovascular Heart Rhythm : Regular Skin Color : Normal for ethnicity Skin Description : Dry Skin Temperature : Warm NAVIN CHAPMAN LANCE PAT - 02/12/2012 21:46 CDT Neurological Last Well Time Known : Not applicable Level of Consciousness : Alert Orientation : Oriented x 3 Characteristics of Speech : Appropriate for age Neuro Patient Stated Symptoms : None Swallowing Difficulty/Aspiration Risk : None ADELARICHARD BARAJASFlynn LUCAS RN - 02/12/2012 21:46 CDT ED Psychosocial Affect/Behavior : Calm, Cooperative, Appropriate Domestic Abuse Concerns : None Emotional Support Available : Yes NAVIN CHAPMAN RN - 02/12/2012 21:46 CDT Gastrointestinal Nutrition ED : Adequate NAVIN CHAPMAN RN - 02/12/2012 21:46 CDT Musculoskeletal Fall Prevention Education Provided : Yes NAVIN CHAPMAN RN - 02/12/2012 21:46 CDT Social Habits Tobacco Use/Currently Using : Yes Tobacco Use/Advised to Quit : Yes Exposure to Tobacco Smoke : Patient smokes Smoking Status : Current every day smoker NAVIN CHAPMAN RN - 02/12/2012 21:46 CDT Tobacco Use Grid Type : Cigarettes Cigarette Use Packs/Day : 0.5 NAVIN CHAPMAN RN - 02/12/2012 21:46 CDT Source: [employer] Document Id: [id number] documented in this encounter ED Notes Navin Chapman R.N. - 02/12/2012 11:45 PM CDT ED Disposition Summary ED Disposition Summary Entered On: 02/12/2012 23:53 CDT Performed On: 02/12/2012 23:45 CDT by NAVIN CHAPMAN RN ED Disposition Summary Accompanied By : Significant other Mode of Discharge : Ambulatory Transportation : Private vehicle Discharge From ED With : Home Med List Printed Discharge Instructions Given to Patient : Yes Patient Status at Discharge from ED : Improved NAVIN CHAPMAN RN - 02/12/2012 23:51 CDT Source: [employer] Document Id: [id number] Ni Barrientos, GurwinderNEfrain - 02/12/2012 10:23 PM CDT Chest pain Patient: CELE AGUILAR Age: 21 years Sex: Female : 1990 Author: NI BARRIENTOS SENIOR DATASTAGE DEVELOPER Attachments: None Associated Diagnosis: Costochondritis 733.6; Breast mass Basic Information Additional information: Chief Complaint from Nursing Triage Note : Chief Complaint Description. 02/12/2012 21:30 CDT Chief Complaint Description Presents to ER with c/o chest pain starting on leftside and across to right. Statesthat started a week ago and comes and goes. also stated that she found a ball on her breast. History of Present Illness The patient presents with chest pain. The onset was 1 weeks ago. The course/duration of symptoms is episodic:about 3 times a day at random times. last 5-10 minutes.. Location: Left lateral. Radiating pain: radiated to R chest. The character of symptoms is achy. The degree at onset was 5 /10. The degree at maximum was 5 /10. . The degree at present is none. The exacerbating factor is hurts if she layson her chest.. The relieving factor is tylenol. Risk factors consist of none. Prior episodes: none. Therapy today None. Associated symptoms: none. Pt said while she was feeling her chest this morning she noticed a lump on L breast.. Review of Systems Constitutional symptoms: Negative except as documented in HPI. ENMT symptoms: Negative except as documented in HPI. Respiratory symptoms: Negative except as documented in HPI. Cardiovascular symptoms: Negative except as documented in HPI. Gastrointestinal symptoms: Negative except as documented in HPI. Genitourinary symptoms: Negative except as documented in HPI. Musculoskeletal symptoms: Negative except as documented in HPI. Health Status Allergies: . Nonallergic Reactions (Selected) NKA Past Medical/ Family/ Social History Medical history: . No active or resolved past medical history items have been selected or recorded. Surgical history: . No active procedure history items have been selected or recorded. Family history: . No family history items have been selected or recorded. Physical Examination Vital Signs Vital Signs. 02/12/2012 21:30 CDT Apical Heart Rate 92 /min Respiratory Rate 20 /min SpO2 98 % Systolic Blood Pressure 119 mmHg Diastolic Blood Pressure 86 mmHg Mean Arterial Pressure 97 mmHg BP Location Right upper Measurements. 02/12/2012 21:30 CDT Height 163 cm Dosing Weight 61 kg Estimated Weight 61 kg Weight Source Bed scale SpO2. 02/12/2012 21:30 CDT SpO2 98 % General: Alert and no acute distress. Skin: Warm, dry and pink. Neck: Supple. Cardiovascular: Regular rate and rhythm, No murmur, Normal peripheral perfusion and No edema. Respiratory: Lungs are clear to auscultation, respirations are non-labored and breath sounds are equal. Chest wall: On exam: Left, middle, superior, tenderness and Breast: Left breast, 2 o'clock, mass mobile, very small . Gastrointestinal: Soft, Nontender, Non distended and Normal bowel sounds. Neurological: Alert and oriented to person, place, time, and situation. Medical Decision Making Differential Diagnosis:Myocardial infarction, atypical chest pain, gastroesophageal reflux disease, costochondritis, chest wall pain. Electrocardiogram:Normal sinus rhythm, No ST-T changes, no ectopy, normal NM & QRS intervals, Interpretation by Emergency Physician Within normal limits, Dr Tello also viewed.. Results review:Lab results : Lab View. 02/12/2012 22:34 CDT Hgb 13.3 g/dL Hct 39.7 % WBC 6.3 x10(9)/L RBC 4.35 x10(12)/L MCV 91.3 fL RDW 12.4 % Platelet 247 x10(9)/L Neutro % 46.3 % Lymph % 37.9 % Sharkey % 14.2 % HI Eos % 1.0 % Baso % 0.6 % Neutro Absolute 2.89 10(9)/L Lymph Absolute 2.37 x10(9)/L Sharkey Absolute 0.89 x10(9)/L Eos Absolute 0.06 x10(9)/L Baso Absolute 0.04 x10(9)/L PT 12.5 second(s) INR 0.9 NA PTT 29.5 second(s) Sodium Lvl 142 mM/L Potassium Lvl 4.0 mM/L Chloride 106 mmol/L CO2 25 mmol/L AGAP 15 mmol/L Alkaline Phosphatase 87 IntU/L Glucose Lvl 80 mg/dL Creatinine 0.7 mg/dL EGFR (MDRD) >60 mL/min NA EGFR (MDRD) >60 mL/min NA BUN 15.5 mg/dL BUN/Creat Ratio 22 NA Calcium Lvl 9.4 mg/dL Magnesium 2.2 mg/dL Protein Total 7.4 gm/dL Albumin Lvl 4.2 G/DL AST 29 IntU/L ALT 21 IntU/L Bili Total <0.40 mg/dL Lipase Lvl 119 IntU/L Troponin-T <0.010 ng/mL Chest X-Ray:No acute disease process, interpretation by Emergency Physician. Impression and Plan Diagnosis Costochondritis 733.6 (Discharge, Emergency medicine, Medical) Diagnosis Breast mass (Discharge, Emergency medicine, Medical) [id number] Plan Condition: Unchanged. Disposition: Discharged: to home. Prescriptions: Prescription Biology Research Assistant. Pharmacy: Motrin 600 mg oral tablet (Ordered): 600 mg, 1 tab(s), PO, 3xDay, Take with food, 30 tab(s) Patient was given the following educational materials: CHEST WALL PAIN, Costochondritis, BREAST MASS, Uncertain Cause. Follow up with: UNASSIGNED PCP Within As Needed. Counseled: Patient. Notes: Referal sent to [facility]. Electronically Signed By: NI BARRIENTOS SENIOR DATASTAGE DEVELOPER On: 02/12/2012 11:16 PM Modified by and Electronically Signed by: NI BARRIENTOS SENIOR DATASTAGE DEVELOPER On: 02/12/2012 11:16 PM Source: [facility] [employer] Document Id: [id number]} documented in this encounter Miscellaneous Notes Miscellaneous - Navin Chapman R.N. - 02/12/2012 11:45 PM CDT Valuables/Belongings Valuables/Belongings Entered On: 02/12/2012 23:53 CDT Performed On: 02/12/2012 23:45 CDT by NAVIN CHAPMAN RN Valuables/Belongings Belongings Sent Home With : all personal bleonings sent home with patient Home Medication Disposition : None brought in with patient NAVIN CHAPMAN RN - 02/12/2012 23:53 CDT Source: [facility] [employer] Document Id: [id number] Miscellaneous - Conversion, Historical Provider Ser - 02/12/2012 9:23 PM CDT Facility Charge Ticket Facility Charge Ticket Entered On: 02/18/2012 15:56 CDT Performed On: 02/12/2012 21:23 CDT by VALERIO CORCORAN Facility Charge TVL Level for Facility Charge Ticket : Level 5 Mode of Arrival ED : Private vehicle [facility] Mode of Arrival Interpreted : Standard [facility] Process Management : None [facility] Order Management : Xray - plain films, Lab tests 30 Minutes Critical Care : No [facility] Nursing Assessment : Triage only [facility] Disposition : Discharge [facility] Total Points with Diagnosis Control : 12 [facility] Visit Level : 97193 Level 4 VALERIO CORCORAN - 02/18/2012 15:56 CDT Source: [facility] [employer] Document Id: [id number] documented in this encounter Plan of Treatment Not on filedocumented as of this encounter Procedures Procedure Name Priority Date/Time Associated Comments Diagnosis DX CHEST AP OR PA AND Routine 02/12/2012 11:07 Re sults for this LATERAL 2 VIEWS PM CDT procedure ar e in the results section. AUTOMATED DIFFERENTIAL, Routine 02/12/2012 10:34 Results for this B PM CDT procedure are i n the results section. ACTIVATED PARTIAL Routine 02/12/2012 10:34 Result s for this THROMBOPLASTIN TIME PM CDT procedur e are in (APTT), P the results section. PROTHROMBIN TIME (PT), Routine 02/12/2012 10:34 R esults for this P PM CDT procedure are i n the results section. CBC WITH DIFFERENTIAL, Routine 02/12/2012 10:34 R esults for this B PM CDT procedure are i n the results section. TROPONIN T, 5TH GEN, P Routine 02/12/2012 10:34 R esults for this PM CDT procedure are i n the results section. MAGNESIUM, S Routine 02/12/2012 10:34 Results for this PM CDT procedure are i n the results section. LIPASE, S/P Routine 02/12/2012 10:34 Results for this PM CDT procedure are i n the results section. COMPREHENSIVE METABOLIC Routine 02/12/2012 10:34 Results for this PANEL, S/P PM CDT procedure are i n the results section. documented in this encounter Results DX Chest AP or PA and Lateral 2 Views (02/12/2012 11:07 PM CDT) Anatomical Region Laterality Modality Chest N/A Radiographic Imaging Specimen (Source) Anatomical Collection Method Collection Time Re ceived Time Location / / Volume Laterality 02/12/2012 11:07 PM CDT Addenda Addendum by ProviderLevi M.D. o n 02/12/2012 11:07 PM CDT RAD^^^AL XR Chest 2v 02/12/2012 23:07:00 Narrative 02/13/2012 8:16 AM CDT EXAM: XR Chest 2 Views INDICATION: Chest pain Comparison: None Findings: The heart size is normal. The lungs are clear. Impression: No acute findings. Procedure Note ProviderLevi M.D. - 10/29/2016F ormatting of this note might be different from the original. EXAM: XR Chest 2 Views INDICATION: Chest pain Comparison: None Findings: The heart size is normal. The lungs are clear. Impression: No acute findings. Ramiro Samuel R.T.(R)(CT), R.T.(R) IMG DIAGNOSTIC I MAGING PROCEDURES (ABNORMAL) Automated Differential (02/12/2012 10:34 PM CDT) Patholo gist Method Time Signature Neutro % 46.3 41.0 - POWERCHART 77.0 Lymphocytes % 37.9 20.0 - POWERCHART 45.0 HX Sharkey % 14.2 (H) 0.0 - 12.0 POWERCHART HX Eos % 1.0 0.0 - 6.0 POWERCHART HX Baso % 0.6 0.0 - 2.0 POWERCHART Absolute 2.89 1.70 - POWERCHART Neutrophils 7.00 109L Lymphocytes 2.37 0.90 - POWERCHART 2.90 X109L Monocytes 0.89 0.30 - POWERCHART 0.90 X109L Eosinophils 0.06 0.05 - POWERCHART 0.50 X109L Absolute 0.04 0.00 - POWERCHART Basophil 0.30 X109L Specimen Anatomical Collection Method Collection Time Receive d Time (Source) Location / / Volume Laterality Blood 02/12/2012 10:34 02/12/2012 PM CDT 10:34 PM CDT Ni Barrientos APRN, C.N.P., SENIOR DATASTAGE DEVELOPER-C LAB BLOOD ADD-ON Performing Organization Address City/State/ZIP Code Phon e Number POWERCHART CBC with Differential (02/12/2012 10:34 PM CDT) P athologist Signature Leukocytes 6.3 3.4 - 10.5 POWERCHART X109L Erythrocytes 4.35 3.90 - 5.03 POWERCHART [id number] Hemoglobin 13.3 12.0 - 15.5 POWERCHART GDL Hematocrit 39.7 34.9 - 44.5 POWERCHART MCV 91.3 82.0 - 98.0 POWERCHART FL HX RDW 12.4 11.9 - 15.5 POWERCHART Platelet Count 247 150 - 450 POWERCHART X109L Specimen (Source) Anatomical Collection Method Collection Time Re ceived Time Location / / Volume Laterality Blood 02/12/2012 10:34 PM CDT Ni Barrientos APRN, C.N.P., SENIOR DATASTAGE DEVELOPER-C LAB BLOOD ADD-ON Performing Organization Address City/[facility]/ZIP Code Phon e Number POWERCHART APTT (Activated Partial Thromboplastin Time) (02/12/2012 10:34 PM CDT) Analysis Performed At Patho logist Time Signature Prothrombin 29.5 22.0 - 35.0 POWERCHART Time, P SECONDS Specimen (Source) Anatomical Collection Method Collection Time Re ceived Time Location / / Volume Laterality Blood 02/12/2012 10:34 PM CDT Ni Barrientos APRN, C.N.P., SENIOR DATASTAGE DEVELOPER-C LAB BLOOD ADD-ON Performing Organization Address City/[facility]/ZIP Code Phon e Number POWERCHART PT (Prothrombin Time) with INR (02/12/2012 10:34 PM CDT) Analysis Performed At Patho logist Time Signature Prothrombin 12.5 12.0 - 14.6 POWERCHART Time, P SECONDS INR 0.9 POWERCHART Specimen (Source) Anatomical Collection Method Collection Time Re ceived Time Location / / Volume Laterality Blood 02/12/2012 10:34 PM CDT Ni Barrientos APRN, C.N.P., SENIOR DATASTAGE DEVELOPER-C LAB BLOOD ADD-ON Performing Organization Address City/[facility]/ZIP Code Phon e Number POWERCHART Lipase (02/12/2012 10:34 PM CDT) P athologist Signature Lipase, S 119 23 - 300 POWERCHART INTUL Specimen (Source) Anatomical Collection Method Collection Time Re ceived Time Location / / Volume Laterality Blood 02/12/2012 10:34 PM CDT Ni Barrientos APRN, C.N.P., SENIOR DATASTAGE DEVELOPER-C LAB BLOOD ADD-ON Performing Organization Address City/[facility]/ZIP Code Phon e Number POWERCHART Troponin T (02/12/2012 10:34 PM CDT) P athologist Signature Troponin T, S <0.010 0.000 - POWERCHART 0.010 NGML Specimen (Source) Anatomical Collection Method Collection Time Re ceived Time Location / / Volume Laterality Blood 02/12/2012 10:34 PM CDT Ni Gilbert Keith BALLARD, C.N.P., SENIOR DATASTAGE DEVELOPER-C LAB BLOOD ADD-ON Performing Organization Address City/State/ZIP Code Phon e Number POWERCHART Magnesium (02/12/2012 10:34 PM CDT) P athologist Signature Magnesium, S 2.2 1.6 - 2.3 POWERCHART MGDL Specimen (Source) Anatomical Collection Method Collection Time Re ceived Time Location / / Volume Laterality Blood 02/12/2012 10:34 PM CDT Ni Gilbert Keith BALLADR, C.N.P., SENIOR DATASTAGE DEVELOPER-C LAB BLOOD ADD-ON Performing Organization Address City/State/ZIP Code Phon e Number POWERCHART CMP (Comprehensive Metabolic Panel) (02/12/2012 10:34 PM CDT) P athologist Signature Glucose 80 70 - 139 POWERCHART MGDL Comment: Reference Range: 70 - 99 mg/dL - Fasting 70 - 139 mg/dL - Non Fasting BUN (Blood Urea Nitrogen), S 15.5 6.0 - 21.0 MGDL POWERCHART Creatinine 0.7 0.5 - 1.2 MGDL POWERCHART HXeGFR (MDRD) >60 MLMIN POWERCHART eGFR Black/ >60 MLMIN PO WERCHART BUN/Creatinine Ratio 22 POWERCHAR T Sodium, S 142 136 - 148 MML POWERCHART Potassium, S 4.0 3.5 - 5.0 MML POWERCHART Chloride, S 106 100 - 111 MMOLL POWERCHART CO2 Total 25 21 - 32 MMOLL POWERCHART Anion Gap 15 10 - 20 MMOLL POWERCHART Albumin, S 4.2 3.5 - 5.0 GDL POWERCHART Alanine Amniotransferase, LD 21 10 - 43 INTUL POWERCHART Aspartate Aminotransferase (AST), S 29 15 - 46 INTUL POWERCHART Alkaline Phosphatase, S 87 38 - 126 INTUL P OWERCHART Bilirubin, Total, S <0.40 0.10 - 1.00 MGDL POW ERCHART Total Protein, S 7.4 6.3 - 8.2 GMDL POWERCHA RT Calcium, Total, S 9.4 8.4 - 10.4 MGDL POWERC CABEZAS Comment: Falsely lowered Calcium results have been associated with gadolinium contrast in MRI scans. If this is a poss ibility, contact lab for alternatives Specimen (Source) Anatomical Collection Method Collection Time Re ceived Time Location / / Volume Laterality Blood 02/12/2012 10:34 PM CDT Ni Barrientos APRN C.N.P., SENIOR DATASTAGE DEVELOPER-C LAB BLOOD ADD-ON Performing Organization Address City/State/ZIP Code Phon e Number POWERCHART documented in this encounter Visit Diagnoses Not on filedocumented in this encounter
--- OUTSIDE RECORDS SUMMARY | 2022-05-05 14:51 | XMS_ITS | Encounter Summary ---
:1990 Author Organization [facility] Address [address] [place] [address] Care Team Providers Name Role Phone Unavailable Primary Care Provider Unavailable Encounter Details Date Type Department Care Team Description 06/13/2010 PN Conversion Only [facility] [place] [address] [address] [place] [address] Social History Tobacco Use Types Packs/Day Years Used Date Smoking Tobacco: Never Assessed Sex Assigned at Date Recorded Not on file documented as of this encounter Plan of Treatment Not on filedocumented as of this encounter Visit Diagnoses Not on filedocumented in this encounter
== END 2022-04-30 15:05 | disposition home or self-care (01) ==
LOC: NFLDREF 05-05 14:22
PROVIDERS: Visit Provider Obstetrics & Gynecology
DX: N39.0 Urinary tract infection, site not specified (principal)
CPT/HCPCS: 87086; 87186

== ENCOUNTER 2022-05-12 13:57 | Outpatient (CLI) | payer BC, SELFPAY ==
--- NOTE | 2022-05-12 14:00 | CRLHL7_ITS ---
For Patients: As a result of the Cures Act, medical imaging exams and procedure reports are released immediately into your electronic medical record. You may view this report before your referring provider. If you have questions, please contact your health care provider. INDICATION: Evaluate size and dates TECHNIQUE: Ultrasound OB pelvis transvaginal. Real time nunez scale imaging of the pelvis was performed. COMPARISON: None FINDINGS: Sonographic imaging demonstrates a single living intrauterine gestation. The embryo demonstrates a regular cardiac rate measuring 157 beats per minute. The embryo`s crown rump length measurement of 1.4 cm corresponds to a gestational age of 7 weeks 5 days with a sonographic due date of 02/24/2023 There is a normal appearing yolk sac. There are no gross abnormalities noted within the embryo at this early state of development. The placenta has not yet developed. The gestational sac has a normal appearance and there is no evidence of a perigestational hemorrhage. The amount of fluid within the sac appears appropriate for gestational age. The cervix is closed. The myometrium appears normal. The ovaries are of normal size. There are no suspicious fluid collections noted in the cul-de-sac. IMPRESSION: Viable intrauterine . Gestational age calculated at 7 weeks 5 days with a sonographic due date of 12/24/2022 . This compares the station age by LMP of 8 weeks 0 days no abnormalities seen. Dictated by Mika Sue MD @ 05/13/2022 9:17:11 AM (Electronically Signed)
--- OUTSIDE RECORDS SUMMARY | 2022-05-12 14:40 | XMS_ITS | Encounter Summary ---
:1990 Author Organization [facility] Address [address] [place] [address] Care Team Providers Name Role Phone Unavailable Primary Care Provider Unavailable Encounter Details Date Type Department Care Team Description 06/17/2015 Hospital Encounter HX NO MAPPING Elsy Metcalf M.D. [address] [place], [place] [phone] (Wo rk) Social History [...] 163 cm (5' 4.17) 06/17/2015 4:10 PM LEASE ADMINISTRATION SUPERVISOR Body Mass Index - - documented in this encounter Plan of Treatment Not on filedocumented as of this encounter Visit Diagnoses Not on filedocumented in this encounter
--- OUTSIDE RECORDS SUMMARY | 2022-05-12 14:40 | XMS_ITS | Encounter Summary ---
:1990 Author Organization [facility] Address [address] [place] [address] Care Team Providers Name Role Phone Unavailable Primary Care Provider Unavailable Encounter Details Date Type Department Care Team Description 10/15/2015 Hospital Encounter HX [facility] FAMILYPRA Yosi Betancur, P.A.-C. [address] [place] [phone] (Wo rk) Social History Tobacco Use Types [...] Omalley, P.A.-C. - 10/15/2015 7:44 AM CDT [id number] CHIEF COMPLAINT/REASON FOR VISIT Breast lump, depression, [...] OMALLEY PAC On: 11/06/2015 10:10 PM Source: [facility] ATILIOSDPOOJA Document Id: [id number] documented in this encounter Miscellaneous Notes Miscellaneous - Elif Lentz, MendozaPLupisNLupis - 10/15/2015 8:01 AM CDT Adult Sales Engagement Manager Intake/History Adult Sales Engagement Manager Intake/History Entered On: 10/15/2015 8:03 CDT Performed [...] Information Given By : Patient Languages : German Is Patient Female and 13-50 no hysterectomy [...] ELIF LENTZ - 10/15/2015 8:01 CDT [facility] DEVICES[facility] Document Id: [id number] CDT!35 Elif Alexandra L.P.NLupis - 10/15/2015 8:01 [...] None Behavioral Health Screen/Safety Assmt : No Religion Preference : Yarsanism: Congregation ELIF LENTZ - 10/15/2015 8:01 CDT Advance Directive Advanced Directives : No Advance Directive Additional Information : No ELIF LENTZ - 10/15/2015 8:01 CDT Educ Needs Learning Style Preference Adult Grid Patient : Demonstration, Printed materials Family : None ELIF LENTZ - 10/15/2015 8:01 CDT [facility] Document Id: [id number] CDT!29 Lynn Villegas C.MLupisYulisa - 10/15/2015 7:42 AM CDT TRACY-7 TRACY-7 Entered On: 10/16/2015 7:42 CDT Performed On: 10/15/2015 7:42 CDT by [facility] GAD7 GAD7 Feeling nervous : Nearly [...] with others : Extremely difficult [facility] - 10/16/2015 7:42 CDT Source: [employer] Document Id: [id number] CDT!11 Miscellaneous - Lynn Robert C.MLupisALupis - 10/15/2015 7:42 AM CDT PHQ-9 PHQ-9 Entered On: 10/16/2015 7:42 CDT Performed On: 10/15/2015 7:42 CDT by [facility] PHQ-9 Little interest or pleasure in [...] with others : Extremely difficult [facility] - 10/16/2015 7:42 CDT Source: [employer] Document Id: [id number] CDT!13 documented in this encounter Plan of Treatment Not on filedocumented as of this encounter Visit Diagnoses Not on filedocumented in this encounter Additional Health Concerns Assessment Noted Time PHQ-9 Depression Total Score: 23 10/15/2015 7:42 AM CD T documented as of this encounter
--- OUTSIDE RECORDS SUMMARY | 2022-05-12 14:40 | XMS_ITS | Encounter Summary ---
:1990 Author Organization [facility] Address [address] [place] [address] Care Team Providers Name Role Phone Unavailable Primary Care Provider Unavailable Encounter Details Date Type Department Care Team Description 04/20/2014 Hospital Encounter HX [facility] Mercy Desai M.D. [address] [place], [place] [phone] (Wo rk) Social History [...] 163 cm (5' 4.17) 04/20/2014 10:23 AM SENIOR JAVA J2EE DEVELOPER Body Mass Index - - documented in this encounter Plan of Treatment Not on filedocumented as of this encounter Procedures Procedure Name Priority Date/Time Associated Diagnosis Comme nts US OB GREATER THAN Routine 04/20/2014 10:36 AM Re sults for this 14 WEEKS SENIOR JAVA J2EE DEVELOPER procedure are i n the results section. documented in this encounter Results US OB Greater than 14 weeks (04/20/2014 10:36 AM SENIOR JAVA J2EE DEVELOPER) Anatomical Region Laterality Modality Ultrasound Specimen (Source) Anatomical Collection Method Collection Time Re ceived Time Location / / Volume Laterality 04/20/2014 10:36 AM SENIOR JAVA J2EE DEVELOPER Addenda Addendum by Provider, Kay Sims 04/20/2014 10:36 AM SENIOR JAVA J2EE DEVELOPER RAD^^^OW US OB Greater than 14 weeks 04/20/2014 10:36:07 Impressions 04/21/2014 2:57 PM SENIOR JAVA J2EE DEVELOPER 1. Viable with TAMY of August , consistent with prior dates. 2. anatomic survey appears normal, gender is male. In general, it is reasonable to use the sonographically derived TMAY if it differs from that calculated using [...] aneuploidy, as well as congenital heart defects. [facility] [place] [facility] Dept. [phone] Narrative 04/21/2014 2:57 PM SENIOR JAVA J2EE DEVELOPER EXAM: US OB Greater than 14 weeks INDICATION: Survey REFERRING PHYSICIAN: Jagdeep FOREIGN EXCHANGE TRADER: Juliana Recio RDMS. : 9 ?? PARA: [...] 14 weeks INDICATION: Survey REFERRING PHYSICIAN: Jagdeep FOREIGN EXCHANGE TRADER: Juliana Recio RDMS. : 9 PARA: 5 [...] aneuploidy, as well as congenital heart defects. [facility] [place] [employer] [place] Dept. [phone] Juliana Recio R.V.T., RCandice.MLupisS. IMG OB US PROCEDURE S documented in this encounter Visit Diagnoses Not on filedocumented in this encounter
--- OUTSIDE RECORDS SUMMARY | 2022-05-12 14:40 | XMS_ITS | Encounter Summary ---
:1990 Author Organization [facility] Address [address] [place] [address] Care Team Providers Name Role Phone Unavailable Primary Care Provider Unavailable Encounter Details Date Type Department Care Team Description 10/03/2020 Orders Only [facility] Sa nicolás Spicer M.D. [address] [place] [phone] (Wo rk) Social History Tobacco [...]
--- OUTSIDE RECORDS SUMMARY | 2022-05-12 14:40 | XMS_ITS | Encounter Summary ---
:1990 Author Organization [facility] Address [address] [place] [address] Care Team Providers Name Role Phone Unavailable Primary Care Provider Unavailable Encounter Details Date Type Department Care Team Description 08/03/2014 Hospital Encounter HX NO MAPPING Shamar Gannon M.D. [address] [place], [place] [phone] (Wo rk) Social History Tobacco Use Types Packs/Day Years Used Date Smoking Tobacco: Never Assessed Sex Assigned at Date Recorded Not on file documented as of this encounter Miscellaneous Notes Miscellaneous - Levi Mcarthur Provider Ser - 08/03/2014 11:59 PM RAILCAR BRAKE OPERATOR Coding Summary-Paper Based CODING DATE: 08/10/2014 FINAL [facility] STATUS: * Discharged to Home or Self [...] PARKS Date Saved: 08/10/2014 10:30 pm Source: [facility] POWERCHART Document Id: [id number] documented in this encounter Plan of Treatment Not on filedocumented as of this encounter Visit Diagnoses Not on filedocumented in this encounter
--- OUTSIDE RECORDS SUMMARY | 2022-05-12 14:40 | XMS_ITS | Encounter Summary ---
:1990 Author Organization [facility] Address [address] [place] [address] Care Team Providers Name Role Phone Unavailable Primary Care Provider Unavailable Encounter Details Date Type Department Care Team Description 03/30/2014 Hospital Encounter HX [facility] OBGYN Mercy Gannon M.D. [address] [place], [place] [phone] (Wo rk) Social History [...] GANNON MD On: 03/30/2014 03:25 PM Source: [facility] POWERCHART Document Id: [id number] documented in this encounter Nursing Notes Tessy Gannon M.D. - 03/30/2014 3:24 PM CDT Ambulatory Patient Education The following Patient Education Materials have been given to the patient: Patient Education Materials: Barrel Lathe Operator Adapting to : Second Trimester Barrel Lathe Operator Adapting to : Second Trimester Keep up [...] smoke. ?? Dont breathe fumes from nail indonesian, hair spray, cleansers, or other chemicals. ?? [id number] [place] [address]. All rights reserved. This information is not intended as a substitute for professional medical care. Always follow your healthcare professional's instructions. This document has images extracted. Please consider using [employer] for all your patient education needs. Source: [facility] POWERCHART Document Id: [id number] documented in this encounter Miscellaneous Notes Miscellaneous - Tessy Gannon M.D. - 03/30/2014 3:24 PM CDT Ambulatory Patient Summary [facility] [address] [place] [phone] Visit Information Name: CELE AGUILAR [facility] Number: [id number] Current Date: 03/30/2014 15:24:27 Physicians [...] Date Time Location Provider 04/20/2014 10:30 [facility] STOVE REFINISHER OWOC Barrel Lathe Operator Ultrasound Room 3 04/20/2014 11:30 OW[facility] STOVE REFINISHER Tessy Gannon MD Attention: Contact your local [...] smoke. ?? Dont breathe fumes from nail indonesian, hair spray, cleansers, or other chemicals. ?? [phone] [facility], [address] [place] [address], [place] [address]. All rights reserved. This information is not intended as a substitute for professional medical care. Always follow your healthcare professional's instructions. Your Goals/Additional instructions: This document has images extracted. Please consider using [employer] for all your patient education needs. Source: [facility] POWERCHART Document Id: [id number] Miscellaneous - Tessy Gannon M.D. - 03/30/2014 3:24 PM CDT Ambulatory Discharge Medication List [facility] [address] [place] [id number] Visit Information Name: CELE AGUILAR [facility] Number: [id number] Visit Date: 03/30/2014 15:24:26 Attending [...] MD Signed On:30-MAR-2014 15:24:13 Additional Information: Source: [facility] POWERCHART Document Id: [id number] Miscellaneous - Mannie Hernandez, L.P.N. - 03/30/2014 2:44 PM CDT Adult Pain Management Nurse Practitioner Intake/History Adult Pain Management Nurse Practitioner Intake/History Entered On: 03/30/2014 14:49 CDT Performed [...] 03/30/2014 14:44 CDT General Info Languages : Arabic, Yakut Is Patient Female and 13-50 no hysterectomy [...] MANNIE HERNANDEZ - 03/30/2014 14:44 CDT Source: [facility] Document Id: [id number] CDT!27 documented in this encounter Plan of [...] athologist Signature HXN gonor Amp Negative POWERCHART DNA-[place] Specimen (Source) Anatomical Collection Method Collection Time Re ceived Time Location / / Volume Laterality 03/30/2014 3:42 PM CDT Narrative POWERCHART - 03/31/2014 1:49 PM CDT Test Performed by: [facility] - [address] [address] Power Originator: Dilcia Davison Tessy Gannon M.D. LAB HISTORICAL ORDERS Performing Organization Address City/State/ZIP Code Phon e Number POWERCHART HX-N gonor Amp Src (03/30/2014 3:42 PM CDT) P athologist Signature HXN gonor Amp [facility] POWERCHART [facility] Spec[facility] (Source) Anatomical Collection Method Collection Time Re ceived Time Location / / Volume Laterality 03/30/2014 3:42 PM CDT Tessy Gannon M.D. LAB HISTORICAL ORDERS Performing Organization Address City/State/ZIP Code Phon e Number POWERCHART HX-C trach Amp RNA (03/30/2014 3:42 PM CDT) [facility] Method Time Signature Chlamydia Negative POWERCHART trachomatis amplified RNA Specimen (Source) Anatomical Collection Method Collection Time Re ceived Time Location / / Volume Laterality 03/30/2014 3:42 PM CDT Tessy Gannon M.D. LAB HISTORICAL ORDERS Performing Organization Address City/State/ZIP Code Phon e Number POWERCHART HX-C trach Amp Src (03/30/2014 3:42 PM CDT) P athologist Signature HXC trach Amp [place] POWERCHART [facility] Specimen (Source) Anatomical Collection Method Collection Time Re ceived Time Location / / Volume Laterality 03/30/2014 3:42 PM CDT Tessy Gannon M.D. LAB HISTORICAL ORDERS Performing Organization Address City/State/ZIP Code Phon e Number POWERCHART documented in this encounter Visit Diagnoses Not on filedocumented in this encounter
--- OUTSIDE RECORDS SUMMARY | 2022-05-12 14:40 | XMS_ITS | Encounter Summary ---
:1990 Author Organization [facility] Address [address] [place] [address] Care Team Providers Name Role Phone Unavailable [...]
--- OUTSIDE RECORDS SUMMARY | 2022-05-12 14:40 | XMS_ITS | Encounter Summary ---
:1990 Author Organization [facility] Address [address] [place] [address] Care Team Providers Name Role Phone Unavailable Primary Care Provider Unavailable Encounter Details Date Type Department Care Team Description 08/17/2014 Hospital Encounter HX [facility] OBGYMercy Wilson M.D. [address] [place], [place] [phone] (Wo rk) Social History [...] GANNON MD On: 08/17/2014 03:27 PM Source: [facility] POWERCHART Document Id: [id number] documented in this encounter Nursing Notes Tessy Gannon M.D. - 08/17/2014 3:18 PM CDT Ambulatory Patient Education The following Patient Education Materials have been given to the patient: Patient Education Materials: Radar Air Traffic Controller Anesthesia Options for Labor Radar Air Traffic Controller Anesthesia Options for Labor Anesthesia is a [...] the medication has reached the baby. ?? [id number] [place] [address]. All rights reserved. This information is not intended as a substitute for professional medical care. Always follow your healthcare professional's instructions. This document has images extracted. Please consider using Piktochart for all your patient education needs. Source: [facility] POWERCHART Document Id: [id number] documented in this encounter Miscellaneous Notes Miscellaneous - Lisa Hernandez, L.P.N. - 08/17/2014 3:19 PM CDT Adult Multimedia Manager Intake/History Adult Multimedia Manager Intake/History Entered On: 08/17/2014 15:21 CDT Performed [...] 08/17/2014 15:19 CDT General Info Languages : Hebrew, Italian Is Patient Female and 13-50 no hysterectomy [...] LISA HERNANDEZ - 08/17/2014 15:19 CDT Source: [employer] Document Id: [id number] CDT!29 Miscellaneous - Tessy Gannon M.D. - 08/17/2014 3:18 PM CDT Ambulatory Patient Summary [address] [id number] Visit Information Name: CELE AGUILAR [facility] Number: [id number] Current Date: 08/17/2014 15:18:28 [...] Date Time Location Provider 08/25/2014 14:15 OWOC CARTON INSPECTOR Tessy Gannon MD 09/01/2014 14:45 OWOC CARTON INSPECTOR Tessy Gannon MD Attention: Contact your local [...] the medication has reached the baby. ?? [id number] [facility], [address] [place] [address]. All rights reserved. This information is not intended as a substitute for professional medical care. Always follow your healthcare professional's instructions. Your Goals/Additional instructions: This document has images extracted. Please consider using Piktochart for all your patient education needs. Source: [facility] POWERCHART Document Id: [id number] Miscellaneous - Tessy Gannon M.D. - 08/17/2014 3:18 PM CDT Ambulatory Discharge Medication List [address] [id number] Visit Information Name: CELE AGUILAR [facility] Number: [id number] Visit Date: 08/17/2014 15:18:27 [...] MD Signed On:17-AUG-2014 15:18:14 Additional Information: Source: [facility] POWERCHART Document Id: [id number] documented in this encounter Plan of Treatment Not on filedocumented as of this encounter Visit Diagnoses Not on filedocumented in this encounter
--- OUTSIDE RECORDS SUMMARY | 2022-05-12 14:40 | XMS_ITS | Encounter Summary ---
:1990 Author Organization [facility] Address [address] [place] [address] Care Team Providers Name Role Phone Unavailable Primary Care Provider Unavailable Reason for Visit Reason Comments COVID Nurse Line Encounter Details Date Type Department Care Team Description 02/25/2020 Clinical Communication Division of Janee Burciaga Nurse Rosalina [facility] Dilcia, R.NLupis [facility], [facility] [place], [place] [address] [place] [address] Social History Tobacco Use Types Packs/Day Years [...] to be swabbed for COVID-19, sent to [facility] located [address] Take frontage [...] and water aren't available, use a hand neighborhood worker that contains at least 60% alcohol. Avoid [...] since you were tested. Educational Resource: https://www.cdc.gov/coronavirus/2019-ncov/ sxlymmh-qzafdrj-quov/index.html RECOMMENDATIONS TESTING CRITERIA IS MET: Stay home [...] COVID- 19 test result. Education Resources: https://www.cdc.gov/coronavirus/2019- ncov/sv-kya-gtv-sick/byauu-yvmj-nrqm.html SELF CARE FOR ALL PATIENTS: Take breaks [...] care: Yes The following references were used: [facility] IPA novel coronavirus (COVID- 19) resources documented in this encounter Plan of Treatment Not on filedocumented as of this encounter Visit Diagnoses Not on filedocumented in this encounter Additional Health Concerns Assessment Noted Time PHQ-9 Depression Total Score: 6 11/12/2015 4:00 PM CDT documented as of this encounter
--- OUTSIDE RECORDS SUMMARY | 2022-05-12 14:40 | XMS_ITS | Encounter Summary ---
:1990 Author Organization [facility] Address [address] [place] [address] Care Team Providers Name Role Phone Unavailable Primary Care Provider Unavailable Encounter Details Date Type Department Care Team Description 08/31/2014 Hospital Encounter HX NO MAPPING Dylan Jorgensen M.D. [address] [place], [place] [phone] (Wo rk) Social History [...]
--- OUTSIDE RECORDS SUMMARY | 2022-05-12 14:40 | XMS_ITS | Clinical Summary ---
:1990 Author Organization [facility] [place] [address] Care Team Providers Name Role Phone Pcp, [...] mouth every : Anxiety and morning. depression fluconazole Take one tab 3 Tablet 0 04/07/2022 04/25/20 Disc ontinued (DIFLUCAN) 150 mg every 2-3 days 22 (*Med tabletIndications: as needed for complete/Regimen Yeast vaginitis yeast. Do not complete/Level use in of care danette) metroNIDAZOLE Take 1 Tablet 14 Tablet [...] Tobacco Cessation: Ready to Quit: Yes; C ounseling Given: Yes Comments: 2-3 cigerttes a day [...] contact No / Unsure 04/25/2022 10:40 AM BOWLING BALL GRADER AND MARKER with someone who was confirmed or suspected to have Coronavirus/COVID-19? Obstetrics History Para Term AB IAB SAB Ectopic Multiple Living Live Births 1 1 1 0 0 0 0 0 0 1 1 Date Outcome GA Total Labor/2nd/3rd Weight Sex Delivery Anes PTL Julee A 1 A5 Name Clin Labor 08/26 Term 38w 3.88 kg M Spina N Steffi 9 9 AGUILAR 6d (8 lb l ng ,BB s, 8.9 oz) (CELE paula ) B Delivery Location: [facility] Last Filed Vital Signs Vital Sign Reading Time Taken Comments Blood Pressure 95/60 04/25/2022 10:57 AM BOWLING BALL GRADER AND MARKER Pulse 74 04/25/2022 10:57 AM BOWLING BALL GRADER AND MARKER Temperature 36.6 ??C (97.8 ??F) 04/07/2022 8:05 PM CDT Respiratory Rate 16 04/07/2022 8:05 PM CDT Oxygen Saturation 98% 04/25/2022 10:57 AM BOWLING BALL GRADER AND MARKER Inhaled Oxygen Concentration - - Weight 78 kg (172 lb 1 oz) 04/25/2022 10:57 AM BOWLING BALL GRADER AND MARKER Height 161.3 cm (5' 3.5) 12/18/2021 2:52 PM CDT Body Mass Index 30 12/18/2021 2:52 PM CDT Plan of Treatment Upcoming Encounters Date Type Specialty Care Team Description 05/26/2022 Office Visit Kalpana Champion MD [address] [place], [place] [address] (Wo rk) Health Maintenance [...] (04/07/2022 8:15 PM CDT) Analysis Performed At [facility] logist Time Signature THROAT RAPID Negative 04/07/2022 [place] STREP A 8:32 PM CDT [facility] Specimen Anatomical Collection Method Collection Time Receive d Time (Source) Location / / Volume Laterality Throat SPECIMEN FROM Non-Blood / 04/07/2022 8:15 PM 04/07/20 22 8:21 THROAT / Unknown Unknown CDT PM CDT Gino Johnson MD MICROBIOLOGY Performing Organization Address City/State/ZIP Code Phon e Number [facility] [address] [place] [address] (ABNORMAL) URINALYSIS MICROSCOPIC (04/07/2022 8:07 PM CDT) Patholo gist Method Time Signature RBC 0-2 0-2, None 04/07/2022 [place] Seen /HPF 8:34 PM [facility] WBC 26-50 (A) 0-2, 3-5, 04/07/2022 [place] None Seen 8:34 PM [facility] /HPF LABORATORY BACTERIA Few None 04/07/2022 [place] Seen, 8:34 PM [facility] Rare, Few LABORATORY Bacteria/ HPF EPITHELIAL Many (A) None 04/07/2022 [place] CELLS Seen, Few 8:34 PM [facility] Epi/HPF LABORATORY Mucus Present 04/07/2022 [place] 8:34 PM [facility] Specimen Anatomical Collection Method Collection Time Receive d Time (Source) Location / / Volume Laterality Urine URINE SPECIMEN / Non-Blood / 04/07/2022 8:07 PM 04/07 8:16 Unknown Unknown CDT [facility] G[facility] Johnson MD URINE Performing Organization Address City/State/ZIP Code Phon e Number [facility] [address] [facility] [place] [address] (ABNORMAL) UA W/ SEDIMENT EXAM REFLEXED PER CRITERIA (04/07/2022 8:07 PM CDT) [facility] Method Time Signature COLOR Yellow Yellow Color 04/07/2022 [place] 8:34 PM [facility] CLARITY Cloudy (A) Clear 04/07/2022 [place] Clarity 8:34 PM [facility] SPECIFIC >=1.030 (A) 1.010, 04/07/2022 [place] GRAVITY,URINE 1.015, 8:34 PM [facility] 1.020, 1.025 CENTER LABORATORY PH,URINE 6.0 6.0, 7.0, 04/07/2022 [place] 8.0, 5.5, 8:34 PM [facility] 6.5, 7.5, CENTER 8.5 LABORATORY UROBILINOGEN, Normal Normal EU/dl 04/07/2022 [place] QUALITATIVE 8:34 PM [facility] PROTEIN, Trace (A) Negative 04/07/2022 [place] URINE mg/dL 8:34 PM [facility] GLUCOSE, Negative Negative 04/07/2022 [place] URINE mg/dL 8:34 PM [facility] KETONES,URINE Negative Negative 04/07/2022 [facility] mg/dL 8:34 PM [facility] BILIRUBIN,URI Abnormal (A) Negative 04/07/2022 [place] 8:34 PM [facility] Comment: A variety of metabolites and/or medications may result in a positive bilirubin result. Clinical correlation i s recommended. OCCULT BLOOD,URINE Negative Negative 04/07/2022 8:34 PM [facility] NITRITE Negative Negative 04/07/2022 8:34 PM [place] M [facility] LEUKOCYTE ESTERASE Large (A) Negative 04/07/2022 8:34 PM [facility] Specimen Anatomical Collection Method Collection Time Receive d Time (Source) Location / / Volume Laterality Urine URINE SPECIMEN / Non-Blood / 04/07/2022 8:07 PM 04/07 8:16 Unknown Unknown CDT PM CDT Gino Johnson MD URINE Performing Organization Address City/State/ZIP Code Phon e Number [facility] [address] [place] [phone] from Last 3 Months Insurance Payer Benefit Plan / Subscriber ID Effective Dates Phone Addre ss Type Group [employer] [place] BLUE [employer]VANTAGE [id number] 2019-Present [address] [address] [place] [address] [place] [email or web address] [facility] Health/Steve Employer 06/08/2000 [place] DANETTE [place] (Home) DEPT [id number] [employer] [phone] [facility] [place] ([place]) [place] [address] Advance Directives Latest Code Status on File Code Status Date Activated Date Inactivated Comments Full Code 08/26/2014 12:09 AM 08/29/2014 4:20 PM Full Code 08/25/2014 11:28 PM 08/26/2014 12:09 AM Full Code 05/05/2014 7:44 AM 05/05/2014 11:15 AM Care Teams Wind Commissioning Technician Relationship Specialty Start Date End Date Pcp, No PCP - General 05/05/14 .
--- OUTSIDE RECORDS SUMMARY | 2022-05-12 14:40 | XMS_ITS | Encounter Summary ---
:1990 Author Organization [facility] Address [address] [place] [address] Care Team Providers Name Role Phone Unavailable Primary Care Provider Unavailable Encounter Details Date Type Department Care Team Description 04/20/2014 Hospital Encounter HX [facility] OBGYMercy Wilson M.D. [address] [place], [place] [phone] (Wo rk) Social History Tobacco Use Types Packs/Day Years Used Date Smoking Tobacco: Never Assessed Sex Assigned at Date Recorded Not on file documented as of this encounter Last Filed Vital Signs Vital Sign Reading Time Taken Comments Blood Pressure 110/62 04/20/2014 11:08 AM AGRICULTURE INSPECTOR Pulse - - Temperature - - Respiratory Rate - - Oxygen Saturation - - Inhaled Oxygen Concentration - - Weight 71.6 kg (157 lb 13.6 oz) 04/20/2014 11:08 AM AGRICULTURE INSPECTOR Height 163 cm (5' 4.17) 04/20/2014 11:08 AM AGRICULTURE INSPECTOR Body Mass Index 26.95 04/20/2014 11:08 AM AGRICULTURE INSPECTOR documented in this encounter Progress Notes Tessy [...] GANNON MD On: 04/20/2014 11:50 AM Source: [facility] POWERCHART Document Id: [id number] CULTURE INSPECTOR documented in this encounter Nursing Notes Tessy Gannon M.D. - 04/20/2014 11:48 AM CST Ambulatory Patient Education The following Patient Education Materials have been given to the patient: Patient Education Materials: Image Processing Engineer Adapting to : Second Trimester Image Processing Engineer Adapting to : Second Trimester Keep up [...] smoke. ?? Dont breathe fumes from nail togolese, hair spray, cleansers, or other chemicals. ?? [id number] [facility], [address] [place] [address], [place] [address]. All rights reserved. This information is not intended as a substitute for professional medical care. Always follow your healthcare professional's instructions. This document has images extracted. Please consider using PharmatrophiX for all your patient education needs. Source: [facility] POWERCHART Document Id: [id number] CULTURE INSPECTOR documented in this encounter Miscellaneous Notes Miscellaneous - Tessy Gannon M.D. - 04/20/2014 11:48 AM CST Ambulatory Patient Summary [facility] [address] [facility] [place], [place] [id number] Visit Information Name: CELE AGUILAR [facility] Number: [id number] Current Date: 04/20/2014 11:48:29 Physicians [...] smoke. ?? Dont breathe fumes from nail togolese, hair spray, cleansers, or other chemicals. ?? [id number] [facility], [address] [place] [address], [place] [address]. All rights reserved. This information is not intended as a substitute for professional medical care. Always follow your healthcare professional's instructions. Your Goals/Additional instructions: This document has images extracted. Please consider using PharmatrophiX for all your patient education needs. Source: [facility] YaData Document Id: [id number] CULTURE INSPECTOR Miscellaneous - Tessy Gannon M.D. - 04/20/2014 11:48 AM CST Ambulatory Discharge Medication List [facility] [address] [place] [id number] Visit Information Name: CELE AGUILAR [facility] Number: [id number] Visit Date: 04/20/2014 11:48:29 Attending [...] MD Signed On:20-APR-2014 11:48:17 Additional Information: Source: [facility] YaData Document Id: [id number] CULTURE INSPECTOR Miscellaneous - Kvng Chua L.PLupisN. - 04/20/2014 11:08 AM CST Adult Ticket Chopper Assembler Intake/History Adult Ticket Chopper Assembler Intake/History Entered On: 04/20/2014 11:11 AGRICULTURE INSPECTOR Performed On: 04/20/2014 11:08 AGRICULTURE INSPECTOR by KVNG CHUA Intake Chief Complaint : [...] 26.95 kg/m2 KVNG CHUA - 04/20/2014 11:08 AGRICULTURE INSPECTOR General Info Information Given By : Patient Languages : Turks [place] Ca[place] Islander, Albanian Is Patient Female and 13-50 no hysterectomy : Yes Status : Confirmed positive Are you ? : No KVNG CHUA - 04/20/2014 11:08 AGRICULTURE INSPECTOR Subjective Pain Symptoms : Yes KVNG CHUA - 04/20/2014 11:08 AGRICULTURE INSPECTOR Pain Pain Assessment Grid Pain 1 Location : Other: sharp pain on left side. KVNG CHUA - 04/20/2014 11:08 AGRICULTURE INSPECTOR Dependent Habits Tobacco Use/Currently Using : No Exposure to Tobacco Smoke : Patient smokes Smoking Status : Former smoker KVNG CHUA - 04/20/2014 11:08 AGRICULTURE INSPECTOR Tobacco Use Grid Type : Cigarettes Cigarette Use Packs/Day : 0.5 KVNG CHUA - 04/20/2014 11:08 AGRICULTURE INSPECTOR ID Screen Travel Within Last 21 Days : No KVNG CHUA - 04/20/2014 11:08 AGRICULTURE INSPECTOR Source: [facility] POWERCHART Document Id: [id number] AGRICULTURE INSPECTOR!34 CULTURE INSPECTOR documented in this encounter Plan of Treatment Not on filedocumented as of this encounter Visit Diagnoses Not on filedocumented in this encounter
--- OUTSIDE RECORDS SUMMARY | 2022-05-12 14:40 | XMS_ITS | Encounter Summary ---
:1990 Author Organization [facility] Address [address] [place] [address] Care Team Providers Name Role Phone Unavailable Primary Care Provider Unavailable Reason for Visit Reason Comments Pre-placement Appointment Request (Routine) - Closed Specialty Diagnoses / Procedures Referred By Contact Refer red To Contact Occupational Medicine Referral ID Status Reason Start Date Expiration Date Visits Requ ested Visits Authorized [id number] Closed 07/29/2021 07/29/2022 1 Encounter Details Date Type Department Care Team Description 08/02/2021 Comprehensive Visit Department of Mirna Butler, Bryan cement Exam Occupational Medicine P.A.-C. (Primary Dx) in [place] [address] [place] [address] [address], [place] [phone] Social History Tobacco Use Types Packs/Day Years Used Date Smoking Tobacco: Every Day Sex Assigned at Date Recorded Not on file documented as of this encounter Last Filed Vital Signs Vital Sign Reading Time Taken Comments Blood Pressure 95/62 08/02/2021 10:05 AM RELEASE MANAGER Pulse 71 08/02/2021 10:05 AM RELEASE MANAGER Temperature - - Respiratory Rate - - Oxygen Saturation - - Inhaled Oxygen Concentration - - Weight 72 kg (158 lb 11.7 oz) 08/02/2021 10:05 AM RELEASE MANAGER Height 163 cm (5' 4.17) 08/02/2021 10:05 AM RELEASE MANAGER Body Mass Index 27.1 08/02/2021 10:05 AM RELEASE MANAGER documented in this encounter Progress Notes Mirna Butler, P.A.-C. - 08/02/2021 10:00 AM CST SUBJECTIVE EMPLOYER: Annamarie POSITION: Assembly HISTORY OF PRESENT ILLNESS Cele Aguilar is a 30 y.o. female presenting today for a pre-placement physical. She has been working for [employer] 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 She has no concerns with her ability to perform the essential functions of the job. She normally sees providers at [facility] for primary care. The patient does not have any current complaints. Patient completed Pre-Employment History Evaluation Questionnaire. This is reviewed in detail. She reports a history of depression/anxiety, currently well-controlled without medications.No SI. She has also dealt with right wrist tendinitis in the past that flares up from time to time. The following portions of the patient's medical history were reviewed and updated as appropriate: allergies, current medications, medical history, social history, surgical history and problem list. REVIEW OF SYSTEMS ROS negative, as documented on the Pre-Employment History Evaluation Questionnaire completed on 08/02/21 except as mentioned in the HPI. OBJECTIVE Vitals: 08/02/21 1005 BP: 95/62 Pulse: 71 PHYSICAL EXAMINATION General: Alert, relaxed female, under no acute distress. Neurologic: Thought processes coherent. Oriented to person, place, and time. Skin: Warm, moist. No lesions or ecchymosis. HEENT: Normocephalic, atraumatic. Pupils equal, round, reactive to light and accommodation. Extraocular movements intact. Heart: S1, S2. Regular rate and rhythm. No murmurs, gallops, or rubs. Lungs: Clear to auscultation bilaterally. Abdomen: Soft, nontender to palpation. No hepatosplenomegaly. Extremities: Warm and well perfused. No joint pain or deformities. GENITALIA: Not examined. ASSESSMENT / PLAN #1 Preplacement Exam The job description, Pre-Employment Questionnaire, and diagnostic testing have been reviewed. May proceed with employment without restrictions. Appropriate forms filled out for the employer. See scanned documents for details. Thank you for letting me be involved in your care. ASE MANAGER documented in this encounter Plan of Treatment Not on filedocumented as of this encounter Visit Diagnoses Diagnosis Preplacement Exam - Primary documented in this encounter Additional Health Concerns Assessment Noted Time PHQ-9 Depression Total Score: 6 11/12/2015 4:00 PM CDT documented as of this encounter
--- OUTSIDE RECORDS SUMMARY | 2022-05-12 14:40 | XMS_ITS | Encounter Summary ---
:1990 Author Organization [facility] Address [address] [place] [address] Care Team Providers Name Role Phone Unavailable Primary Care Provider Unavailable Encounter Details Date Type Department Care Team Description 08/31/2014 Hospital Encounter HX NO MAPPING Dylan Jorgensen M.D. [address] [place], [place] [phone] (Wo rk) Social History Tobacco Use Types Packs/Day Years Used Date Smoking Tobacco: Never Assessed Sex Assigned at Date Recorded Not on file documented as of this encounter Plan of Treatment Not on filedocumented as of this encounter Visit Diagnoses Not on filedocumented in this encounter
--- OUTSIDE RECORDS SUMMARY | 2022-05-12 14:40 | XMS_ITS | Encounter Summary ---
:1990 Author Organization [facility] Address [address] [place] [address] Care Team Providers Name Role Phone Unavailable Primary Care Provider Unavailable Reason for Visit Reason Comments MRO REview [facility] Encounter Details Date Type Department Care Team Description 08/05/2021 Office Visit Department of Occupational Yousif Villa, Drug Screen Medicine in [place] Segura M.D., M.P. H. [address] [phone] (Wo rk) Social History Tobacco Use Types Packs/Day Years Used Date Smoking Tobacco: Every Day Sex Assigned at Date Recorded Not on file documented as of this encounter Progress Notes Edna Brothers L.PLupisN. - 08/05/2021 8:45 AM CST MRO Review for [facility]. RMATION ASSURANCE MANAGER documented in this encounter Plan of Treatment Not on filedocumented as of this encounter Visit Diagnoses Diagnosis Drug Screen documented in this encounter Additional Health Concerns Assessment Noted Time PHQ-9 Depression Total Score: 6 11/12/2015 4:00 PM CDT documented as of this encounter
--- OUTSIDE RECORDS SUMMARY | 2022-05-12 14:40 | XMS_ITS | Encounter Summary ---
:1990 Author Organization [facility] Address [address] [place] [address] Care Team Providers Name Role Phone Unavailable Primary Care Provider Unavailable Encounter Details Date Type Department Care Team Description 08/25/2014 Hospital Encounter HX [facility] OBGYMercy Wilson M.D. [address] [place], [place] [phone] (Wo rk) Social History [...] GANNON MD On: 08/25/2014 02:44 PM Source: [facility] POWERCHART Document Id: [id number] documented in this encounter Nursing Notes Tessy Gannon M.D. - 08/25/2014 2:43 PM CDT Ambulatory Patient Education The following Patient Education Materials have been given to the patient: Patient Education Materials: Licensed Embalmer Adapting to : Third Trimester Licensed Embalmer Adapting to : Third Trimester Although common [...] Limit coffee, black tea, and cola. ?? [phone] Jocy Moreno, [address] [place] [address], [place] [address]. All rights reserved. This information is not intended as a substitute for professional medical care. Always follow your healthcare professional's instructions. This document has images extracted. Please consider using [employer] for all your patient education needs. Source: [facility] POWERCHART Document Id: [id number] documented in this encounter Miscellaneous Notes Miscellaneous [...] Patient ( ) ( ) Call for Steel Turner ( ) Follow up on Results ( ) Other: PROVIDER: ( ) Call Physician ( ) Call Pharmacist ( ) Call Lab ( ) Other: Special Instructions: Comments: Source: [facility] POWERCHART Document Id: [id number] Electronically signed by [facility] Principal Software Engineer [id number] at 11/03/2016 2:40 PM CDT Miscellaneous - Tessy Gannon M.D. - 08/25/2014 2:43 PM CDT Ambulatory Patient Summary [facility] [address] [place] [id number] Visit Information Name: CELE AGUILAR [facility] Number: [id number] Current Date: 08/25/2014 14:43:51 Physicians [...] Date Time Location Provider 09/01/2014 14:45 [facility] FIELD SUPPORT REPRESENTATIVE Tessy Gannon MD Attention: Contact your local [...] Limit coffee, black tea, and cola. ?? [phone] [facility], [address] [place] [address], [place] [address]. All rights reserved. This information is not intended as a substitute for professional medical care. Always follow your healthcare professional's instructions. Your Goals/Additional instructions: This document has images extracted. Please consider using [employer] for all your patient education needs. Source: [facility] POWERCHART Document Id: [id number] Axel - Tessy Gannon M.D. - 08/25/2014 2:43 PM CDT Ambulatory Discharge Medication List [facility] [address] [place], [place] [address] [place] [id number] Visit Information Name: CELE AGUILAR [facility] Number: [id number] Visit Date: 08/25/2014 14:43:50 Attending [...] MD Signed On:25-AUG-2014 14:43:39 Additional Information: Source: [facility] POWERCHART Document Id: [id number] Axel - Lisa Hernandez, L.P.N. - 08/25/2014 2:18 PM CDT Adult Mounter Sousaphones Intake/History Adult Mounter Sousaphones Intake/History Entered On: 08/25/2014 14:22 CDT Performed [...] 08/25/2014 14:18 CDT General Info Languages : Persian, Uzbek Is Patient Female and 13-50 no hysterectomy [...] LISA HERNANDEZ - 08/25/2014 14:18 CDT Source: [employer] Document Id: [id number] CDT!29 documented in this encounter Plan of Treatment Not on filedocumented as of this encounter Visit Diagnoses Not on filedocumented in this encounter
--- OUTSIDE RECORDS SUMMARY | 2022-05-12 14:40 | XMS_ITS | Encounter Summary ---
:1990 Author Organization [facility] Address [address] [place] [address] Care Team Providers Name Role Phone Unavailable Primary Care Provider Unavailable Encounter Details Date Type Department Care Team Description 03/16/2015 Hospital Encounter HX [facility] Rik Mahajan M.D. [address] [place] [address] (Wo rk) Social History Tobacco Use Types Packs/Day Years Used Date Smoking Tobacco: Never Assessed Sex Assigned at Date Recorded Not on file documented as of this encounter Plan of Treatment Not on filedocumented as of this encounter Visit Diagnoses Not on filedocumented in this encounter
--- OUTSIDE RECORDS SUMMARY | 2022-05-12 14:40 | XMS_ITS | Encounter Summary ---
:1990 Author Organization [facility] Address [address] [place] [address] Care Team Providers Name Role Phone Unavailable Primary Care Provider Unavailable Encounter Details Date Type Department Care Team Description 08/10/2014 Hospital Encounter HX [facility] OBGYMercy Wilson M.D. [address] [place], [place] [phone] (Wo rk) Social History Tobacco Use Types Packs/Day Years Used Date Smoking Tobacco: Never Assessed Sex Assigned at Date Recorded Not on file documented as of this encounter Last Filed Vital Signs Vital Sign Reading Time Taken Comments Blood Pressure 120/60 08/10/2014 9:46 AM FLOWER ARRANGER Pulse - - Temperature - - Respiratory Rate - - Oxygen Saturation - - Inhaled Oxygen Concentration - - Weight 85.4 kg (188 lb 4.4 oz) 08/10/2014 9:46 AM FLOWER ARRANGER Height 163 cm (5' 4.17) 08/10/2014 9:46 AM FLOWER ARRANGER Body Mass Index 32.14 08/10/2014 9:46 AM FLOWER ARRANGER documented in this encounter Progress Notes Tessy [...] the patient's accompanying ACOG form for established ATMY, documentation of prior obstetric history, laboratory information, [...] GANNON MD On: 08/10/2014 09:57 AM Source: [facility] POWERCHART Document Id: [id number] ER ARRANGER documented in this encounter Miscellaneous Notes Miscellaneous - Tessy Gannon M.D. - 08/10/2014 9:56 AM CST Ambulatory Patient Summary [address] [id number] Visit Information Name: CELE AGUILAR [facility] Number: [id number] Current Date: 08/10/2014 09:56:46 Physicians [...] Date Time Location Provider 08/17/2014 15:15 [facility] V BLOCK SAW OPERATOR Tessy Gannon MD 08/25/2014 14:15 [facility] V BLOCK SAW OPERATOR Tessy Gannon MD 09/01/2014 14:45 [facility] V BLOCK SAW OPERATOR Tessy Gannon MD Attention: Contact your local Clinic if further appointment detail needed. Your Goals/Additional instructions: Source: [facility] POWERCHART Document Id: [id number] ER ARRANGER Miscellaneous - Tessy Gannon M.D. - 08/10/2014 9:56 AM CST Ambulatory Discharge Medication List [facility] [address] [place] [id number] Visit Information Name: CELE AGUILAR [facility] Number: [id number] Visit Date: 08/10/2014 09:56:45 Attending [...] MD Signed On:10-AUG-2014 09:56:41 Additional Information: Source: [facility] POWERCHART Document Id: [id number] ER ARRANGER Miscellaneous - Lisa Hernandez, L.P.N. - 08/10/2014 9:46 AM CST Adult Train Inspector Intake/History Adult Train Inspector Intake/History Entered On: 08/10/2014 9:48 FLOWER ARRANGER Performed On: 08/10/2014 9:46 FLOWER ARRANGER by LISA HERNANDEZ Intake Chief Complaint : [...] 32.14 kg/m2 LISA HERNANDEZ - 08/10/2014 9:46 FLOWER ARRANGER General Info Languages : Arabic, Hungarian Is Patient Female and 13-50 no hysterectomy : No LISA HERNANDEZ - 08/10/2014 9:46 FLOWER ARRANGER Subjective Pain Symptoms : No LISA HERNANDEZ - 08/10/2014 9:46 FLOWER ARRANGER Dependent Habits Tobacco Use/Currently Using : No Exposure to Tobacco Smoke : Patient smokes Smoking Status : Former smoker LISA HERNANDEZ - 08/10/2014 9:46 FLOWER ARRANGER Tobacco Use Grid Type : Cigarettes Cigarette Use Packs/Day : 0.5 LISA HERNANDEZ - 08/10/2014 9:46 FLOWER ARRANGER ID Screen Travel Within Last 21 Days : No Contact with someone with Ebola : No LISA HERNANDEZ - 08/10/2014 9:46 FLOWER ARRANGER [facility] Document Id: [id number] FLOWER ARRANGER!29 ER ARRANGER documented in this encounter Plan of Treatment Not on filedocumented as of this encounter Visit Diagnoses Not on filedocumented in this encounter
--- OUTSIDE RECORDS SUMMARY | 2022-05-12 14:40 | XMS_ITS | Encounter Summary ---
:1990 Author Organization [facility] Address [address] [place] [address] Care Team Providers Name Role Phone Unavailable Primary Care Provider Unavailable Encounter Details Date Type Department Care Team Description 09/04/2015 Hospital Encounter [facility]X [facility] Social History Tobacco Use Types Packs/Day Years [...]
--- OUTSIDE RECORDS SUMMARY | 2022-05-12 14:40 | XMS_ITS | Encounter Summary ---
:1990 Author Organization [facility] Address [address] [place] [address] Care Team Providers Name Role Phone Unavailable [...] Deshpande, M.S.N. - 09/11/2014 3:56 PM CDT [id number] CHIEF COMPLAINT/REASON FOR VISIT Cele is seen for a 2-week postoperative visit. She underwent a delivery for arrest of dilation. SURGEON Murray Law MD HISTORY OF PRESENT ILLNESS She [...] DESHPANDE NP On: 09/13/2014 11:44 AM Source: [facility] MHSDOLBEYNONRADSYS Document Id: [id number] documented in this encounter Miscellaneous Notes Miscellaneous - Evelyn Deshpande, M.S.N. - 09/11/2014 5:06 PM CDT Ambulatory Discharge Medication List [address] [id number] Visit Information Name: CELE AGUILARELE [facility] Number: [id number] Visit Date: 09/11/2014 17:06:53 [...] NP Signed On:11-SEP-2014 17:06:37 Additional Information: Source: [facility] POWERCHART Document Id: [id number] Miscellaneous - Evelyn Deshpande, M.S.N. - 09/11/2014 5:06 PM CDT Ambulatory Patient Summary [address] [id number] Visit Information Name: AGUILAR, CELE OSVALDO [facility] Number: [id number] Current Date: 09/11/2014 17:06:53 [...] 09/13/2014 13:15 [facility]ils[facility] Will PA-C 10/06/2014 10:45 OWOC LICENSE ISSUER Jagdeep LOYA, Shamar Canchola Attention: Contact your local Clinic if further appointment detail needed. Your Goals/Additional instructions: Source: [facility] POWERCHART Document Id: [id number] Miscellaneous - Luisito Kinsey LLupisPLupisN. - 09/11/2014 4:04 PM CDT Adult Area Manager Intake/History Adult Area Manager Intake/History Entered On: 09/11/2014 16:07 CDT Performed [...] 09/11/2014 16:04 CDT General Info Languages : Indonesian, Faroese Is Patient Female and 13-50 no hysterectomy [...] LUISITO KINSEY - 09/11/2014 16:04 CDT Source: [employer] Document Id: [id number] CDT!38 documented in this encounter Plan of Treatment Not on filedocumented as of this encounter Visit Diagnoses Not on filedocumented in this encounter
--- OUTSIDE RECORDS SUMMARY | 2022-05-12 14:40 | XMS_ITS | Encounter Summary ---
:1990 Author Organization [facility] Address [address] [place] [address] Care Team Providers Name Role Phone Unavailable Primary Care Provider Unavailable Encounter Details Date Type Department Care Team Description 11/12/2015 Hospital Encounter HX [facility] FAMILYPRA Yosi Betancur, P.A.-C. [address] [place] [phone] (Wo rk) Social History Tobacco Use Types [...] Omalley, P.A.-C. - 11/12/2015 3:56 PM CDT [id number] CHIEF COMPLAINT/REASON FOR VISIT Recheck depression. HISTORY [...] provide her with the numbers for the [facility] with hope that she could learn how to apply for the early childhood education coordinator assistance program. Carol Omalley P.A.-C./cristi Electronically Signed By: CAROL OMALLEY PA-C On: 02/11/2016 09:16 PM Modified by and Electronically Signed by: CAROL OMALLEY PA-C On: 02/11/2016 09:16 PM Source: [facility] MHSDOLBEYNONRADSYS Document Id: [id number] documented in this encounter Miscellaneous Notes Miscellaneous - Carol Omalley P.A.-C. - 11/12/2015 5:40 PM CDT Ambulatory Patient Summary [facility] [address] [place] [id number] Visit Information Name: CELE AGUILAR [facility] Number: [id number] Current Date: 11/12/2015 17:40:47 Physicians [...] once Placed in left arm 10/10/2014 / [facility] [id number] sertraline (sertraline 100 mg oral tablet) 1 Tablet(s), Oral, once a day Routed to [address] [address] Stop Taking the Following Medications: Medication list [...] if you dont have one. Go to [email or web address] and click on Create Your Account. Then, follow the directions to complete the online form. Youll be asked for your [facility] number which you can find at the top of this document. Your Goals/Additional instructions: Source: [facility] POWERCHART Document Id: [id number] Miscellaneous - Carol Omalley P.A.-C. - 11/12/2015 5:40 PM CDT Ambulatory Discharge Medication List [facility] [address] [place], [place] [id number] Visit Information Name: CELE AGUILAR [facility] Number: [id number] Visit Date: 11/12/2015 17:40:47 Attending [...] once Placed in left arm 10/10/2014 / [facility] [id number] sertraline (sertraline 100 mg oral tablet) 1 Tablet(s), Oral, once a day Routed to [address] [address] Stop Taking the Following Medications: [...] PA-C Signed On:12-NOV-2015 17:40:44 Additional Information: Source: [facility] POWERCHART Document Id: [id number] Miscellaneous - Oh Ruiz, L.P.N. - 11/12/2015 4:04 PM CDT Adult Survey Chief Intake/History Adult Survey Chief Intake/History Entered On: 11/12/2015 16:07 CDT Performed [...] Preferred Communication Mode : Verbal Languages : Frisian Is Patient Female and 13-50 no hysterectomy [...] Ayesha EM - 11/12/2015 16:04 CDT Source: [employer] Document Id: [id number] CDT!30 Axel - Sherman Rubio, C.M.A. - 11/12/2015 4:00 PM CDT TRACY-7 TRACY-7 Entered On: 11/13/2015 16:40 CDT Performed On: 11/12/2015 16:00 CDT by SHERMAN RUBIO [facility] GAD7 GAD7 Feeling nervous : Several days GAD7 Not able to control worry : Several days GAD7 Worrying too much : Several days GAD7 Trouble relaxing : Not at all GAD7 Being so restless : Not at all GAD7 Becoming easily annoyed : Several days GAD7 Feeling afraid : Not at all GAD7 Total Score : 4 SHERMAN RUBIO [facility] - 11/13/2015 16:39 CDT Source: [employer] Document Id: [id number] CDT!10 Axel - Sherman Rubio C.M.A. - [...] RUBIO CMA - 11/13/2015 16:40 CDT Source: [employer] Document Id: [id number] CDT!12 documented in this encounter Plan of Treatment Not on filedocumented as of this encounter Visit Diagnoses Not on filedocumented in this encounter Additional Health Concerns Assessment Noted Time PHQ-9 Depression Total Score: 6 11/12/2015 4:00 PM CDT documented as of this encounter
--- OUTSIDE RECORDS SUMMARY | 2022-05-12 14:40 | XMS_ITS | Clinical Summary ---
:1990 Author Organization [facility] Address [address] [place] [address] Care Team Providers Name Role Phone Unavailable Primary Care Provider Unavailable Source Comments Patient records contain information from all sites at [facility]. For routine questions regarding patient records, call [phone] during business hours, M-F 8:00 AM - 5:00 PM Central Time. Record requests for emergency care only can be directed to [phone] at any time.[facility] Allergies No known active allergies [...] Comments Blood Pressure 95/62 08/02/2021 10:05 AM ENGRAVER FLATWARE Pulse 71 08/02/2021 10:05 AM ENGRAVER FLATWARE Temperature - - Respiratory Rate 20 01/03/2014 4:40 PM CDT Oxygen Saturation - - Inhaled Oxygen Concentration - - Weight 72 kg (158 lb 11.7 oz) 08/02/2021 10:05 AM ENGRAVER FLATWARE Height 163 cm (5' 4.17) 08/02/2021 10:05 AM ENGRAVER FLATWARE Body Mass Index 27.1 08/02/2021 10:05 AM ENGRAVER FLATWARE Plan of Treatment Health Maintenance Due Date [...] / Group Dates BLUE CROSS BCBS BLUE [id number] 2019-Prese ATTN: Dilcia myers HMO BLUE SHIELD PLUS HMO nt CONSUMER [facility] [address] [address] [place] [address]
--- OUTSIDE RECORDS SUMMARY | 2022-05-12 14:40 | XMS_ITS | Encounter Summary ---
:1990 Author Organization [facility] Address [address] [place] [address] Care Team Providers Name Role Phone Unavailable Primary Care Provider Unavailable Reason for Referral Outpatient (Routine) - Authorized Specialty Diagnoses / Procedures Referred By Contact Refer red To Contact Diagnoses Drug Screen Mirna Butler P.ALupis-CLupis [facility] Procedures OCC Drug screening [address] [place] [address] Referral ID Status Reason Start Date Expiration Date Visits V isits Requested Authorized [id number] Authorized 08/02/2021 08/02/2022 1 1 CUTTER Reason for Visit Reason Comments Drug Screen Encounter Details Date Type Department Care Team Description 08/02/2021 Clinical Support Department of Frank Persaud (Primary Occupational Medicine Zo E, Dx) in [facility] evelina L.P.N. [address] [facility] [phone] [place], [place] (Work) [phone] Social History Tobacco Use [...]
--- OUTSIDE RECORDS SUMMARY | 2022-05-12 14:40 | XMS_ITS | Encounter Summary ---
:1990 Author Organization [facility] Address [address] [place] [address] Care Team Providers Name Role Phone Unavailable [...] Deshpande, M.S.N. - 10/10/2014 1:35 PM CDT [id number] CHIEF COMPLAINT/REASON FOR VISIT Ceel presents for Nexplanon device placement. She recently [...] DESHPANDE NP On: 10/12/2014 02:34 PM Source: [facility] MHSDOLBEYNONRADSYS Document Id: [id number] documented in this encounter Miscellaneous Notes Miscellaneous - Evelyn Deshpande, M.S.N. - 10/10/2014 4:06 PM CDT Ambulatory Patient Summary [facility] [address] [facility] [place] [id number] Visit Information Name: CELE AGUILAR [facility] Number: [id number] Current Date: 10/10/2014 16:06:35 Physicians Attending Provider: EVELYN DESHPANDE TYPESETTING MACHINE OPERATOR/TENDER Primary Care Provider: PCP, UNASSIGNED - OW [...] mg subcutaneous implant) 1 Each, Subcutaneous, once [facility] [id number] New FLUoxetine (PROzac) 1 tablet, Oral, once [...] of emergency. Electronically Signed By: EVELYN DESHPANDE TYPESETTING MACHINE OPERATOR/TENDER Signed On:10-OCT-2014 16:06:14 Your Allergies & Intolerances Substance Reaction Symptoms Category Comments No Known Allergies Drug Your Problem List Problem Status Onset Comments Active 11/27/2013 (C) Section Delivery Active 08/26/2014 09/11/14 Arrest of dilation Your Upcoming Appointments Date Time Location Provider No Appointments found Attention: Contact your local Clinic if further appointment detail needed. Your Goals/Additional instructions: Source: [facility] POWERCHART Document Id: [id number] Miscellaneous - Evelyn Deshpande M.S.N. - 10/10/2014 4:06 PM CDT Ambulatory Discharge Medication List [address] [id number] Visit Information Name: CELE AGUILAR [facility] Number: [id number] Visit Date: 10/10/2014 16:06:34 Attending [...] mg subcutaneous implant) 1 Each, Subcutaneous, once [facility] [id number] New FLUoxetine (PROzac) 1 tablet, Oral, once [...] NP Signed On:10-OCT-2014 16:06:14 Additional Information: Source: [facility]-[employer] Records International[employer]ART Document Id: [id number] Miscellaneous - Jailyn Kinsey LLupisP.N. - 10/10/2014 1:41 PM CDT Adult Mold Press Operator Intake/History Adult Mold Press Operator Intake/History Entered On: 10/10/2014 13:43 CDT Performed [...] 10/10/2014 13:41 CDT General Info Languages : Yoruba, Maltese Is Patient Female and 13-50 no hysterectomy [...] JAILYN KINSEY - 10/10/2014 13:41 CDT [facility] POWER[facility] Document Id: [id number] CDT!29 documented in this encounter Plan of Treatment Not on filedocumented as of this encounter Visit Diagnoses Not on filedocumented in this encounter
--- OUTSIDE RECORDS SUMMARY | 2022-05-12 14:40 | XMS_ITS | Encounter Summary ---
:1990 Author Organization [facility] Address [address] [place] [address] Care Team Providers Name Role Phone Unavailable Primary Care Provider Unavailable Encounter Details Date Type Department Care Team Description 10/06/2014 Hospital Encounter [facility]X [facility] Mercy Gannon M.D. [address] [place], [place] [phone] (Wo rk) Social History Tobacco Use Types Packs/Day Years Used Date Smoking Tobacco: Never Assessed Sex Assigned at Date Recorded Not on file documented as of this encounter Last Filed Vital Signs Vital Sign Reading Time Taken Comments Blood Pressure 100/56 10/06/2014 10:53 AM CDT Pulse - - Temperature - - Respiratory Rate - - Oxygen Saturation - - Inhaled Oxygen Concentration - - Weight 69.5 kg (153 lb 3.5 oz) 10/06/2014 10:53 AM CDT Height 163 cm (5' 4.17) 10/06/2014 10:53 AM CDT Body Mass Index 26.16 10/06/2014 10:53 AM CDT documented in this encounter Progress Notes Tessy Gannon M.D. - 10/06/2014 10:54 AM CDT CHIEF COMPLAINT: examination HISTORY OF PRESENT ILLNESS: This patient presents for a exam following by Dr. Law. She has done well in the interval period without significant complications nor concerns. She is now experiencing normal bowel and bladder habits and minimal lochia. She is not experiencing any fever, chills, nausea, nor vomiting. Pain is well controlled. She is now returning to all normal activities of daily life. The infant is growing and doing well overall. She is not currently experiencing feelings of depression or baby blues. CURRENT MEDICATIONS and ALLERGIES have been reviewed and are current in the EMR as of today's date. Physical exam: Vital signs are reviewed, stable, and in the normal range as documented in the EMR as of today's date. General: well nourished, well developed female in no acute distress. Pleasant and conversant. Abdomen: Non tender. No masses palpated. Pelvic: External genitalia, Bartholin, urethral, and [place] glands appear normal. Vaginal secretions are grossly physiologic. Uterus is well involuted, mobile, and non tender to palpation. Perineum is within normal limits and without signs of erythema nor exudate. Adnexae is negative for masses or tenderness bilaterally. The [place] Depression Scale is 6 IMPRESSION/REPORT/PLAN: Post- examination now dismissed from our Obstetrical service. Care of this patient is returned to her primary care provider. She is free to follow-up with me if any further gynecologic issues. For contraception, she plans Nexplanon. Tessy Morocho Electronically Signed By: TESSY GANNON MD On: 10/06/2014 11:09 AM Source: [facility] POWERCHART Document Id: [id number] documented in this encounter Nursing Notes Tessy Gannon M.D. - 10/06/2014 10:53 AM CDT Ambulatory Patient Education The following Patient Education Materials have been given to the patient: Patient Education Materials: Dorr Operator For New Mothers: Staying Fit After Delivery Dorr Operator For New Mothers: Staying Fit After Delivery After you deliver your baby, you can start to exercise whenever you feel ready. Let your body be your guide. Most women are ready to exercise after 6 weeks. If youve had a section, you may need more time. Exercise Tips for New Mothers You can start doing Kegel exercises as soon as you deliver your baby. Do them at least 10 times a day to help avoid bladder problems later on. Kegel exercises help strengthen your pelvic muscles. To dothem, squeeze the muscles that you use to stop passing urine (do not do this while urinating). Hold that squeeze for a count of 10, then release. You will want to resume other exercise gradually and talk to your doctor before starting. Always exercise with care. Limit yourself to special or low-impact exercises for at least 6 months before trying to do more demanding exercises. Look for ways to combine exercising with being with yournew baby. Try propping your baby up in a carrier so that he or she can watch you exercise at home argelia a class. Or, strap your baby into a front pack and take a walk. Strengthening Stomach Muscles Many new mothers want to strengthen their stomach (abdomen) muscles after giving . Try this exercise when youre ready to resume your program. It will strengthen the front and side muscles of your abdomen. ?? Lie on your back with your knees bent and feet flat on the floor. Cross your arms over your stomach. Use your fingers to gently pull the sides of the stomach toward the middle of your body. ?? Exhale and try to pull the stomach muscles toward your spine. Gently raise your shoulders off thefloor, no more than 6-8 inches. Hold for 5 seconds. Repeat 5 times. ?? 2143[address] [place] [address]. All rights reserved. This information is not intended as a substitute for professional medical care. Always follow your healthcare professional's instructions. This document has images extracted. Please consider using [employer] for all your patient education needs. Source: [facility] POWERCHART Document Id: [id number] documented in this encounter Miscellaneous Notes Miscellaneous - Tessy Gannon M.D. - 10/06/2014 10:53 AM CDT Ambulatory Patient Summary [facility] [address] [place], [place] [phone] Visit Information Name: CELE AGUILAR [facility] Number: [id number] Current Date: 10/06/2014 10:53:58 Physicians Attending Provider: TESSY GANNON MD Primary [...] the Following Medications: Medication list as of 10-06-14 10:53 Attention: If you have any medications at [...] Electronically Signed By: TESSY GANNON MD Signed On:06-OCT-2014 10:53:47 Your Allergies & Intolerances Substance Reaction Symptoms Category Comments No Known Allergies Drug Your Problem List Problem Status Onset Comments Active 11/27/2013 (C) Section Delivery Active 08/26/2014 09/11/14 Arrest of dilation Your Upcoming Appointments Date Time Location Provider No Appointments found Attention: Contact your local Clinic if further appointment detail needed. For New Mothers: Staying Fit After Delivery After you deliver your baby, you can start to exercise whenever you feel ready. Let your body be your guide. Most women are ready to exercise after 6 weeks. If youve had a section, you may need more time. Exercise Tips for New Mothers You can start doing Kegel exercises as soon as you deliver your baby. Do them at least 10 times a day to help avoid bladder problems later on. Kegel exercises help strengthen your pelvic muscles. To dothem, squeeze the muscles that you use to stop passing urine (do not do this while urinating). Hold that squeeze for a count of 10, then release. You will want to resume other exercise gradually and talk to your doctor before starting. Always exercise with care. Limit yourself to special or low-impact exercises for at least 6 months before trying to do more demanding exercises. Look for ways to combine exercising with being with yournew baby. Try propping your baby up in a carrier so that he or she can watch you exercise at home argelia a class. Or, strap your baby into a front pack and take a walk. Strengthening Stomach Muscles Many new mothers want to strengthen their stomach (abdomen) muscles after giving . Try this exercise when youre ready to resume your program. It will strengthen the front and side muscles of your abdomen. ?? Lie on your back with your knees bent and feet flat on the floor. Cross your arms over your stomach. Use your fingers to gently pull the sides of the stomach toward the middle of your body. ?? Exhale and try to pull the stomach muscles toward your spine. Gently raise your shoulders off thefloor, no more than 6--8 inches. Hold for 5 seconds. Repeat 5 times. ?? 4318-[address]28 [place] [address]. All rights reserved. This information is not intended as a substitute for professional medical care. Always follow your healthcare professional's instructions. Your Goals/Additional instructions: This document has images extracted. Please consider using [employer] for all your patient education needs. Source: [facility] POWERCHART Document Id: [id number] Miscellaneous - Tessy Gannon M.D. - 10/06/2014 10:53 AM CDT Ambulatory Discharge Medication List [address] [id number] Visit Information Name: CELE AGUILAR [facility] Number: [id number] Visit Date: 10/06/2014 10:53:57 Attending Provider: TESSY GANNON MD Primary Care [...] the Following Medications: Medication list as of 10-06-14 10:53 Attention: If you have any medications at [...] Electronically Signed By: TESSY GANNON MD Signed On:06-OCT-2014 10:53:47 Additional Information: Source: [facility] POWERCHART Document Id: [id number] Miscellaneous - Lisa Hernandez, L.P.N. - 10/06/2014 10:53 AM CDT Adult Drafter Topographical Intake/History Adult Drafter Topographical Intake/History Entered On: 10/06/2014 10:57 CDT Performed On: 10/06/2014 10:53 CDT by LISA HERNANDEZ Intake Chief Complaint : 6 wk pp c-sec Dr Law Systolic Blood Pressure : 100 mmHg Diastolic Blood Pressure : 56 mmHg NIBP Mean : 71 mmHg BP Location : Left upper extremity Blood Pressure Cuff Size : Large Height : 163 cm(Converted to: 5 ft 4 inch(es), 64 inch(es)) Actual Weight : 69.5 kg(Converted to: 153 lb 4 oz) Dosing Weight Clinic : 69.5 kg Clinic BSA : 1.77 Body Mass Index : 26.16 kg/m2 LISA HERNANDEZ - 10/06/2014 10:53 CDT General Info Languages : Amharic, Polish Is Patient Female and 13-50 no hysterectomy : No LISA HERNANDEZ - 10/06/2014 10:53 CDT Subjective Pain Symptoms : LISA Willett - 10/06/2014 10:53 CDT Dependent Habits Tobacco Use/Currently Using : Yes Exposure to Tobacco Smoke : Patient smokes Smoking Status : Current every day smoker LISA HERNANDEZ - 10/06/2014 10:53 CDT Tobacco Use Grid Type : Cigarettes Cigarette Use Packs/Day : 0.5 LISA HERNANDEZ - 10/06/2014 10:53 CDT ID Screen Travel Within Last 21 Days : No Contact with someone with Ebola : No LISA HERNANDEZ - 10/06/2014 10:53 CDT Source: [employer] Document Id: [id number] CDT!29 documented in this encounter Plan of Treatment Not on filedocumented as of this encounter Visit Diagnoses Not on filedocumented in this encounter
--- OUTSIDE RECORDS SUMMARY | 2022-05-12 14:40 | XMS_ITS | Encounter Summary ---
:1990 Author Organization [facility] Address [address] [place] [address] Care Team Providers Name Role Phone Unavailable Primary Care Provider Unavailable Encounter Details Date Type Department Care Team Description 10/29/2015 Hospital Encounter HX [facility]ILY[facility] Yosi Betancur, P.A.-C. [address] [place] [phone] (Wo rk) Social History Tobacco Use Types [...] Omalley, P.A.-C. - 10/29/2015 10:02 AM CDT [id number] CHIEF COMPLAINT/REASON FOR VISIT Anxiety/depression recheck. HISTORY [...] OMALLEY PA-C On: 12/11/2015 01:21 PM Source: [facility] MHSDOLBEYNONRADSYS Document Id: [id number] documented in this encounter Miscellaneous Notes Miscellaneous - Lynn Robert C.MLuigi - 10/29/2015 2:27 PM CDT TRACY-7 TRACY-7 Entered On: 10/29/2015 14:28 CDT Performed On: 10/29/2015 14:27 CDT by LYNN ROBERT [facility] GAD7 GAD7 Feeling nervous : Several days [...] ROBERT CMA - 10/29/2015 14:27 CDT Source: [facility] [employer] Document Id: [id number] CDT!11 Miscellaneous - Lynn Robert C.M.A. - 10/29/2015 2:27 PM CDT PHQ-9 PHQ-9 Entered On: 10/29/2015 14:28 CDT Performed On: 10/29/2015 14:27 CDT by LYNN ROBERT [facility] PHQ-9 Little interest or pleasure in [...] : Not difficult at all LYNN ROBERT [facility] - 10/29/2015 14:27 CDT Source: [employer] Document Id: [id number] CDT!13 Miscellaneous - Carol Omalley P.A.-C. - 10/29/2015 12:22 PM CDT Ambulatory Patient Summary [facility] [address] [place], [place] [phone] Visit Information Name: CELE AGUILAR [facility] Number: [id number] Current Date: 10/29/2015 12:22:08 Physicians Attending Provider: CAORL OMALLEY [facility] Primary Care Provider: PCPYOEL BRIA MICHELE has [...] once Placed in left arm 10/10/2014 / [facility] [id number] sertraline (sertraline 100 mg oral tablet) 1 Tablet(s), Oral, once a day This is a CHANGE Routed to Doctor [address] [address] Stop Taking the Following Medications: Medication list [...] Appointments Date Time Location Provider 11/12/2015 16:00 [facility] Carol Carranza Attention: Contact your local Clinic [...] if you dont have one. Go to [email or web address] and click on Create Your Account. Then, follow the directions to complete the online form. Youll be asked for your [facility] number which you can find at the top of this document. Your Goals/Additional instructions: Source: [facility] POWERCHART Document Id: [id number] Axel - Carol Omalley P.A.-C. - 10/29/2015 12:22 PM CDT Ambulatory Discharge Medication List [facility] [address] [place] [id number] Visit Information Name: CELE AGUILAR [facility] Number: [id number] Visit Date: 10/29/2015 12:22:07 Attending [...] once Placed in left arm 10/10/2014 / [facility] [id number] sertraline (sertraline 100 mg oral tablet) 1 Tablet(s), Oral, once a day This is a CHANGE Routed to [address] [address] Stop Taking the Following Medications: Medication list [...] PAC Signed On:29-OCT-2015 12:22:05 Additional Information: Source: [facility] POWERCHART Document Id: [id number] Axel - Elif Lentz L.P.NLupis - 10/29/2015 10:08 AM CDT Adult Mainframe Architect Intake/History Adult Mainframe Architect Intake/History Entered On: 10/29/2015 10:11 CDT Performed [...] Information Given By : Patient Languages : Qatari Is Patient Female and 13-50 no hysterectomy [...] ELIF LENTZ - 10/29/2015 10:08 CDT Source: [facility] POWERCHART Document Id: [id number] CDT!33 documented in this encounter Plan of Treatment Not on filedocumented as of this encounter Visit Diagnoses Not on filedocumented in this encounter Additional Health Concerns Assessment Noted Time PHQ-9 Depression Total Score: 6 10/29/2015 2:27 PM CDT documented as of this encounter
--- OUTSIDE RECORDS SUMMARY | 2022-05-12 14:40 | XMS_ITS | Encounter Summary ---
:1990 Author Organization [facility] Address [address] [place] [address] Care Team Providers Name Role Phone Unavailable Primary Care Provider Unavailable Reason for Visit Reason Onset Date Comments Outpatient COVID-19 Testing 02/25/2020 Encounter Details Date Type Department Care Team Description 02/25/2020 External Outreach Department of Lakhwinder Higuera Infect ion Upper Internal Medicine in J, D.O. Respiratory (Primary [place], [place] [address] Dx) [address] [place] [phone] Social History Tobacco Use Types Packs/Day [...] RNA, V Symptomatic (02/25/2020 2:24 PM CDT) [facility] Method Time Signature SARS-CoV-2 Swab, 02/26/2020 MKTO [...] is performed using the Aptima SARS-CoV-2 assay ([employer] which has received Emergency Use Authori zation (EUA) by the U.S. Food and Drug Administration. Fact sheets for this Emergency Use Autho rization (EUA) assay can be found at the following links: For Healthcare Providers: https://www.Metrilus a.gov/media/294800/download For Patients: https://www.fda.gov/media/ 257245/download Specimen Anatomical Collection Method Collection Time Receive d Time (Source) Location / / Volume Laterality Varies 02/25/2020 2:24 PM 0 5:02 (Nasopharynx) CDT PM CDT Lakhwinder Higuera D.O. LAB MICROBIOLOGY - GENERAL O RDERABLES Performing Organization Address City/State/ZIP Code Phon e Number [facility]- [address] [place] [id number] [place] [address] [place] [address] System [address] documented in this encounter Visit Diagnoses Diagnosis Infection Upper Respiratory - Primary documented in this encounter Additional Health Concerns Infection Onset Date Last Indicated Resolved Time COVID19 Pending 02/25/2020 02/25/2020 02/26/2020 12:54 PM CDT Assessment Noted Time PHQ-9 Depression Total Score: 6 11/12/2015 4:00 PM CDT documented as of this encounter
--- OUTSIDE RECORDS SUMMARY | 2022-05-12 14:40 | XMS_ITS | Encounter Summary ---
:1990 Author Organization [facility] Address [address] [place] [address] Care Team Providers Name Role Phone Unavailable Primary Care Provider Unavailable Encounter Details Date Type Department Care Team Description 08/03/2014 Hospital Encounter HX [facility] OBGYMercy Wilson M.D. [address] [place], [place] [phone] (Wo rk) Social History Tobacco Use Types Packs/Day Years Used Date Smoking Tobacco: Never Assessed Sex Assigned at Date Recorded Not on file documented as of this encounter Last Filed Vital Signs Vital Sign Reading Time Taken Comments Blood Pressure 116/62 08/03/2014 2:04 PM HAT BODY SORTER Pulse - - Temperature - - Respiratory Rate - - Oxygen Saturation - - Inhaled Oxygen Concentration - - Weight 84.2 kg (185 lb 10 oz) 08/03/2014 2:04 PM HAT BODY SORTER Height 163 cm (5' 4.17) 08/03/2014 2:04 PM HAT BODY SORTER Body Mass Index 31.69 08/03/2014 2:04 PM HAT BODY SORTER documented in this encounter Progress Notes Tessy [...] GANNON MD On: 08/03/2014 02:27 PM Source: [facility] POWERCHART Document Id: [id number] BODY SORTER documented in this encounter Miscellaneous Notes Telephone Encounter - Chica Finley, R.N. - 08/03/2014 3:47 PM HAT BODY SORTER FW: Prescription routing temporarily unavailable Document Contains Addenda Addendum by KVNG PHILLIPS on 03 August 2014 16:00:48 HAT BODY SORTER Resent the prescription From: CHICA FINLEY ( Nurse Line) To: LEANA Gannon Nurse; Sent: 08/03/2014 15:47:57 HAT BODY SORTER Subject: FW: Prescription routing temporarily unavailable The system is currently not able to route this prescription to the pharmacy. Please use another means to communicate this prescription to the intended pharmacy. 1 errors validating against [employer] Xml 10.6mu2.xsd Comments: 1 errors validating against [employer] Xml 10.6mu2.xsd Source: [facility] [employer] Document Id: [id number] Miscellaneous - Tessy Gannon M.D. - 08/03/2014 2:15 PM CST Ambulatory Patient Summary [facility] [address] [place], [place] [phone] Visit Information Name: CELE AGUILAR [facility] Number: [id number] Current Date: 08/03/2014 14:15:25 Physicians [...] appointment detail needed. Your Goals/Additional instructions: Source: [facility] POWERCHART Document Id: [id number] BODY SORTER Rebekacellbetina - Tessy Gannon M.D. - 08/03/2014 2:15 PM CST Ambulatory Discharge Medication List [facility] [address] [place], [place] [phone] Visit Information Name: CELE AGUILAR [facility] Number: [id number] Visit Date: 08/03/2014 14:15:24 Attending [...] MD Signed On:03-AUG-2014 14:15:22 Additional Information: Source: [facility] POWERCHART Document Id: [id number] BODY SORTER Miscellaneous - Lisa Hernandez, L.P.N. - 08/03/2014 2:04 PM CST Adult Noc Engineer Intake/History Adult Noc Engineer Intake/History Entered On: 08/03/2014 14:09 HAT BODY SORTER Performed On: 08/03/2014 14:04 HAT BODY SORTER by LISA HERNANDEZ Intake Chief Complaint : [...] 31.69 kg/m2 LISA HERNANDEZ - 08/03/2014 14:04 HAT BODY SORTER General Info Languages : Uzbek, Micronesian Is Patient Female and 13-50 no hysterectomy : No LISA HERNANDEZ - 08/03/2014 14:04 HAT BODY SORTER Subjective Pain Symptoms : LISA Willett - 08/03/2014 14:04 HAT BODY SORTER Dependent Habits Tobacco Use/Currently Using : No Exposure to Tobacco Smoke : Patient smokes Smoking Status : Former smoker LISA HERNANDEZ - 08/03/2014 14:04 HAT BODY SORTER Tobacco Use Grid Type : Cigarettes Cigarette Use Packs/Day : 0.5 LISA HERNANDEZ - 08/03/2014 14:04 HAT BODY SORTER ID Screen Travel Within Last 21 Days : No Contact with someone with Ebola : No LISA HERNANDEZ - 08/03/2014 14:04 HAT BODY SORTER Source: [facility] POWERCHART Document Id: [id number] HAT BODY SORTER!29 BODY SORTER documented in this encounter Plan of Treatment Not on filedocumented as of this encounter Procedures Procedure Name Priority Date/Time Associated Diagnosis Comme nts HXSTREP GROUP B BY Routine 08/03/2014 3:15 PM Res ults for this PCR HAT BODY SORTER procedure are i n the results section. documented in this encounter Results HXSTREP GROUP B BY PCR (08/03/2014 3:15 PM HAT BODY SORTER) [facility] Method Time Signature HXStrep Group POWERCHART B by PCR HXFinal Negative for POWERCHART Group B Strep by PCR. Specimen (Source) Anatomical Collection Method Collection Time Re ceived Time Location / / Volume Laterality Vaginal/Rectum 08/03/2014 3:15 PM HAT BODY SORTER Tessy Gannon M.D. LAB HISTORICAL ORDERS Performing Organization Address City/State/ZIP Code Phon e Number POWERCHART documented in this encounter Visit Diagnoses Not on filedocumented in this encounter
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
--- OUTSIDE RECORDS SUMMARY | 2022-05-12 14:41 | XMS_ITS | Encounter Summary ---
:1990 Author Organization [facility] Address [address] [place] [address] Care Team Providers Name Role Phone Unavailable [...] Linton M.D. - 01/03/2014 4:27 PM CDT [id number] CHIEF COMPLAINT/REASON FOR VISIT Confirmed . HISTORY [...] and the patient is leaning toward the OB-VENDING MACHINE COLLECTOR department for same. PATIENT EDUCATION: Reviewed the above. Best wishes are offered. Lauri Linton M.D./cristi Electronically Signed By: LAURI LINTON MD On: 01/05/2014 07:21 AM Source: [facility] MHSDOLBEYNONRADSYS Document Id: [id number] documented in this encounter Miscellaneous Notes Miscellaneous - Lauri Linton M.D. - 01/03/2014 5:41 PM CDT Ambulatory Discharge Medication List [address] [id number] Visit Information Name: CELE AGUILAR [facility] Number: [id number] Visit Date: 01/03/2014 17:41:09 Attending [...] MD Signed On:03-JAN-2014 17:41:08 Additional Information: Source: [facility] POWERCHART Document Id: [id number] Miscellaneous - Lauri Linton M.D. - 01/03/2014 5:41 PM CDT Ambulatory Patient Summary [address] [id number] Visit Information Name: CELE AGUILAR [facility] Number: [id number] Current Date: 01/03/2014 17:41:10 Physicians [...] appointment detail needed. Your Goals/Additional instructions: Source: [employer] Document Id: [id number] Miscellaneous - Yancy Miner L.P.N. 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 Intake/History Entered On: 01/03/2014 16:42 CDT Performed [...] Information Given By : Patient Languages : Danish, Palestinian YANCY MINER - 01/03/2014 16:40 CDT Subjective Pain Symptoms : No YANCY MINER 01/03/2014 16:40 CDT Dependent Habits Tobacco Use/Currently Using : Yes Exposure to Tobacco Smoke : Patient smokes Smoking Status : Current every day smoker YANCY MINER - 01/03/2014 16:40 CDT Tobacco Use Grid Type : Cigarettes Cigarette Use Packs/Day : 0.5 YANCY MINER 01/03/2014 16:40 CDT Source: [employer] Document Id: [id number] CDT!28 documented in this encounter Plan of Treatment Not on filedocumented as of this encounter Procedures Procedure Name Priority Date/Time Associated Diagnosis Comme nts TEST, U Routine 01/03/2014 5:20 PM Resu lts for this CDT procedure are i n the results section. documented in this encounter Results Test, Qualitative, Urine (01/03/2014 5:20 PM CDT) [facility] gist Method Time Signature HXBeta-hCG Positive POWERCHART Qualitative Urine Specimen (Source) Anatomical Collection Method Collection Time Re ceived Time Location / / Volume Laterality Urine 01/03/2014 5:20 PM CDT Lauri Linton M.D. LAB URINE ORDERABLES Performing Organization Address City/State/ZIP Code Phon e Number POWERCHART documented in this encounter Visit Diagnoses Not on filedocumented in this encounter
--- OUTSIDE RECORDS SUMMARY | 2022-05-12 14:41 | XMS_ITS | Encounter Summary ---
:1990 Author Organization [facility] Address [address] [place] [address] Care Team Providers Name Role Phone Unavailable Primary Care Provider Unavailable Encounter Details Date Type Department Care Team Description 03/14/2014 Hospital Encounter HX [facility] Mercy Desai M.D. [address] [place], [place] [phone] (Wo rk) Social History [...] JORDIN DELUNA - 03/14/2014 11:27 CDT Source: [facility] POWERCHART Document Id: [id number] CDT!3 Jordin Deluna R.N. - 03/14/2014 11:26 AM CDT Ambulatory Patient Education The following Patient Education Materials have been given to the patient: Patient Education Materials: Custom [id number] - [facility] Guide to a Healthy (CUSTOM) Custom NN4230 - [facility] Guide to a Healthy Tdap Vaccine for Women, Women Who Recently Gave , and Others in Contact With Infants-[id number] Maternal Serum Screening-TU7494 Cystic Fibrosis Carrier Testing-NS4498 A Family Guide to Eating Phenomix Fish-[facility] IC [phone] [place] Screening-[facility] IC [phone] Protecting Your Baby and Yourself From Listeriosis-[facility] Beginnings: , , and Beyond-[facility] Source: [facility] POWERCHART Document Id: [id number] Jordin Deluna R.N. - 03/14/2014 10:51 AM [...] Classification: Medical ; Code: V13.02 ; ContributorSystem: [place] WorldChart ; Last Updated: 03/14/2014 10:58 CDT ; [...] High School Graduate Exercise Type : Walking Temple Preference : Restoration: Sikhism JORDIN DELUNA - 03/14/2014 10:51 CDT Genetic/Infection [...] JORDIN DELUNA - 03/14/2014 11:19 CDT Source: [facility] POWERCHART Document Id: [id number] CDT!3 documented in this encounter Plan of [...] (ABNORMAL) Urine Microscopic (03/14/2014 11:38 AM CDT) [facility] PerspecSys Method Time Signature HXUR WBC. 11-20 (A) [...] (ABNORMAL) Urinalysis, Routine (03/14/2014 11:38 AM CDT) [facility] PerspecSys Method Time Signature Source Clean Void POWERCHART Urine HXUr Color STRAW POWERCHART Clarity Cloudy (A) POWERCHART Glucose Negative MGDL POWERCHART HXBILIRUBIN Negative POWERCHART Ketones, QL(U) Negative MGDL POWERCHART Specific >=1.030 (A) POWERCHART Camargo, POCT, U pH, POCT, Urine 6.0 POWERCHART [...] (03/14/2014 11:38 AM CDT) Analysis Performed At [facility] Time Signature Bacterial EC <=16 POWERCHART Culture, [...] strain; ESBL = Extended spectrum beta- lactamase; Birce = Beta-lactamase positive; NIKITA = mcg/mL (mg/L); [...] - GENERAL O RDERABLES Performing Organization Address City/[facility] Phon e Number POWERCHART Antibody Screen (03/14/2014 11:33 AM CDT) athologist Signature Antibody Negative POWERCHART Screen Comment: Test Performed by: [place] [address] Lab oratory Director: Apolinar Wild M.D. Specimen (Source) Anatomical Collection Method Collection Time Re ceived Time Location / / Volume Laterality 03/14/2014 11:33 AM CDT Tessy Gannon M.D. LAB BLOOD BANK TEST ORDERABL ES Performing Organization Address City/[facility] Phon e Number POWERCHART Grouping and Rh-[place] FLIP, see #[id number] (03/14/2014 11:33 AM CDT) [facility] gist Method Time Signature HX Grouping O Positive POWERCHART and Rh Specimen (Source) Anatomical Collection Method Collection Time Re ceived Time Location / / Volume Laterality 03/14/2014 11:33 AM CDT Tessy Gannon M.D. LAB BLOOD BANK TEST ORDERABL ES Performing Organization Address [facility] Phon e Number POWERCHART Automated Differential (03/14/2014 [...] Erythrocytes 3.84 (L) 3.90 - POWERCHART 5.03 [id number] Hemoglobin 11.9 (L) 12.0 - POWERCHART 15.5 [...] M.D. LAB BLOOD ADD-ON Performing Organization Address City/[facility] Code Phon e Number POWERCHART Profile II without CBC/Serum (03/14/2014 11:33 AM CDT) P athologist Signature HBs Antigen, S Negative Negative POWERCHART Comment: Test Performed by: [place] [address] Hunter Trapper: Dilcia Davison Syphilis IgG Ab, S Negative Negative POWERCHART Comment: No serologic evidence of exposure to syp hilis. Test Performed by: [facility] [address] Hunter Trapper: Dilcia Davison HX Rubella IgG-[place] Negative POWERCHART Comment: REFERENCE VALUE------ Vaccinated: Positive (>=1.0 AI) Unvaccinated: Negative (<=0.7 AI) Rubella IgG Antibody Index 0.7 POW ERCHART Comment: Test Performed by: [facility] [address] Hunter Trapper: Dilcia Davison Specimen (Source) Anatomical Collection Method Collection Time Re ceived Time Location / / Volume Laterality Blood 03/14/2014 11:33 AM CDT Tessy Gannon M.D. LAB BLOOD NON ADD-ON Performing Organization Address City/[facility]/ZIP Code Phon e Number POWERCHART HIV-1/-2 Ag and Ab Screen (03/14/2014 11:33 AM CDT) athologist Signature HIV-1/-2 Negative Negative POWERCHART Antibody Comment: Negative result does not rule out HIV in fection. If acute HIV infection is suspected in a hi gh-risk individual, submit plasma specimen for H IV-1 RNA quantification test (HIVQU) and/or HIV-2 DNA/RNA test (FHV2Q). Test Performed by: [address] [address] Hunter Trapper: Dilcia Davison Specimen (Source) Anatomical Collection Method Collection Time Re ceived Time Location / / Volume Laterality Blood 03/14/2014 11:33 AM CDT Tessy Gannon M.D. LAB MICROBIOLOGY - BLOOD ORD ERABLES Performing Organization Address City/State/ZIP Code Phon e Number POWERCHART documented in this encounter Visit Diagnoses Not on filedocumented in this encounter
--- OUTSIDE RECORDS SUMMARY | 2022-05-12 14:41 | XMS_ITS | Encounter Summary ---
:1990 Author Organization [facility] Address [address] [place] [address] Care Team Providers Name Role Phone Unavailable Primary Care Provider Unavailable Encounter Details Date Type Department Care Team Description 01/27/2014 Hospital Encounter HX [facility] Mercy Desai M.D. [address] [place], [place] [phone] (Wo rk) Social History [...] seven days in the fir st trimester. [facility] [place] INFECTION CONTROL SPECIALIST Dept. [phone] Narrative 01/27/2014 6:00 PM CDT EXAM: US OB Transvaginal INDICATION: Dates REFERRING PHYSICIAN: Jagdeep COMPARISON: None LMP: November 20, 2013 TAMY by LMP: August 27, 2014 : 9 PARA: 5 NUMBER: One CHORIONICITY: N/A CARDIAC ACTIVITY: Yes HEART RATE: 170 beats per minute. GESTATIONAL SAC = N/A ??cm = N/A weeks a nd N/A days. Gestational sac is measured only if swinomish n rump length (CRL) is not able [...] Visually normal, no adnexal mass es detected. ENGINE MONITOR: Karon Kenyon RDMS. Procedure Note Shamar Gannon [...] days. Gestational sac is measured only if swinomish n rump length (CRL) is not able [...] Visually normal, no adnexal mass es detected. ENGINE MONITOR: Karon Kenyon RDMS. IMPRESSION: 1. Single Viable Intrauterine with TAMY of September 03, 2014, inconsistent with menstrual dates. In general, it is reasonable to use the sonographically derived TAMY if it differs from that calculated using the last menstrual period (LMP) by more than seven days in the fir st trimester. [facility] [place] INFECTION CONTROL SPECIALIST Dept. [phone] Historical Provider IMG OB US PROCEDURES documented in this encounter Visit Diagnoses Not on filedocumented in this encounter
--- OUTSIDE RECORDS SUMMARY | 2022-05-12 14:41 | XMS_ITS | Encounter Summary ---
:1990 Author [address] [facility] Address [address] [place] [address] Care Team Providers Name Role Phone Unavailable Primary Care Provider Unavailable Encounter Details Date Type Department Care Team Description 03/14/2014 Hospital Encounter HX [facility] Shamar Gannon M.D. [address] [place] [phone] (Wo rk) Social History Tobacco Use Types Packs/Day Years Used Date Smoking Tobacco: Never Assessed Sex Assigned at Date Recorded Not on file documented as of this encounter Plan of Treatment Not on filedocumented as of this encounter Visit Diagnoses Not on filedocumented in this encounter
--- OUTSIDE RECORDS SUMMARY | 2022-05-12 14:41 | XMS_ITS | Encounter Summary ---
:1990 Author Organization [facility] Address [address] [place] [address] Care Team Providers Name Role Phone Unavailable Primary Care Provider Unavailable Encounter Details Date Type Department Care Team Description 01/24/2013 Hospital Encounter HX [facility] Vicky Hopkins, P.A.-CLupis [address] [place], [place] [address] (Wo rk) Social History Tobacco [...] Hopkins PLupisA.-C. - 01/24/2013 11:25 AM CDT [id number] CHIEF COMPLAINT/REASON FOR VISIT 1. Constipation. 2. [...] HOPKINS PA-C On: 02/12/2013 09:39 AM Source: [facility] MHSDOLBEYNONRADSYS Document Id: [id number] documented in this encounter Miscellaneous Notes Miscellaneous - Asmita Waller - 03/31/2014 3:00 PM CDT Health Maintenance Reminder [address] [address] CELE AGUILAR [address] [place] [address] Date of : 1990 03/31/2014 Dear CELE [...] appointment schedule -Message your Provider Go to [email or web address] to create a Patient Online Services account. Thank you for trusting your care to [facility]. Sincerely, Your Healthc are Team Source: [facility] POWERCHART Document Id: [id number] Electronically signed by Conversion, [facility] Pump Servicer Helper [id number] at 11/05/2016 4:01 AM CDT Miscellaneous - Quiana Hopkins P.A.-C. - 01/24/2013 12:34 PM CDT Ambulatory Depart Summary [place] - [address] [address] Visit Information Name: CELE AGUILAR [facility] Number: [id number] Visit Date: 01/24/2013 12:34:56 Attending [...] your provider for clarification. Additional Information: Source: [facility] POWERCHART Document Id: [id number] Miscellaneous - Quiana Hopkins P.A.-C. 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 Entered On: 01/24/2013 12:05 CDT Performed [...] Information Given By : Patient Languages : Nauruan, Tanzanian ANN SWEENEY - 01/24/2013 12:03 CDT Subjective Pain Symptoms : No ANN SWEENEY - 01/24/2013 12:03 CDT Dependent Habits Tobacco Use/Currently Using : Yes Exposure to Tobacco Smoke : Patient smokes Smoking Status : Current every day smoker ANN SWEENEY - 01/24/2013 12:03 CDT Tobacco Use Grid Type : Cigarettes Cigarette Use Packs/Day : 0.5 ANN SWEENEY 01/24/2013 12:03 CDT [facility] Document Id: [id number] CDT!25 documented in this encounter Plan of Treatment Not on filedocumented as of this encounter Procedures Procedure Name Priority Date/Time Associated Diagnosis Comme nts URINALYSIS, ROUTINE Routine 01/24/2013 11:50 AM R esults for this CDT procedure are i n the results section. documented in this encounter Results Urinalysis, Routine (01/24/2013 11:50 AM CDT) [facility] gist Method Time Signature Source Clean Void POWERCHART Urine HXUr Color Light-Yello POWERCHART w Appearance Clear POWERCHART Specific 1.006 1.003 - POWERCHART Weldon, POCT, U 1.035 pH, POCT, Urine 6.0 [...]
--- OUTSIDE RECORDS SUMMARY | 2022-05-12 14:41 | XMS_ITS | Encounter Summary ---
:1990 Author Organization [facility] Address [address] [place] [address] Care Team Providers Name Role Phone Unavailable [...] Whitney, C.N.P. - 02/24/2012 12:00 AM CDT [id number] CELE AGUILAR [birth year] [facility] [address] [place] [id number] Dear Cele: I have been informed that [...] RN, CNP On: 02/25/2012 04:12 PM Source: [facility] MHSDOLBEYNONRADSYS Document Id: [id number] Miscellaneous - Angle Whitney C.NTeto. - 02/19/2012 2:54 PM CDT Results Notification From: ANGLE WHITNEY RN SHOP WELDER To: STEVIE Whitney Nurse Sent: 02/19/2012 14:54:33 CDT ! Show up: 02/19/2012 19:54:33 [facility] Subject: Results Notification Actions: Note to Nurse Source: [facility] POWERCHART Document Id: [id number] Electronically signed by Conversion, [facility] Clinical Informatics Physician [id number] at 11/08/2016 5:27 PM CDT documented in [...]
--- OUTSIDE RECORDS SUMMARY | 2022-05-12 14:41 | XMS_ITS | Encounter Summary ---
:1990 Author Organization [facility] Address [address] [place] [address] Care Team Providers Name Role Phone Unavailable Primary Care Provider Unavailable Encounter Details Date Type Department Care Team Description 02/18/2012 Hospital Encounter HX [facility] Angle Whitney, Peña.N.P., R.N. Social [...] Whitney C.N.P. - 02/24/2012 12:00 AM CDT [id number] Patient was advised following her ultrasound evaluation of breast mass as to category 2 findings with the likelihood of fibroadenoma. She appeared reassured in this regard and she was offered surgical consultation and this was declined. Angle Whitney R.N., C.N.P./bridgett Electronically Signed By: ANGLE WHITNEY RN, CNP On: 02/26/2012 03:22 PM Source: [facility] MHSDOLBEYNONRADSYS Document Id: [id number] Angle Whitney, C.N.P. - 02/18/2012 9:15 AM CDT [id number] CHIEF COMPLAINT/REASON FOR VISIT Breast lump. HISTORY [...] Depo-Provera for control [facility] in [place]. She considers herself basically healthy without any [...] RN, CNP On: 02/25/2012 04:18 PM Source: [facility] MHSDOLBEYNONKOFI Document Id: [id number] documented in this encounter Miscellaneous Notes Miscellaneous - Alan Reynolds L.PLupisN. 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
--- OUTSIDE RECORDS SUMMARY | 2022-05-12 14:41 | XMS_ITS | Encounter Summary ---
:1990 Author Organization [facility] Address [address] [place] [address] Care Team Providers Name Role Phone Unavailable Primary Care Provider Unavailable Encounter Details Date Type Department Care Team Description 01/24/2014 Hospital Encounter HX [facility] Tessy Gannon M.D. [address] [place], [place] [phone] (Wo rk) Social History [...] (H) 55,048.0 mIU/mL ( - <=25.0) Source: [facility] POWERCHART Document Id: [id number] documented in this encounter Plan of Treatment [...] Performed At Patho logist Time Signature Beta-HCG, 07984.0 <=25.0 POWERCHART Quantitative, (H) MIUML S Specimen (Source) Anatomical Collection Method Collection Time Re ceived Time Location / / Volume Laterality Blood 01/24/2014 3:57 PM CDT Tessy Gannon M.D. LAB BLOOD ADD-ON Performing Organization Address City/State/ZIP Code Phon e Number POWERCHART documented in this encounter Visit Diagnoses Not on filedocumented in this encounter
--- OUTSIDE RECORDS SUMMARY | 2022-05-12 14:41 | XMS_ITS | Encounter Summary ---
:1990 Author Organization [facility] Address [address] [place] [address] Care Team Providers Name Role Phone Unavailable Primary Care Provider Unavailable Encounter Details Date Type Department Care Team Description 02/12/2012 Hospital Encounter HX [facility] ED Ni Barrientos, Sushant AYOUB, C.N.P., LOFTSMAN-C [address] [place] [address] [place], [place] [phone] (Wo rk) Social History [...] 02/12/2012 11:54 PM CDT ED Discharge Instructions [address] [address] or [phone] Name: CELE AGUILAR Date of : 1990 12:00 AM Visit Date: 02/12/2012 9:23 PM [facility] [address] [facility] [address] Primary Care Provider: PCP, UNASSIGNED IMPORTANT: [facility] in [place] would like to thank you for allowing us to assistyou with your healthcare needs. The following includes patient education materials and information regarding your injury/illness. Chief Complaint: Chest pain; CHEST PAIN ON & OFF Follow-Up Instructions: With: Address: When: UNASSIGNED PCP Within As Needed Comments: Patient Education Materials: [id number] CHEST WALL PAIN:COSTOCHONDRITIS The chest pain that [...] Fever over 100.0?? F (37.8?? C) ?? 9311-7323 The [employer], [address] [place] [address]. All rights reserved. This information is not intended as a substitute for professional medical care. Always follow your healthcare professional's instructions. [id number] BREAST LUMP A lump was found in [...] another exam by your doctor or a agricultural systems specialist, a mammogram, an ultrasound or possibly a [...] skin of the nipple or breast ?? [phone] [employer], [address] [place] [address]. All rights reserved. This information is not [...] arrange a ride home with a responsible alliance party. IBOYD BRIA MICHELE , or responsible alliance party have received this information and my questions have been answered. I have discussed any challenges I see with this plan with the nurse or physician. Patient Signature or Responsible Green Party/Relationship Date/Time Provider Signature Date/Time Medication Reconciliation: Reconciliation [...] arrange a ride home with a responsible alliance party. BOYD Pruett BRIA MICHELE , or responsible alliance party have received this information and my questions have been answered. I have discussed any challenges I see with this plan with the nurse or physician. Patient Signature or Responsible Green Party/Relationship Date/Time Provider Signature Date/Time This document has images extracted. Please consider using [employer] for all your patient education needs. Source: Pruffi Document Id: [id number] Navin Chapman R.N. - 02/12/2012 11:54 PM CDT ED Depart Summary [facility] Emergency Department Clinical Discharge Summary PERSON INFORMATION Name CELE AGUILAR Age 21 Years 1990 12:00 AM Sex Female Language Serbian PCP PCP, UNASSIGNED Marital Status Single Visit Id Visit Reason Chest pain; CHEST PAIN ON & OFF Specialty Enc Type Emergency Med Service Emergency Medicine Referred by Track Group [facility] ED/UC Discharge 02/12/2012 11:45 PM Tracking Id [id number] Checkout 02/12/2012 11:45 PM Checkin 02/12/2012 9:23 PM Acuity 3 -Urgent Dispo Type * Discharged to Home or Self Care Arrival 02/12/2012 9:23 PM Reg Status LOS 000 02:22 Address: [address] [place] [address] Comment: PROVIDER INFORMATION Provider Role Provider Contact Time NAVIN CHAPMAN MANDREL CLEANER Nurse 02/12/12 21:34 NI BARRIENTOS LOFTSMAN ED Provider 02/12/12 22:08 DIAGNOSIS Costochondritis 733.6; Breast mass Comment: PATIENT EDUCATION INFORMATION Instructions: CHEST WALL PAIN, Costochondritis; BREAST MASS, Uncertain Cause Follow up: With: Address: When: UNASSIGNED PCP Within As Needed Comments: Source: [employer]i Document Id: [id number] documented in this encounter Nursing Notes Navin [...] CHAPMAN RN - 02/12/2012 23:50 CDT Source: [facility] POWERRe-vinyl Document Id: [id number] Navin Chapman R.N. - 02/12/2012 9:30 PM [...] PNED ; Probability: 0 ; Diagnosis Code: [id number] Triage Chief Complaint Description : Presents to ER with c/o chest pain starting on left side and across toright. Statesthat started a week ago and comes and goes. also stated that she found a ball on her breast. Information Given By : Patient Accompanied By : Alone Mode of Arrival ED : Private vehicle Track : Medical Languages : Serbian, Central African Vital Signs Assessed : Yes NAVIN CHAPMAN [...] Acuity : 3 -Urgent Tracking Group : ALID ED/UC NAVIN CHAPMANBalbina PAT - 02/12/2012 21:46 [...] CHAPMAN RN - 02/12/2012 21:46 CDT Source: P[employer]i Document Id: [id number] documented in this encounter ED Notes Navin [...] CHAPMAN RN - 02/12/2012 23:51 CDT Source: [employer] Document Id: [id number] Ni Barrientos, GurwinderNEfrain - 02/12/2012 10:23 PM CDT Chest pain Patient: CELE AGUILAR Age: 21 years Sex: Female : 1990 Author: NI BARRIENTOS LOFTSMAN Attachments: None Associated Diagnosis: Costochondritis 733.6; Breast [...] rhythm, No ST-T changes, no ectopy, normal IA & QRS intervals, Interpretation by Emergency Physician Within normal limits, Dr Tello also viewed.. Results review:Lab results : Lab View. 02/12/2012 22:34 CDT Hgb 13.3 g/dL Hct 39.7 % WBC 6.3 x10(9)/L RBC 4.35 x10(12)/L MCV 91.3 fL RDW 12.4 % Platelet 247 x10(9)/L Neutro % 46.3 % Lymph % 37.9 % [place] % 14.2 % HI Eos % 1.0 % Baso % 0.6 % Neutro Absolute 2.89 10(9)/L Lymph Absolute 2.37 x10(9)/L [place] Absolute 0.89 x10(9)/L Eos Absolute 0.06 x10(9)/L [...] Diagnosis Breast mass (Discharge, Emergency medicine, Medical) 87[address] Plan Condition: Unchanged. Disposition: Discharged: to home. Prescriptions: Prescription Security Control Assessor. Pharmacy: Motrin 600 mg oral tablet (Ordered): 600 mg, 1 tab(s), PO, 3xDay, Take with food, 30 tab(s) Patient was given the following educational materials: CHEST WALL PAIN, Costochondritis, BREAST MASS, Uncertain Cause. Follow up with: UNASSIGNED PCP Within As Needed. Counseled: Patient. Notes: Referal sent to [facility]. Electronically Signed By: NI BARRIENTOS LOFTSMAN On: 02/12/2012 11:16 PM Modified by and Electronically Signed by: NI BARRIENTOS LOFTSMAN On: 02/12/2012 11:16 PM Source: [facility] PeopleAdmin Document Id: [id number]} documented in this encounter Miscellaneous Notes Miscellaneous - Navin Chapman R.N. - 02/12/2012 11:45 PM CDT Valuables/Belongings Valuables/Belongings Entered On: 02/12/2012 23:53 CDT Performed On: 02/12/2012 23:45 CDT by NAVIN CHAPMAN RN Valuables/Belongings Belongings Sent Home With : all personal bleonings sent home with patient Home Medication Disposition : None brought in with patient NAVIN CHAPMAN RN - 02/12/2012 23:53 CDT Source: [facility] PeopleAdmin Document Id: [id number] Miscellaneous - Conversion, Historical Provider Ser - [...] Control : 12 Lynx Visit Level : 11470 Level 4 VALERIO CORCORAN - 02/18/2012 15:56 CDT Source: [facility] PeopleAdmin Document Id: [id number] documented in this encounter Plan of Treatment [...] % 37.9 20.0 - POWERCHART 45.0 HX [place] % 14.2 (H) 0.0 - 12.0 POWERCHART [...] 10:34 PM CDT Ni Barrientos APRN, C.N.P., LOFTSMAN-C LAB BLOOD ADD-ON Performing Organization Address City/State/ZIP Code Phon e Number POWERCHART CBC with Differential (02/12/2012 10:34 PM CDT) P athologist Signature Leukocytes 6.3 3.4 - 10.5 POWERCHART X109L Erythrocytes 4.35 3.90 - 5.03 POWERCHART Q9555K Hemoglobin 13.3 12.0 - 15.5 POWERCHART GDL Hematocrit 39.7 34.9 - 44.5 POWERCHART MCV 91.3 82.0 - 98.0 POWERCHART FL HX RDW 12.4 11.9 - 15.5 POWERCHART Platelet Count 247 150 - 450 POWERCHART X109L Specimen (Source) Anatomical Collection Method Collection Time Re ceived Time Location / / Volume Laterality Blood 02/12/2012 10:34 PM CDT Ni Barrientos APRN, C.N.P., LOFTSMAN-C LAB BLOOD ADD-ON Performing Organization Address City/[facility]/ZIP Code Phon e Number POWERCHART APTT (Activated Partial Thromboplastin Time) (02/12/2012 10:34 PM CDT) Analysis Performed At Patho logist Time Signature Prothrombin 29.5 22.0 - 35.0 POWERCHART Time, P SECONDS Specimen (Source) Anatomical Collection Method Collection Time Re ceived Time Location / / Volume Laterality Blood 02/12/2012 10:34 PM CDT Ni Barrientos APRN, C.N.P., LOFTSMAN-C LAB BLOOD ADD-ON Performing Organization Address City/[facility]/ZIP Code Phon e Number POWERCHART PT (Prothrombin Time) with INR (02/12/2012 10:34 PM CDT) Analysis Performed At Patho logist Time Signature Prothrombin 12.5 12.0 - 14.6 POWERCHART Time, P SECONDS INR 0.9 POWERCHART Specimen (Source) Anatomical Collection Method Collection Time Re ceived Time Location / / Volume Laterality Blood 02/12/2012 10:34 PM CDT Ni Barrientos APRN, C.N.P., LOFTSMAN-C LAB BLOOD ADD-ON Performing Organization Address City/[facility]/ZIP Code Phon e Number POWERCHART Lipase (02/12/2012 10:34 PM CDT) P athologist Signature Lipase, S 119 23 - 300 POWERCHART INTUL Specimen (Source) Anatomical Collection Method Collection Time Re ceived Time Location / / Volume Laterality Blood 02/12/2012 10:34 PM CDT Ni Barrientos APRN, C.N.P., LOFTSMAN-C LAB BLOOD ADD-ON Performing Organization Address City/[facility]/ZIP Code Phon e Number POWERCHART Troponin T (02/12/2012 10:34 PM CDT) P athologist Signature Troponin T, S <0.010 0.000 - POWERCHART 0.010 NGML Specimen (Source) Anatomical Collection Method Collection Time Re ceived Time Location / / Volume Laterality Blood 02/12/2012 10:34 PM CDT Ni Gilbert Keith BALLARD, C.N.P., LOFTSMAN-C LAB BLOOD ADD-ON Performing Organization Address City/State/ZIP Code Phon e Number POWERCHART Magnesium (02/12/2012 10:34 PM CDT) P athologist Signature Magnesium, S 2.2 1.6 - 2.3 POWERCHART MGDL Specimen (Source) Anatomical Collection Method Collection Time Re ceived Time Location / / Volume Laterality Blood 02/12/2012 10:34 PM CDT Ni Gilbert Keith BALLARD, C.N.P., LOFTSMAN-C LAB BLOOD ADD-ON Performing Organization Address City/State/ZIP [...] 10:34 PM CDT Ni Barrientos APRN C.N.P., LOFTSMAN-C LAB BLOOD ADD-ON Performing Organization Address City/State/ZIP Code Phon e Number POWERCHART documented in this encounter Visit Diagnoses Not on filedocumented in this encounter
--- OUTSIDE RECORDS SUMMARY | 2022-05-12 14:42 | XMS_ITS | Encounter Summary ---
:1990 Author Organization [facility] Address [address] [place] [address] Care Team Providers Name Role Phone Unavailable Primary Care Provider Unavailable Encounter Details Date Type Department Care Team Description 08/30/2009 Hospital Encounter [facility]X [facility] Angelic Coronado P.A.-C. [address] [place] [address] (Wo rk) Social History Tobacco Use Types Packs/Day Years Used Date Smoking Tobacco: Never Assessed Sex Assigned at Date Recorded Not on file documented as of this encounter Progress Notes Yany Coronado P.A.-C. - 08/30/2009 4:00 PM CDT Report Document [facility] PATIENT: [id number] NAME: CELE AGUILAR ENCOUNTER: [id number] DATE OF : [birth year] SERVICE DATE: 08/30/09 PROVIDER: Yany Coronado PA-C LOCATION: [facility] DESCRIPTION: Eye INFECTION? CHARGES: 46000 ESTABLISHED PT LEVEL III 15 MINUTES DIAGNOSES: [...] C, Temporal Pulse: 70 Additional Vitals Information Project Manager Senior services are not needed for this appointment. Chief Complaint: STYES ON EYES Patient History Family History father (Unknown) Conditions: PSORIASIS mother (Unknown) Conditions: DIFFUSE HAIR LOSS sister (Unknown) Surgery and Event History Spinal Fluid Tap, diagnostic Done when 9 months old Problem List Current Visit Problems: 373.11 Hordeolum/Stye at 0392. ADDENDUM: [facility],Cosmetology Professor on 09/06/09 at 2757 CHIEF COMPLAINT/REASON FOR VISIT Eye infection. HISTORY [...] 9:00 PM Pedro Ackerman/davide at 1118. [facility] MOURAXTRANSXSYS Document Id: [id number] documented in this encounter Plan of Treatment Not on filedocumented as of this encounter Visit Diagnoses Not on filedocumented in this encounter
--- OUTSIDE RECORDS SUMMARY | 2022-05-12 14:42 | XMS_ITS | Clinical Summary ---
:1990 Author Organization [facility] Address [address] [place] [address] Care Team Providers Name Role Phone Needs [...] for each transition of care or referral. Cartera [employer] Allergies No known active allergies Medications Medication [...] Comments Blood Pressure 124/64 07/10/2016 2:32 PM LIVESTOCK SALES REPRESENTATIVE Pulse 68 07/10/2016 2:32 PM LIVESTOCK SALES REPRESENTATIVE Temperature 36.8 ??C (98.2 ??F) 06/13/2010 3:04 PM LIVESTOCK SALES REPRESENTATIVE C: 36 .8 C Respiratory Rate 16 06/13/2010 3:04 PM LIVESTOCK SALES REPRESENTATIVE Oxygen Saturation - - Inhaled Oxygen Concentration - - Weight 65.8 kg (145 lb) 07/10/2016 2:32 PM LIVESTOCK SALES REPRESENTATIVE Height - - Body Mass Index - [...] age to complete this topic Care Teams Lending Consultant Relationship Specialty Start Date End Date Needs Pcp, Assignment PCP - General 11/12/16 [place] [address]
--- OUTSIDE RECORDS SUMMARY | 2022-05-12 14:42 | XMS_ITS | Encounter Summary ---
:1990 Author Organization [facility] Address [address] [place] [address] Care Team Providers Name Role Phone Unavailable [...]
--- OUTSIDE RECORDS SUMMARY | 2022-05-12 14:42 | XMS_ITS | Encounter Summary ---
:1990 Author Organization [facility] Address [address] [place] [address] Care Team Providers Name Role Phone Unavailable Primary Care Provider Unavailable Encounter Details Date Type Department Care Team Description 07/15/2007 Hospital Encounter [facility] Alice Hairston, P.ALupis [address] [place] [address] (Wo rk) Social History Tobacco Use Types Packs/Day Years Used Date Smoking Tobacco: Never Assessed Sex Assigned at Date Recorded Not on file documented as of this encounter Plan of Treatment Not on filedocumented as of this encounter Visit Diagnoses Not on filedocumented in this encounter
--- OUTSIDE RECORDS SUMMARY | 2022-05-12 14:42 | XMS_ITS | Encounter Summary ---
:1990 Author Organization [facility] Address [address] [place] [address] Care Team Providers Name Role Phone Unavailable Primary Care Provider Unavailable Encounter Details Date Type Department Care Team Description 01/12/2012 Hospital Encounter [facility] Magy Figueroa M.D. [address] [place], [place] [address] (Wo rk) Social History [...] Figueroa M.D. - 01/12/2012 12:00 AM CDT [id number] CHIEF COMPLAINT/REASON FOR VISIT Acute urinary frequency [...] FIGUEROA MD On: 01/15/2012 08:26 PM Source: [facility] MHSDOLBEYNONRADSYS Document Id: [id number] documented in this encounter Miscellaneous Notes Miscellaneous - Amparo Figueroa M.D. - 01/14/2012 10:23 AM CDT Results Notification From: AMPARO FIGUEROA MD To: [facility] Providers Sent: 01/14/2012 10:23:15 CDT ! Show up: 01/14/2012 15:23:15 [facility] Subject: Results Notification Actions: Notify patient of results Source: [facility] POWERCHART Document Id: [id number] Amparo Castle M.D. - 01/12/2012 12:52 PM CDT Ambulatory Patient Summary [address] [address] Visit Information Name: PAYAL AGUILARJUAN RILEY Current [...] Appointments found Your Goals/Additional instructions: Source: [facility] POWERCHART Document Id: [id number] Axel - Amparo Figueroa M.D. - 01/12/2012 12:52 PM CDT Ambulatory Depart Summary [address] [address] Visit Information Name: CELE AGUILAR Visit Date: [...] provider for clarification. Additional Information: Source: [facility] POWERCHART Document Id: [id number] Miscellaneous - Rashawn Sanches L.P.N. - 01/12/2012 11:53 AM CDT Adult Healthcare Translator Intake/History Adult Healthcare Translator Intake/History Entered On: 01/12/2012 11:57 CDT Performed [...] Preferred Communication Mode : Verbal Languages : Arabic, Lebanese RASHAWN SANCHES - 01/12/2012 11:53 CDT Subjective [...] SANCHES; Reviewed Date: 01/12/2012 11:51 CDT Source: [facility] Av[employer] CommunicationsCHART Document Id: [id number] documented in this encounter Plan of Treatment [...] Complete, Includes Microscopic (01/12/2012 12:16 PM CDT) [facility] Method Time Signature Source Clean Void POWERCHART Urine HXUr Color STRAW POWERCHART Glucose Negative Negative POWERCHART HXBILIRUBIN Negative Negative POWERCHART Ketones, QL(U) Negative Negative POWERCHART Specific 1.020 >=1.030 POWERCHART [place], POCT, U pH, POCT, Urine 6.0 8.5 [...]
--- OUTSIDE RECORDS SUMMARY | 2022-05-12 14:42 | XMS_ITS | Encounter Summary ---
:1990 Author Organization [facility] Address [address] [place] [address] Care Team Providers Name Role Phone Needs Pcp, Assignment Primary Care Provider Reason for Visit Reason Comments Clinician Finder Team Encounter Details Date Type Department Care Team Description 11/18/2017 Telephone CODING DEPT ONLY 5050 Needs Pcp, Clinic hailee Finder Team FAMILY MEDICINE Ass[place] [address] Social History Tobacco Use Types Packs/Day Years Used Date Smoking Tobacco: Every Day Cigarettes 0.3 Sex Assigned at Date Recorded Not on file documented as of this encounter Plan of Treatment Not on filedocumented as of this encounter Visit Diagnoses Not on filedocumented in this encounter Care Teams Engagement Engineer Relationship Specialty Start Date End Date Needs Pcp, Assignment PCP - General 11/12/16 [place] [address] documented as of this encounter
--- OUTSIDE RECORDS SUMMARY | 2022-05-12 14:42 | XMS_ITS | Encounter Summary ---
:1990 Author Organization [facility] Address [address] [place] [address] Care Team Providers Name Role Phone Unavailable Primary Care Provider Unavailable Encounter Details Date Type Department Care Team Description 07/16/2010 Procedure Visit [facility]ella Ophthalmo Hardeep Granados [address] [facility] [place] [address] [address] [facility] [phone] [place] [address] (Wo rk) Social History Tobacco Use Types Packs/Day Years Used Date Smoking Tobacco: Never Assessed Sex Assigned at Date Recorded Not on file documented as of this encounter Plan of Treatment Not on filedocumented as of this encounter Visit Diagnoses Not on filedocumented in this encounter
--- OUTSIDE RECORDS SUMMARY | 2022-05-12 14:42 | XMS_ITS | Encounter Summary ---
:1990 Author Organization [facility] Address [address] [place] [address] Care Team Providers Name Role Phone Unavailable Primary Care Provider Unavailable Encounter Details Date Type Department Care Team Description 06/13/2010 PN Conversion Only [place] [address] [address] [place] [address] Social History Tobacco Use Types Packs/Day Years Used Date Smoking Tobacco: Never Assessed Sex Assigned at Date Recorded Not on file documented as of this encounter Plan of Treatment Not on filedocumented as of this encounter Visit Diagnoses Not on filedocumented in this encounter
--- OUTSIDE RECORDS SUMMARY | 2022-05-12 14:42 | XMS_ITS | Encounter Summary ---
:1990 Author Organization [facility] Address [address] [place] [address] Care Team Providers Name Role Phone Unavailable Primary Care Provider Unavailable Encounter Details Date Type Department Care Team Description 09/04/[address] [facility] [place] [address] Social History Tobacco Use Types Packs/Day Years Used Date Smoking Tobacco: Never Assessed Sex Assigned at Date Recorded Not on file documented as of this encounter H&P Notes Hesham Duenas M.D. - 09/04/2009 8:28 PM CDT Report Patient: CELE AGUILAR Clinical Report - Physicians/Mid Levels [facility] VisitID: [id number] [address] [place] [address] 18y, F Registration Date/Time: 09/04/2009 20:36 Time [...] 09/04/2009 20:55) Source: ISAAC BOWLESCHXTRANSXSYS Document Id: [id number] documented in this encounter Plan of Treatment Not on filedocumented as of this encounter Visit Diagnoses Not on filedocumented in this encounter
--- OUTSIDE RECORDS SUMMARY | 2022-05-12 14:42 | XMS_ITS | Encounter Summary ---
:1990 Author Organization [facility] Address [address] [place] [address] Care Team Providers Name Role Phone Needs Pcp, Assignment Primary Care Provider Reason for Visit Reason Comments Depression Registry Call 1 Encounter Details Date Type Department Care Team Description 08/03/2017 Telephone [facility] Pcp, Depress ion Registry Medicine Assignment Call 1 [address] [place] [address] [phone] Social History Tobacco Use Types Packs/Day Years Used Date Smoking Tobacco: Every Day Cigarettes 0.3 Sex Assigned at Date Recorded Not on file documented as of this encounter Nursing Notes Nilsa yAala CMA - 08/03/2017 1:35 PM CST Talked with patient and she states that she is not coming to [facility] anymore as she has moved away. TUFTER documented in this encounter Plan of Treatment Not on filedocumented as of this encounter Visit Diagnoses Not on filedocumented in this encounter Care Teams Postal Superintendent Relationship Specialty Start Date End Date Needs Pcp, Assignment PCP - General 11/12/16 [place] [address] documented as of this encounter
--- OUTSIDE RECORDS SUMMARY | 2022-05-12 14:42 | XMS_ITS | Encounter Summary ---
:[address] [facility] Address [address] [place] [address] Care Team Providers Name Role Phone Unavailable Primary Care Provider Unavailable Encounter Details Date Type Department Care Team Description 07/27/2002 Hospital Encounter [facility]X [facility] Jasbir Chambers M.D. [address] [place] [phone] (Wo rk) Social History Tobacco Use Types Packs/Day Years Used Date Smoking Tobacco: Never Assessed Sex Assigned at Date Recorded Not on file documented as of this encounter Plan of Treatment Not on filedocumented as of this encounter Visit Diagnoses Not on filedocumented in this encounter
--- OUTSIDE RECORDS SUMMARY | 2022-05-12 14:42 | XMS_ITS | Encounter Summary ---
:1990 Author Organization [facility] Address [address] [place] [address] Care Team Providers Name Role Phone Unavailable Primary Care Provider Unavailable Encounter Details Date Type Department Care Team Description 11/22/2010 PN Conversion Only PROJECT ARCHIVIST [address] [place] [address] Social History Tobacco Use Types Packs/Day Years Used Date Smoking Tobacco: Never Assessed Sex Assigned at Date Recorded Not on file documented as of this encounter Plan of Treatment Not on filedocumented as of this encounter Visit Diagnoses Not on filedocumented in this encounter
--- OUTSIDE RECORDS SUMMARY | 2022-05-12 14:42 | XMS_ITS | Encounter Summary ---
:1990 Author Organization [facility] Address [address] [place] [address] Care Team Providers Name Role Phone Unavailable Primary Care Provider Unavailable Reason for Visit Reason Comments Other Encounter Details Date Type Department Care Team Description 07/26/2010 Telephone [facility] [address] O phthalmology [place], Message Other [address] [place], [place] [id number] Social History Tobacco Use Types Packs/Day Years Used Date Smoking Tobacco: Never Assessed Sex Assigned at Date Recorded Not on file documented as of this encounter [facility], Message - 07/26/2010 4:34 PM CST pts right eyelid cyst has gotten harder and heavier - is draining - pt very irritated [phone] Created on 26Jul2010 4:34pm by FREDDY VAIL On 26Jul2010 4:41pm SUZY SWENSON wrote: wants chalazion excision before aug 05. has gotten harder and heavier. please call mom. Dot Ware. [phone] On 29Jul2010 9:26am OSVALDO ROMANO wrote: [facility] Acknowledged by OSVALDO ROMANO on 9:26am CT MARKETING MANAGER documented in this encounter Plan of Treatment Not on filedocumented as of this encounter Visit Diagnoses Not on filedocumented in this encounter
--- OUTSIDE RECORDS SUMMARY | 2022-05-12 14:42 | XMS_ITS | Encounter Summary ---
:1990 Author Organization [facility] Address [address] [place] [address] Care Team Providers Name Role Phone Unavailable Primary Care Provider Unavailable Encounter Details Date Type Department Care Team Description 11/25/[address] [facility] [address] Kirk Gonzalez MD Ophthalmology [address] [place] [address] [place] [address] [phone] Social History Tobacco Use Types Packs/Day Years Used Date Smoking Tobacco: Never Assessed Sex Assigned at Date Recorded Not on file documented as of this encounter Plan of Treatment Not on filedocumented as of this encounter Visit Diagnoses Not on filedocumented in this encounter
--- OUTSIDE RECORDS SUMMARY | 2022-05-12 14:42 | XMS_ITS | Encounter Summary ---
:1990 Author Organization [facility] Address [address] [place] [address] Care Team Providers Name Role Phone Unavailable Primary Care Provider Unavailable Encounter Details Date Type Department Care Team Description 06/25/2010 Office Visit [facility] Elvin Christian [address] [place] [address] Social History Tobacco Use Types Packs/Day Years Used Date Smoking Tobacco: Never Assessed Sex Assigned at Date Recorded Not on file documented as of this encounter Plan of Treatment Not on filedocumented as of this encounter Visit Diagnoses Not on filedocumented in this encounter
--- OUTSIDE RECORDS SUMMARY | 2022-05-12 14:42 | XMS_ITS | Encounter Summary ---
:1990 Author Organization [facility] Address [address] [place] [address] Care Team Providers Name Role Phone Unavailable Primary Care Provider Unavailable Encounter Details Date Type Department Care Team Description 09/07/2008 Hospital Encounter [facility]X [facility] Ginny Han M.D. [address] [place], [place] [address] Social History Tobacco Use Types Packs/Day Years Used Date Smoking Tobacco: Never Assessed Sex Assigned at Date Recorded Not on file documented as of this encounter Plan of Treatment Not on filedocumented as of this encounter Visit Diagnoses Not on filedocumented in this encounter
--- OUTSIDE RECORDS SUMMARY | 2022-05-12 14:42 | XMS_ITS | Encounter Summary ---
:1990 Author [facility] Address [address] [place] [address] Care Team Providers Name Role Phone Unavailable Primary Care Provider Unavailable Reason for Visit Reason Comments DEPRESSION Encounter Details Date Type Department Care Team Description 07/10/2016 Office Visit [facility] Kaye Eaton Anxi ety (Primary Dx); Medicine Depression, major, single episode, moder ate ([facility]) [address] [place] [address] [facility] [place], [place] [address] [phone] Social History Tobacco Use Types Packs/Day Years Used Date Smoking Tobacco: Every Day Cigarettes 0.3 Sex Assigned at Date Recorded Not on file documented as of this encounter Last Filed Vital Signs Vital Sign Reading Time Taken Comments Blood Pressure 124/64 07/10/2016 2:32 PM TACKING MACHINE OPERATOR Pulse 68 07/10/2016 2:32 PM TACKING MACHINE OPERATOR Temperature - - Respiratory Rate - - Oxygen Saturation - - Inhaled Oxygen Concentration - - Weight 65.8 kg (145 lb) 07/10/2016 2:32 PM TACKING MACHINE OPERATOR Height - - Body Mass Index [...] up in 1 month. Sooner if needed. ING MACHINE OPERATOR documented in this encounter [facility] Will, [...] recheck. Sooner if needed. Kaye Eaton MD ING MACHINE OPERATOR documented in this encounter Plan of Treatment Not on filedocumented as of this encounter Visit Diagnoses Diagnosis Anxiety ([facility]) - Primary Anxiety state, unspecified Depression, major, single episode, moder ate ([facility]) Major depressive disorder, single episod e, moderate documented in this encounter
--- OUTSIDE RECORDS SUMMARY | 2022-05-12 14:42 | XMS_ITS | Encounter Summary ---
:1990 Author Organization Counts include 234 beds at the [facility] Address [address] [place] [address] Care Team Providers Name Role Phone Unavailable Primary Care Provider Unavailable Encounter Details Date Type Department Care Team Description 06/13/2010 Office Visit [facility] Asmita Cadena PA-C [address] [place] [address] [place] [address] [phone] (Wo rk) Social History Tobacco Use Types Packs/Day Years Used Date Smoking Tobacco: Never Assessed Sex Assigned at Date Recorded Not on file documented as of this encounter Last Filed Vital Signs Vital Sign Reading Time Taken Comments Blood Pressure - - Pulse 96 06/13/2010 3:04 PM MEDIA/INSTRUCTIONAL DESIGNER Temperature 36.8 ??C (98.2 ??F) 06/13/2010 3:04 PM MEDIA/INSTRUCTIONAL DESIGNER C: 36 .8 C Respiratory Rate 16 06/13/2010 3:04 PM MEDIA/INSTRUCTIONAL DESIGNER Oxygen Saturation - - Inhaled Oxygen Concentration - - Weight 59.1 kg (130 lb 2.9 oz) 06/13/2010 3:04 PM MEDIA/INSTRUCTIONAL DESIGNER C : 59.1kg Height - - Body Mass Index - - documented in this encounter [facility] Asmita Alan PA-C - 06/13/2010 12:01 AM CST NAME: RAMIRO AGUILAR MR#: [id number] ACCT: [id number] VISIT: [id number] DICTATING CLINICIAN: Asmita Alan PA-C CONFIRM #: [id number] LOC: 502 CLINIC PROGRESS NOTE DATE OF VISIT: 06/13/2010 : 1990 Ramiro is a 19-year-old female who comes to the clinic today with her mom. She has had a lump on her right eyelid. It has been there for months. She saw an eye doctor shortly after she noticed this. They do remember exactly what he said but they told her not to worry about it and they told her it would go away. It did not go away. They are here today because they recently obtained medical insurance. The area is not painful. She states it has changed because it used to have a white tip on it and now it does not. It is hard to touch. Her vision is normal. There has been no redness. She is also concerned about possible tonsillitis. She noticed a couple of white spots on her left tonsil. She has had tonsillitis in the past. She currently does not have a sore throat. She does not have pain swallowing. She does not have a fever. She has not been sick recently. PAST MEDICAL HISTORY: Mom states that Ramiro had kidney reflux at the age of 7. MEDICATIONS: None. ALLERGIES: None. OBJECTIVE: VITAL SIGNS: Weight 130, respiratory rate 16, temperature 98.2, pulse 96. CONSTITUTIONAL: Sitting comfortably, appears well. She has a hard nodular lesion on the right upper eyelid. No evidence of any erythema. Sclerae and conjunctivae are clear bilaterally. The oropharynx appears nonerythematous. The tonsils are of normal size. They appear somewhat cryptic. There are a couple of white deposits but this is not purulent. No evidence for infection. NECK: No LAD. ASSESSMENT: 1. Chalazion. 2. Cryptic tonsils. PLAN: Ophthalmology consultation. Patient is reassured regarding her tonsils. Practice good oral hygiene. Return to clinic p.r.n. AMS:MEDQ C: CONFIRM #: [id number] A/INSTRUCTIONAL DESIGNER documented in this encounter Plan of Treatment Not on filedocumented as of this encounter Visit Diagnoses Not on filedocumented in this encounter
--- OUTSIDE RECORDS SUMMARY | 2022-05-12 14:42 | XMS_ITS | Encounter Summary ---
:1990 Author Organization [facility] Address [address] [place] [address] Care Team Providers Name Role Phone Unavailable Primary Care Provider Unavailable Encounter Details Date Type Department Care Team Description 08/02/2010 Procedure Visit [facility] Jose Elias Robles MD [address] [facility] [address] [place] [address] [address] [phone] [place], [place] [phone] (Wo rk) Social History Tobacco Use Types Packs/Day Years Used Date Smoking Tobacco: Never Assessed Sex Assigned at Date Recorded Not on file documented as of this encounter Plan of Treatment Not on filedocumented as of this encounter Visit Diagnoses Not on filedocumented in this encounter
== END 2022-05-12 13:58 | disposition home or self-care (01) ==
LOC: US 13:59
PROVIDERS: Visit Provider Advanced Practice Midwife
DX: Z34.91 Encounter for supervision of normal pregnancy, unspecified, first trimester (principal); Z3A.08 8 weeks gestation of pregnancy
CPT/HCPCS: 76817; 86703; 86803; 86850; 86900; 86901; 87340; 87491; 87591

== ENCOUNTER 2022-05-12 14:50 | Outpatient (CLI) | payer BC, SELFPAY ==
[2022-05-12 18:36] LABS: Hepatitis B Surface Antigen* Negative (Negative)
[2022-05-12 18:44] LABS: HIV 1/2/P24 Combo Screen* Negative (Negative)
[2022-05-12 18:53] LABS: Hepatitis C Virus Antibody* Negative (Negative)
[2022-05-12 19:14] LABS: Chlamydia DNA Amplified* NOT DETECTED (No Detected); GC DNA Amplified* NOT DETECTED (No Detected)
[2022-05-15 00:19] LABS: Varicella-Zoster Virus Ab, IgG 225.9 IV
[2022-05-15 00:26] LABS: Rubella Antibody IgG 14.1 IU/mL
[2022-05-15 06:56] LABS: Rapid Plasma Reagin (RPR) Non Reactive (Non Reactive)
== END 2022-05-12 14:51 | disposition home or self-care (01) ==
PROVIDERS: Visit Provider Advanced Practice Midwife
DX: Z34.80 Encounter for supervision of other normal pregnancy, unspecified trimester (principal)
CPT/HCPCS: 86592; 86703; 86762; 86787; 86803; 86850; 86900; 86901; 87340; 87491; 87591

== ENCOUNTER 2022-06-13 14:24 | Outpatient (CLI) | payer BC, SELFPAY | END 2022-06-13 14:25 | disposition home or self-care (01) | PROVIDERS: Visit Provider Physician Assistant | DX: N39.0 Urinary tract infection, site not specified (principal) | CPT/HCPCS: 87086 ==

== ENCOUNTER 2022-08-08 12:00 | Outpatient (CLI) | payer BC, SELFPAY ==
--- NOTE | 2022-08-08 12:15 | CRLHL7_ITS ---
For Patients: As a result of the Century Cures Act, medical imaging exams and procedure reports are released immediately into your electronic medical record. You may view this report before your referring provider. If you have questions, please contact your health care provider. OB ULTRASOUND, 08/08/2022 INDICATION: anatomy survey. TECHNIQUE: Obstetrical ultrasound. TAMY by LMP: 12/22/2022. GA: 20 w, 4 d. Position: Vertex. Placenta/Cord: Posterior. Technique: TA. Placenta tip to internal OS +5 cm. Umbilical Cord: 3 vessel cord. Placental Location: Central. Amniotic Fluid: 4.3 cm SDP (>2-<8cm) Cervix: Visualized. Technique: TA. Length of closed cervix: 4.6 cm. SURVEY: Observed Structures: Calvarium/Spine: Cerebellum, 2.1 cm, 21 weeks 1 day. Cisterna Magna 7.5 mm. Nuchal Fold 4.4 mm. Lateral Ventricle 6.4 mm. CSP Choroid Plexus Midline Falx Spine Abdomen: Stomach Abd Cord Insert Urinary bladder Kidneys Diaphragm Face: Nose/Lips Orbital view Profile Limbs: Upper Extremities Lower Extremities Hands Feet Vascular: 4Ch Heart LVOT RVOT Biometry: BPD: 5.0 cm. 21 w, 0 d, 69 percent. HC: 19.0 cm. 21 w, 2 d, 73 percent. AC: 15.7 cm. 20 w, 6 d, 52 percent. FL: 3.4 cm. 20 w, 4 d, 41 percent. FL/AC ratio: 21.5 percent. HC/AC ratio: 1.21. Heart Rate: 137 bpm. EFW: 376g. Weight: 0 lbs, 13 oz. age by this US: 21 w, 0 d. TAMY by this US: 12/19/2022. Percentile by TAMY: 56 percent. COMMENT: 1. The position is vertex. 2. There are no visualized anatomic abnormalities. REJI PENALOZA M.D. Pediatric/Diagnostic Radiologist Cardiothoracic Imaging Transcribed: 11:45 a.m. [email or web address]/Dictated by: Reji Penaloza MD @ 08/11/2022 10:48:00 AM (Electronically Signed)
== END 2022-08-08 12:01 | disposition home or self-care (01) ==
LOC: US 12:02
PROVIDERS: Visit Provider Obstetrics & Gynecology
DX: Z34.82 Encounter for supervision of other normal pregnancy, second trimester (principal); Z3A.20 20 weeks gestation of pregnancy
CPT/HCPCS: 76805

== ENCOUNTER 2022-09-12 10:44 | Outpatient (CLI) | payer BC, SELFPAY | END 2022-09-12 10:45 | disposition home or self-care (01) | LOC: NFLDREF 09-14 05:03 | PROVIDERS: Visit Provider Physician Assistant | DX: Z34.93 Encounter for supervision of normal pregnancy, unspecified, third trimester (principal); Z3A.29 29 weeks gestation of pregnancy | CPT/HCPCS: 86592 ==

== ENCOUNTER 2022-09-15 08:36 | Outpatient (CLI) | payer BC, SELFPAY | END 2022-09-15 08:37 | disposition home or self-care (01) | LOC: NFLDREF 15:07 | PROVIDERS: Visit Provider Physician Assistant | DX: R73.09 Other abnormal glucose (principal) | CPT/HCPCS: 82951; 82952 ==

== ENCOUNTER 2022-10-10 13:58 | Outpatient (CLI) | payer BC, SELFPAY ==
--- NOTE | 2022-10-10 14:00 | CRLHL7_ITS ---
For Patients: As a result of the Century Cures Act, medical imaging exams and procedure reports are released immediately into your electronic medical record. You may view this report before your referring provider. If you have questions, please contact your health care provider. INDICATION: FOLLOW UP GROWTH (LARGE FOR DATES, GDM) COMPARISON: 08/08/2022 TECHNIQUE: Real time nunez scale imaging of the fetus was performed. FINDINGS: Sonographic imaging demonstrates a single living intrauterine gestation. Fetus demonstrates a regular cardiac rate of 157 beats per minute. Fetus has a vertex position. The placenta lies posteriorly. Amniotic fluid volume appears normal and there is a single deepest vertical pocket: 7.4 cm. The estimated weight is 1698gm which lies at the 88th %. On the prior OB ultrasound exam dated 08/08/2022 the estimated weight was at the 56th%. BPD 33rd percentile. HC 72nd percentile. AC 97th percentile. FL 41st percentile. The HC/AC ratio measures 1.02 range (0.96-1.18). IMPRESSION: Sonographic gestational age 30 weeks 5 days and sonographic due date 12/14/2022. Sonographic age 8 days ahead of the clinical age. Estimated weight 88th percentile. Abdominal circumference 97th percentile. Dictated by Mika Gordon MD @ 10/10/2022 6:16:49 PM (Electronically Signed)
== END 2022-10-10 13:59 | disposition home or self-care (01) ==
LOC: US 13:59
PROVIDERS: Visit Provider Physician Assistant
DX: O36.63X0 Maternal care for excessive fetal growth, third trimester, not applicable or unspecified (principal); Z3A.30 30 weeks gestation of pregnancy
CPT/HCPCS: 76816

== ENCOUNTER 2022-10-28 17:28 | Emergency (ER) | payer BC, SELFPAY ==
[2022-10-28 17:41] VITALS: BP 92/60; PULSE 99; RESP 16; TEMP 36.1; O2SAT 95; BMI 35.4
--- NOTE | 2022-10-28 17:53 | ED_ITS ---
HPI - General Adult General Time Seen by Provider: 18:00 Date Seen: 10/28/22 Chief complaint: Psychiatric Problem/Disorder Stated complaint: Mental Health Time Seen by Provider: 10/28/22 17:51 Source: patient and RN notes reviewed Mode of arrival: ambulatory Limitations: no limitations History of Present Illness HPI narrative: Care was discussed with Dr. Garcia, process control technician prior to patient coming emergency department. Patient had triage Women's Health and is stable for evaluation. 32-year-old 002 at 32+ 1 weeks with estimated date of delivery December 22, presents with depression and suicide ideation. Patient initially was evaluated Women's Health, she was scheduled for an OB appointment today which was rescheduled but when she was called to reschedule she says she was having ?a mental breakdown. ? She is instructed to come to Women's Health for Ob evaluation and subsequently was directed to the emergency department for mental health evaluation. Patient reports history of depression on fluoxetine. Reports long history of suicide ideation with plan but no prior attempts ?because of my kids. ? Continued depression with no new specific triggers. She reports gestational diabetes which is diet controlled. Related Data Home Medications Medication Instructions Recorded Confirmed prenat.vits,felicity,[id number] 1 tab PO QDAY 05/12/22 10/28/22 Previous Rx's Medication Instructions Recorded fluoxetine 60 mg tablet 60 mg PO QDAY #30 tabs 07/11/22 Blood Glucose Meter #1 ea 09/15/22 Test Strips #100 ea 09/15/22 lancets #100 ea 09/15/22 Allergies Allergy/AdvReac Type Severity Reaction Status Date / Time No Known Drug Allergies Allergy Verified 10/28/22 15:37 [facility] Medical History (Updated 10/06/22 @ 12:49 by Bethany Crawford PA-C) Kidney disease ?N28.9 - Disorder of kidney and ureter, unspecified (ICD-10) Generalized anxiety disorder ?F41.1 - Generalized anxiety disorder (ICD-10) Depression ?F32.A - Depression, unspecified (ICD-10) UTI (urinary tract infection) (05/02/22) ?N39.0 - Urinary tract infection, site not specified (ICD-10) Surgical History (Updated 07/11/22 @ 16:37 by Jeni Salguero MD) History of 2 sections ?Z98.891 - History of uterine scar from previous surgery (ICD-10) Family History (Updated 05/12/22 @ 15:41 by Kaila Flores CNM) Mother Diabetes Sister Breast cancer Social History Narrative: 2 children. 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 Smoking Status: Former smoker Little interest or pleasure in doing things: several days Feeling down, depressed, or hopeless: more than half the days Exam Narrative: Exam Narrative: General: well nourished , NAD Head: Atraumatic and normocephalic ENT: External ears and external nose are normal Eyes: Conjunctiva clear, pupils are equal reactive, external ocular motions are intact Neck: Full spontaneous range of motion of the neck Lungs: No respiratory distress Musculoskeletal: No tenderness or deformity Abdomen: Gravid Neurologic: No gross focal neurologic deficits Skin: No rashes Psych: Flat affect, poor eye contact, occasionally tearful Const: Vital Signs, click to edit/add: Vital Signs - 24 hr 10/28/22 17:41 Temperature 97.0 F L Pulse Rate [Right Pulse Oximeter] 99 Respiratory Rate 16 Blood Pressure [Ri ght Upper Arm] 92/60 Pulse Oximetry 95 Oxygen Delivery Me thod Room Air Course Course Hospital Course: Patient seen and examined, prior records reviewed. Patient in her 3rd trimester with gestational diabetes, presents to the emergency department for mental health evaluation. Suicide ideation and reports a plan but also has forward thinking. Flat affect, poor eye contact. May benefit from intensive outpatient therapy more than admission, requested DEC assessment. Reevaluation(s) Reevaluation #1: Patient is requesting to go home. She is forward thinking, fiance is at home and can watch her overnight. She denies active suicide plan, agrees to return to the emergency department if symptoms get worse. Time: 19:44 Vital Signs Vital signs: Initial Vital Signs Temperature 97.0 F L 10/28/22 17:41 Temperature Source Temporal Artery Scan 10/28/22 17:41 Pulse Rate 99 10/28/22 17:41 Pulse Rhythm Regular 10/28/22 17:41 Respiratory Rate 16 10/28/22 17:41 Blood Pressure 92/60 10/28/22 17:41 Blood Pressure Mean 70 10/28/22 17:41 Blood Pressure Position Sitting 10/28/22 17:41 Pulse Oximetry 95 10/28/22 17:41 Oxygen Delivery Method Room Air 10/28/22 17:41 Vital Signs Temperature 97.0 F L 10/28/22 17:41 Pulse Rate 99 10/28/22 17:41 Respiratory Rate 16 10/28/22 17:41 Blood Pressure 92/60 10/28/22 17:41 Pulse Oximetry 95 10/28/22 17:41 Oxygen Delivery Method Room Air 10/28/22 17:41 Temperature 97.0 F L 10/28/22 17:41 Pulse Rate 99 10/28/22 17:41 Respiratory Rate 16 10/28/22 17:41 Blood Pressure 92/60 10/28/22 17:41 Pulse Oximetry 95 10/28/22 17:41 Oxygen Delivery Method Room Air 10/28/22 17:41 Discharge Plan Discharge Prescriptions: No Action prenat.vits,felicity,[id number] Tablet 1 tab PO QDAY fluoxetine 60 mg tablet 60 mg PO QDAY Qty: 30 12RF (DME) Test Strips Misc See Rx Instructions .MEDSUPPLY Qty: 100 3RF Rx Instructions: Test blood sugar 4 times daily. (DME) lancets Misc See Rx Instructions .MEDSUPPLY Qty: 100 3RF Rx Instructions: Test blood sugar 4 times daily. (DME) Blood Glucose Meter Misc See Rx Instructions .MEDSUPPLY Qty: 1 0RF Rx Instructions: As directed Follow Up/Referrals: Provider,Not a Local [Primary Care Provider] -
--- NOTE | 2022-10-28 19:42 | ED.NURSE ---
Pt attempted to leave and go home. Charge nurse redirected Pt back to room. MD notified and is at bedside.
--- NOTE | 2022-10-28 20:00 | ED.NURSE ---
DEC assessment requested to be cancelled.
== END 2022-10-28 19:50 | disposition home or self-care (01) ==
PROVIDERS: Emergency Provider Family Medicine
DX: F32.A Depression, unspecified (principal); Z3A.32 32 weeks gestation of pregnancy
CPT/HCPCS: 99284

== ENCOUNTER 2022-11-17 08:50 | Outpatient (CLI) | payer BC, SELFPAY ==
--- NOTE | 2022-11-17 08:45 | CRLHL7_ITS ---
For Patients: As a result of the Century Cures Act, medical imaging exams and procedure reports are released immediately into your electronic medical record. You may view this report before your referring provider. If you have questions, please contact your health care provider. INDICATION: GDM COMPARISON: 6 TECHNIQUE: Real time nunez scale imaging of the fetus was performed. Without non-stress testing. FINDINGS: Sonographic imaging demonstrates a single living intrauterine gestation. Fetus demonstrates a regular cardiac rate of 125 beats per minute. Fetus has a vertex position. The amniotic fluid volume appears normal and there is a single deepest pocket measurement of 5.6 cm. The fetus was active and demonstrated normal breathing movements. There was normal flexion and extension of the trunk and extremities. IMPRESSION: Normal biophysical profile score of 8 out of 8. Dictated by Mika Gordon MD @ 11/17/2022 9:58:10 AM (Electronically Signed)
== END 2022-11-17 08:51 | disposition home or self-care (01) ==
LOC: US 08:50
PROVIDERS: Visit Provider Obstetrics & Gynecology
DX: O24.419 Gestational diabetes mellitus in pregnancy, unspecified control (principal)
CPT/HCPCS: 76819

== ENCOUNTER 2022-11-25 12:43 | Outpatient (CLI) | payer BC, SELFPAY ==
--- NOTE | 2022-11-25 12:15 | CRLHL7_ITS ---
For Patients: As a result of the Century Cures Act, medical imaging exams and procedure reports are released immediately into your electronic medical record. You may view this report before your referring provider. If you have questions, please contact your health care provider. INDICATION: Gestational diabetes mellitus. Assess well-being. TECHNIQUE: Real-time nunez scale imaging of the fetus was performed. Without nonstress testing. COMPARISON: November 17, 2022. FINDINGS: Single living intrauterine in vertex presentation. Anterior placenta. heart rate 138 beats per minute. Normal amniotic fluid. Single deepest pocket measurement 5.3 cm, previously 5.6. Biophysical profile score 8/8 with 2 points given each for breathing, movement, tone, and amniotic fluid. IMPRESSION: Biophysical profile score 8/8. Dictated by Murray Herrera MD @ 11/25/2022 4:53:43 PM (Electronically Signed)
== END 2022-11-25 12:44 | disposition home or self-care (01) ==
LOC: US 12:44
PROVIDERS: Visit Provider Obstetrics & Gynecology
DX: O24.419 Gestational diabetes mellitus in pregnancy, unspecified control (principal)
CPT/HCPCS: 76819; 87081; 87653

== ENCOUNTER 2022-12-03 09:34 | Inpatient (IN) | payer BC, SELFPAY ==
[2022-12-03] VITALS (19 sets, daily range): BP systolic 89–138; BP diastolic 50–88; PULSE 55–91; RESP 16–18; TEMP 36.4–36.7; O2SAT 95–100; BMI 38.0
[2022-12-03] MEDS: LACTATED RINGERS 1000 ML 1,000 ML 125 ML IV (10:14)
[2022-12-03 10:16] LABS: Hemoglobin* 10.1 gm/dL (12.0-16.0)
--- NOTE | 2022-12-03 11:23 | W.ANESCHARGE ---
Anesthesia Charges Start Date/Time Anesthesia Start Date: 12/03/22 Anesthesia Start Time: 12:33 Stop Date/Time Anesthesia Stop Date: 12/03/22 Anesthesia Stop Time: 14:11
--- NOTE | 2022-12-03 13:47 | P.OBPRC_ITS ---
Procedure Time Seen by Provider: 13:47 Date of procedure: 12/03/22 Pre-op diagnosis: 37 2/7 weeks, uncontrolled GDMA2, severe depression/anxiety, h/o C/Sx2 Post-op diagnosis: same Procedure Done: Global Will [facility] bill your pro fee for this procedure?: Yes Blood Loss Measurement Type: QBL (515 mL) Bakri Used: No Urine Output (mL): 100 Surgeon: Sulaiman Anesthesia type: TAP block Findings: Live-born male, cephalic, loose nuchal cord x1, Apgars 9 in 9, weight 3750 g (8 # 4 oz), moderate adhesions involving rectus muscles, fascia, peritoneum, omentum, lower uterine segment, bladder. Procedure Description: PROCEDURE: After obtaining informed consent, the patient was taken to the operating room where spinal anesthesia was obtained and found to be adequate. She was prepared and draped in the normal sterile fashion in the dorsal supine position with a leftward tilt. A Pfannenstiel skin incision was made with a scalpel along the line of the patient's previous Pfannenstiel scar. This i ncision was carried down to the underlying layer of fascia with the Bovie. The fascia was incised in the midline and the incision extended laterally. The superior and inferior aspects of the fascial incision were grasped with Alessandra clamps, elevated and the underlying rectus muscles dissected off sharply and with electrocautery. This dissection took an increased amount of time given the dense adhesions. The rectus muscles were then in the midline. The adhesions between the bladder and lower uterine segment were taken down sharply with Metzenbaum scissors. The Aleksandar O retractor was then placed into the incision. The lower uterine segment was then incised in a transverse fashion with the scalpel. Upon entry into the uterus, clear amniotic fluid was noted. The uterine incision was extended laterally with blunt finger fractionation. The 's head was delivered atraumatically, followed by the remainder of the 's body. The nuchal cord was reduced over the head. The nose and mouth were suctioned with the bulb suction. The cord was doubly clamped and cut, and the infant was handed off the field to Dr. Munguia for evaluation. The placenta was delivered spontaneously with umbilical cord traction and fundal massage. The uterus was cleared of all clots and debris. The uterine incision was reapproximated in a running locking fashion with a 0 chromic suture. A 2nd layer of the same suture was used to imbricate in horizontal fashion. The vesicouterine peritoneum was reapproximated over the hysterotomy incision, with good visualization of the bladder far from the hysterotomy closure. This was done as lower uterine segment was quite thin. The gutters were irrigated and suctioned. All instruments and retractors were removed. An omental adhesion that was noted to the anterior peritoneum was isolated, transected, and pedicles suture ligated with 2-0 Vicryl. The anterior peritoneum was reapproximated in a running fashion with a 3-0 Vicryl suture. The subfascial tissues were carefully inspected and hemostasis assured. The fascia was reapproximated in a running fashion with a looped 0 Maxon suture. The subcutaneous tissues were copiously irrigated. Hemostasis was assured. The subcutaneous fat layer was reapproximated with interrupted sutures of 3-0 plain gut. The skin was closed in a subcuticular fashion with 4-0 Vicryl. Exofin surgical glue and dressing were applied. The patient tolerated the procedure well. Sponge, lap, needle, and instrument counts were reported as correct x2. A tap block was administered by anesthesia. The patient was taken to the recovery room, awake, and in stable condition. She did receive 2 grams of IV Ancef preoperatively. Complications: None. Condition: stable Disposition: floor OB Delivery Proc Additional Procedures Tubal Ligation at the time of : No
--- NOTE | 2022-12-03 14:08 | W.PM.NB ---
Nerve Block Nerve Block Time Seen by Provider: 13:57 Date Seen: 12/03/22 Type of block requested by surgeon for post-operative analgesia: TAP Side: bilateral Time out performed: Yes Verification of patient name: Yes Verification of date of : Yes Site marking: site marked Name of person performing procedure: Krunal Continuous monitoring Was continuous monitoring of O2 sat, B/P, jail manager, recorded every 15 minutes?: Yes Procedure Checklist: sterile prep, needles and gloves Ultrasound guided. Images saved: Yes Medications given in 5ml increments after negative aspiration: Marcaine %: 0.25 mL: 30 Needle gauge: 20 and Exparel mL: 10 Patient tolerated procedure well: Yes Additional comments: Needle noted adjacent to nerve Block Charges Block Charge (with Pro Fee): TAP Bilateral Use of Ultrasound Machine for Block: Yes- US Guidance/pain block
--- NOTE | 2022-12-03 14:13 | W.ANESCHARGE ---
Anesthesia Charges Start Date/Time Anesthesia Start Date: 12/03/22 Anesthesia Start Time: 12:33 Stop Date/Time Anesthesia Stop Date: 12/03/22 Anesthesia Stop Time: 14:11
[2022-12-03] MEDS: ACETAMINOPHEN 500 MG TABLET 1000 MG PO (17:05)
[2022-12-03] MEDS: KETOROLAC 30 MG/ML inj IVP (19:48)
[2022-12-04] VITALS (7 sets, daily range): BP systolic 88–101; BP diastolic 52–66; PULSE 65–71; RESP 14–16; TEMP 36.6–36.9; O2SAT 96–97
[2022-12-04] MEDS: KETOROLAC 30 MG/ML inj IVP ×4 (02:02→22:13)
[2022-12-04] MEDS: ACETAMINOPHEN 500 MG TABLET 1000 MG PO ×2 (05:32→12:36)
[2022-12-04 07:17] LABS: Hemoglobin* 9.5 gm/dL (12.0-16.0)
--- NOTE | 2022-12-04 07:48 | PM.OBDSVD1 ---
DS: Providers Provider Date of admission: 12/03/22 09:34 Primary care physician: Not a Local Provider Admitting Clinician: Carola Hilario MD Consults: 12/03/22 10:09 Consult to Telephone Answering Service Operator [CONS] Routine Comment: Reason for Consult:: Discharge Planning Needs Attending Physician on discharge: Carola Hilario MD Exam Const: Vital Signs, click to edit/add: Vital Signs - 24 hr 12/03/22 09:46 12/03/22 09:48 12/03/22 10:22 Temperature 98.1 F Pulse Rate 86 Pulse Rate [Pulse Oximeter] Respiratory Rate 18 Blood Pressure 102/56 L Blood Pressure [Ri ght Arm] Pulse Oximetry 97 Oxygen Delivery Me thod 12/03/22 14:07 12/03/22 14:13 12/03/22 14:19 Temperature 97.7 F Pulse Rate 71 77 72 Pulse Rate [Pulse Oximeter] Respiratory Rate 16 16 16 Blood Pressure 122/81 109/73 103/58 L Blood Pressure [Ri ght Arm] Pulse Oximetry 97 97 98 Oxygen Delivery Me thod Room Air Room Air Room Air 12/03/22 14:22 12/03/22 14:28 12/03/22 14:33 Temperature 97.7 F Pulse Rate 74 70 74 Pulse Rate [Pulse Oximeter] Respiratory Rate 16 16 16 Blood Pressure 121/79 118/75 121/82 Blood Pressure [Ri ght Arm] Pulse Oximetry 97 97 97 Oxygen Delivery Me thod Room Air Room Air Room Air 12/03/22 14:43 12/03/22 14:58 12/03/22 15:15 Temperature 97.5 F L Pulse Rate Pulse Rate [Pulse Oximeter] 74 66 75 Respiratory Rate 17 17 17 Blood Pressure Blood Pressure [Ri ght Arm] 127/81 138/88 103/71 Pulse Oximetry 98 99 99 Oxygen Delivery Me thod 12/03/22 15:27 12/03/22 15:38 12/03/22 16:07 Temperature Pulse Rate Pulse Rate [Pulse Oximeter] 55 L 75 91 Respiratory Rate 16 16 16 Blood Pressure Blood Pressure [Ri ght Arm] 119/62 114/73 89/50 L Pulse Oximetry 100 99 98 Oxygen Delivery Me thod 12/03/22 16:23 12/03/22 16:44 12/03/22 18:03 Temperature Pulse Rate Pulse Rate [Pulse Oximeter] 73 79 Respiratory Rate 16 16 16 Blood Pressure Blood Pressure [Ri ght Arm] 106/70 100/63 96/59 L Pulse Oximetry 99 99 Oxygen Delivery Me thod 12/03/22 19:54 12/04/22 01:01 12/04/22 05:10 Temperature 98.0 F 98.3 F 97.8 F Pulse Rate Pulse Rate [Pulse Oximeter] 78 69 70 Respiratory Rate 15 14 Blood Pressure Blood Pressure [Ri ght Arm] 95/53 L 95/54 L 94/59 L Pulse Oximetry 95 96 96 Oxygen Delivery Me thod Room Air Room Air Room Air OB - DS: Summary Hospital Course Hospital Course: The patient is a 32 year old G [] P [] at [] weeks gestation that was admitted to the Center on 12/03/22 for []. She had an [uncomplicated/complicated] [vaginal/] delivery. She delivered a viable [male/female] infant. She is [breast/bottle] feeding. the patient has done well. Peripartum Data Procedures: Procedures Operation Date: 12/03/22 11:30 Actual Procedure Side Surgeon p Repeat Section Carola Hilario MD [place] Infant Gender: Male Time Spent with Patient Time attestation: Total time spent providing and/or coordinating discharge services: Discharge Plan Discharge Date of Admission: 12/03/22 09:34 Attending Physician on Admission: Carola Hilario Primary Care Provider: Provider,Not a Local Discharge Medications: No Action prenat.vits,felicity,[id number] Tablet 1 tab PO QDAY fluoxetine 60 mg tablet 60 mg PO QDAY Qty: 30 12RF (DME) lancets Misc See Rx Instructions .MEDSUPPLY Qty: 100 3RF Rx Instructions: Test blood sugar 4 times daily. (DME) Test Strips Misc See Rx Instructions .MEDSUPPLY Qty: 100 3RF Rx Instructions: Test blood sugar 4 times daily. (DME) Blood Glucose Meter Misc See Rx Instructions .MEDSUPPLY Qty: 1 0RF Rx Instructions: As directed ferrous sulfate 325 mg (65 mg iron) tablet 325 mg PO Q OTHER DAY Qty: 30 3RF Follow Up Appointments: Provider,Not a Local [Primary Care Provider] -
[2022-12-04] MEDS: SODIUM CHLORIDE 0.9 % (FLUSH) 10 ML SYRINGE IVF ×2 (08:05→15:08)
--- NOTE | 2022-12-04 08:05 | P.OBPN_ITS ---
OB - PN:Subj Subjective Time Seen by Provider: 07:45 Date Seen: 12/04/22 Interval history: Cele is a 32 y.o. who was admitted to [facility] for a repeat done at 37 weeks r/t uncontrolled gestational diabetes and mental health problems including suicidal ideation.? She had an uncomplicated .? ? ? The patient feels well.? The pain is well controlled with current medications.? She has no new complaints.? She is breast feeding and reports things are going well.? the patient has done well.? Vitals have been stable.? She has remained afebrile.? Has a good appetite, is tolerating a general diet.? She is voiding without difficulty.? She is passing gas and has not had a bowel movement.? She is ambulating and denies any dizziness.? Has Small amount of rubra lochia.? [place] status: OB - PN: Obj Exam Physical Exam: Vital signs: Temp Pulse Resp BP Pulse Ox O2 Del Method 97.8 F 70 14 94/59 L 96 Room Air 12/04/22 05:10 12/04/22 05:10 12/04/22 05:10 12/04/22 05:10 12/04/22 05:10 12/04/22 05:10 Narrative: VSS.? Afebrile? GENERAL APPEARANCE:? normal affect, alert, no distress? MOOD:? appropriate? HEENT: normocephalic, neck supple, full ROM? CHEST:? Symmetrical chest wall movement.? Normal respiratory effort.? Clear to auscultation? HEART:? regular rate and rhythm? ABDOMEN:? soft, non-tender. Uterine fundus is firm, 1 below Umbilicus, Midline and is appropriate for the stage of recovery.? Bowel sounds present.? EXTREMITIES:? normal and no edema? SKIN: warm, dry.? Dressing on, clean/dry/intact.? No signs of infection noted.? Urinary Catheter Management: Urethral: Cath placed during this visit: yes, but has since been removed by the nurse Reason for continuing: decision to DC catheter Insertion date: 12/03/22 Insertion time: 12:45 Removal date: 12/03/22 Removal time: 22:15 OB - PN: Obj Data Labs Labs: Laboratory Results - last 24 hr 12/03/22 12/04/22 10:08 06:50 Hgb 10.1 L 9.5 L Blood Type O Positive Antibody Screen NEGATIVE OB - PN: A/P Delivery Plan day: 1 Plan: routine care Comments: Assessment/Plan? G 3 P 3 status post uncomplicated repeat .? ?? 1.? Continue route PP cares? 2.? .? May see if desired? 3.? Anticipate discharge home tomorrow or the following day per pt preference? 4.? Acute anemia.? Iron supplement ordered 5. Uncontrolled gestational diabetes. Blood sugar WNL today 6. Mental health problems, including suicidal ideation?in . States feeling good at this time. ?
[2022-12-04] MEDS: FLUOXETINE HCL 20 MG CAPSULE 60 MG PO (09:28)
[2022-12-04] MEDS: DOCUSATE SODIUM 100 MG CAPSULE PO (09:28)
[2022-12-04 14:33] LABS: Hemoglobin* 9.5 gm/dL (12.0-16.0)
[2022-12-05 04:00] VITALS: BP 96/62; PULSE 68; RESP 14; TEMP 36.8; O2SAT 96
[2022-12-05] MEDS: ACETAMINOPHEN 500 MG TABLET 1000 MG PO (06:14)
--- NOTE | 2022-12-05 08:04 | PM.OBDSVD1 ---
DS: Providers Provider Date Seen: 12/05/22 Date of admission: 12/03/22 09:34 Primary care physician: Not a Local Provider Admitting Clinician: Carola Hilario MD Consults: 12/03/22 10:09 Consult to Manufacturing Lead [CONS] Routine Comment: Reason for Consult:: Discharge Planning Needs Attending Physician on discharge: Carola Hilario MD Date of Discharge: 12/05/22 DS: Diagnosis Discharge Diagnosis (1) care following delivery: Status: Acute (2) Lactating mother: Status: Acute (3) anemia: Status: Acute (4) Generalized anxiety disorder: Status: Chronic (5) Depression: Status: Chronic (6) Suicidal ideation: Status: Acute Exam Const: Vital Signs, click to edit/add: Vital Signs - 24 hr 12/04/22 12:20 12/04/22 15:40 12/04/22 20:05 Temperature 98 F 98 F 98.4 F Pulse Rate [Pulse Oximeter] 65 65 71 Respiratory Rate 16 16 16 Blood Pressure [Ri ght Arm] 88/58 L 91/52 L 99/62 Pulse Oximetry 97 97 96 Oxygen Delivery Me thod Room Air Room Air Room Air 12/04/22 23:48 12/05/22 04:00 Temperature 98.1 F 98.2 F Pulse Rate [Pulse Oximeter] 70 68 Respiratory Rate 16 14 Blood Pressure [Ri ght Arm] 101/66 96/62 Pulse Oximetry 97 96 Oxygen Delivery Me thod Room Air Room Air Documenting provider has reviewed patient's vital signs: yes Common normals: no apparent distress HENMT: Common normals: external nose normal Head and scalp: normal to inspection Face and sinus: normal facial exam Nose: external nose normal Eye: General eye: normal appearance of both eyes Neck & C-Spine: Common normals: full ROM and supple Resp: Common normals: normal respiratory effort, no retractions, no use of accessory muscles and clear to auscultation bilaterally Auscultation: clear to auscultation bilaterally Cardio: Common normals: regular rate and regular rhythm Rate: regular rate Rhythm: regular rhythm GI: Common normals: soft to palpation and non-tender Palpation: soft : Uterus: U/2 Lochia: scant Extremity: Common normals: full ROM Psych: Common normals: thought process normal, cooperative and denies suicidal ideation Appearance: grossly normal Activity/motor behavior: appropriate eye contact Mood and affect: flat affect (slightly flat affect but responds and interacts appropriately ) Thought process: normal thought process Attention/concentration: attention grossly intact Skin: Narrative: incision well approximated without redness or drainage. OB - DS: Summary Hospital Course Hospital Course: Patient is a 32year old, G 3 now P 3?admitted on 12/01/22 at 37 Weeks, 2?Days gestation for repeat .? She had an uncomplicated delivery.? She delivered a viable male infant.? She is breast feeding and reports things are well.? the patient has done well.? Her pain is well controlled with current medications.? She has no new complaints.? Vitals have been stable. She has remained afebrile. She is voiding without difficulty. She is passing gas and has not had a bowel movement. She is ambulating and denies any dizziness. She is unsure what she is planning for control. She is considering an IUD but is worried about it migrating out of the uterus. Reviewed risks associated with an IUD. She is also considering condoms of a diaphragm. She feels that her mood is ok right now. Denies suicidal ideation at this time and states that she feels somewhat better now and that the hormones were messing with me. She was supposed to see a therapist before delivery but states that her son woke up really early and she feel back asleep so she missed that appointment. She doesn't have another appointment scheduled. She was encouraged to call today to get one set up aravind. She is agreeable to doing this. She will have a 1 week follow up with us either in person or virtual as well as 2 and 6 week appointments. A note was sent to triage for them to call her to check in her mood on Thursday and to make sure she has appointments scheduled. She knows to reach out with any concerns earlier if needed. We also had a lengthy discussion about mood disorders and . Is planing on continuing to breastfeed at this time but encouraged her to consider switching to formula if her mood gets worse or with concerns. Her partner was present and involved with this entire discussion. Peripartum Data Infant delivery method: Repeat Section Procedures: Procedures Operation Date: 12/03/22 11:30 Actual Procedure Side Surgeon p Repeat Section Carola Hilario MD complications: none Gender: Male Discharge Plan: Home Status at Discharge Functional status at discharge: independent ambulation Overall status at discharge: patient is progressing back to baseline Time Spent with Patient Time attestation: Total time spent providing and/or coordinating discharge services: Discharge Plan Discharge Disposition: Home, Self-Care Date of Admission: 12/03/22 09:34 Attending Provider on Discharge: Janette Arguello Primary Care Provider: Provider,Not a Local Condition: Stable Anticipated Discharge Date/Time: 12/05/22 10:00 Discharge Medications: New docusate sodium 100 mg Capsule 100 mg PO DAILY Qty: 90 0RF Rx Instructions: Take 1-2 tablets daily as needed for constipation. ferrous sulfate 325 mg (65 mg iron) Tablet 325 mg PO Q OTHER DAY Qty: 60 0RF ibuprofen 600 mg Tablet 600 mg PO Q6H PRN (Reason: Pain) Qty: 60 0RF fluoxetine 40 mg capsule 40 mg PO BID Qty: 30 0RF oxycodone 5 mg Tablet 5 mg PO Q4H PRN (Reason: Pain) Qty: 4 0RF Continued prenat.vits,felicity,[id number] Tablet 1 tab PO QDAY Discontinued fluoxetine 60 mg tablet 60 mg PO QDAY Qty: 30 12RF (DME) lancets Misc See Rx Instructions .MEDSUPPLY Qty: 100 3RF Rx Instructions: Test blood sugar 4 times daily. (DME) Test Strips Misc See Rx Instructions .MEDSUPPLY Qty: 100 3RF Rx Instructions: Test blood sugar 4 times daily. (DME) Blood Glucose Meter Misc See Rx Instructions .MEDSUPPLY Qty: 1 0RF Rx Instructions: As directed ferrous sulfate 325 mg (65 mg iron) tablet 325 mg PO Q OTHER DAY Qty: 30 3RF Discharge Orders: Discharge Order (Routine); Ordered 12/05/22 Ordered By: Janette Arguello Patient Education: OB /Breast Feeding Additional Instructions: Discharge instructions were reviewed with the patient including signs and symptoms of infection and home going medications? ?? Activity restrictions:? Lifting Restrictions: 20 pounds for 6 weeks? No high-impact or core exercises for 6 weeks.?? No not submerge incision under water X 2 weeks?? Nothing vaginally for 6 weeks: no tampons or intercourse? Do not drive while taking narcotic pain medication(s)? Off Work or School for 8 weeks? ?? Symptoms to report to doctor:? -Bleeding that saturates more than one pad per hour? -Passing clots larger than the size of a golf ball? -Pain not relieved by prescribed medication? -Fever above 100.4 degrees Fahrenheit? -A foul vaginal odor? -Difficulty in emotions, mood and functions? -Thoughts of hurting yourself and/or ? -Painful, reddened area in your breast? -Any drainage, redness or tenderness in your IV/epidural site? -Severe headache that doesn't improve after taking medications? -Changes in vision, including temporary loss of vision, blurred vision, and/or light sensitivity? -Upper abdominal pain (usually under ribs on the right side)? -Decrease in urination or painful, frequent urinating? -Chest pain? -Shortness of breath? -Tenderness or pain with redness and/swelling in the calf(s) of your leg? Follow up visits:?? 1. 1 week visit:?mental health check in and incision check.? 2. 2-week visit: discuss infant feeding/care concerns, review control options and screen for anxiety/depression.? 3. 6-week visit for an annual exam.? ?? consultation services are available to all mothers and babies for the first year after delivery.? To make an appointment, please call [phone].? Activity Level: Activity as Tolerated Activity Detail: Do not lift greater than 20 pounds Discharge Diet: Regular Follow Up Appointments: [facility] [Provider Group] Provider,Not a Local [Primary Care Provider] - Forms: NXTM Info Instructions
[2022-12-05 08:16] VITALS: BP 98/61; PULSE 73; RESP 16; TEMP 37; O2SAT 96
[2022-12-05] MEDS: DOCUSATE SODIUM 100 MG CAPSULE PO (08:24)
[2022-12-05] MEDS: FERROUS SULFATE 325 MG TABLET PO (08:24)
[2022-12-05] MEDS: FLUOXETINE HCL 20 MG CAPSULE 60 MG PO (08:25)
[2022-12-05] MEDS: IBUPROFEN 600 MG TABLET PO (08:25)
--- NOTE | 2022-12-05 13:49 | PC.SOCIAL ---
Met with pt and pt's fiance. Discussed how pt was feeling and pt states that she was feeling overwhelmed prior to giving as she was worried about getting everything set up for the new baby before giving . Pt reports that she is feeling relaxed at this time. Discussed pt's supports and pt states that she has her fiance that is with her at home and states she has a large family that plans to spend time at her home this weekend and help her with the new baby. Discussed mental health therapy. Pt is currently seeing Debbie Torres at [facility] in [place]. Pt missed her appointment this week due to being at the hospital. Discussed with pt on rescheduling the appointment. Pt called and left a voicemail with Debbie at [facility] requesting a call back to reschedule her appointment. Discussed with pt and pt's fiance that it is important to get the appointment rescheduled and to consistently attend her appointments. Pt's fiance will assist in observing pt for signs and symptoms of depression at home. Discussed if there was any resources that pt was in need of and pt states she has everything she needs. Pt plans to breastfeed baby to form a close sharma. Pt was appropriate and cuddling with her baby during conversation. Provided phone number to social work department if pt has any concerns/questions for social work.
== END 2022-12-05 15:15 | disposition home or self-care (01) | DRG 540 ==
PROVIDERS: Obstetrics & Gynecology; Admitting Provider Obstetrics & Gynecology; Visit Provider Obstetrics & Gynecology
PROC: 10D00Z1 Extraction of Products of Conception, Low, Open Approach (ICD-10-PCS; CPT 59514; principal; 2022-12-03 11:30)
DX: O34.211 Maternal care for low transverse scar from previous cesarean delivery (principal); O24.429 Gestational diabetes mellitus in childbirth, unspecified control; O99.344 Other mental disorders complicating childbirth; F32.2 Major depressive disorder, single episode, severe without psychotic features; F41.1 Generalized anxiety disorder; R45.851 Suicidal ideations; O90.81 Anemia of the puerperium; D62 Acute posthemorrhagic anemia; Z37.0 Single live birth; Z3A.37 37 weeks gestation of pregnancy; G89.18 Other acute postprocedural pain
CPT/HCPCS: 01961; 36415; 64488; 76816; 76819; 76942; 85018; 86850; 86900; 86901; 88307; A9270; C9290; J1885; J2274; J2370; J2405; J2590; J3490; J7120

== ENCOUNTER 2022-12-19 14:24 | Outpatient (CLI) | payer BC, SELFPAY | END 2022-12-19 14:25 | disposition home or self-care (01) | LOC: NFLDREF 14:25 | PROVIDERS: Visit Provider Advanced Practice Midwife | DX: R30.9 Painful micturition, unspecified (principal) | CPT/HCPCS: 87086 ==